=== PATIENT | male | born 1970 | race Caucasian/White ===

== ENCOUNTER 2023-12-27 09:17 | Inpatient (IN) | payer OTHER, SELFPAY ==
[2023-12-27] VITALS (9 sets, daily range): BP systolic 119–168; BP diastolic 85–99; PULSE 88–120; RESP 18–20; TEMP 36.4–37.2; O2SAT 91–100; BMI 27.9; BMI 26.0
--- NOTE | 2023-12-27 09:40 | ED_ITS ---
HPI - General Adult General Chief complaint: Unspecified Complaint, Adult Stated complaint: Infection in chin/lower lip Time Seen by Provider: 12/27/23 09:31 History of Present Illness HPI narrative: Patient is a 53-year-old gentleman who over the last several days has noted progressive swelling and induration of his chin. Today is the area of swelling started involve the lower lip and there is an open approximately 2 cm pustule on the right side of his chin draining exudate of fluid. Patient has Crohn's disease and receives regular infusions but is not certain what the infusions are. His last infusion was approximately 2 weeks ago. Patient has had no fevers no chills no night sweats he has been eating and drinking normally but overall does not feel well. Upon arrival I do note that his pulse is 116 but he is afebrile. Patient states that he was hospitalized a [place] [id number] hospital in the past for a similar infection on the right cheek. Related Data Home Medications Medication Instructions Recorded Confirmed acetaminophen 500 mg tablet mg PO 12/27/23 aspirin 81 mg capsule 81 mg PO DAILY 12/27/23 12/27/23 atorvastatin 40 mg tablet 40 mg PO DAILY 12/27/23 12/27/23 diphenhydramine HCl 25 mg tablet 25 mg PO QPM 12/27/23 12/27/23 infliximab-dyyb IV 12/27/23 insulin aspart U-100 .ROUTE 12/27/23 insulin detemir U-100 subcut 12/27/23 lisinopril 2.5 mg tablet 2.5 mg PO DAILY 12/27/23 12/27/23 metoprolol tartrate 25 mg tablet 25 mg PO DAILY 12/27/23 12/27/23 pantoprazole 40 mg granules 40 mg PO DAILY 12/27/23 12/27/23 delayed-release for susp in packet Allergies Allergy/AdvReac Type Severity Reaction Status Date / Time oxycodone [From OxyContin] Allergy Intermediate Verified 12/27/23 12:37 Review of Systems Status of ROS: Reports: 10 or more systems reviewed and unremarkable except as noted in History and below [facility] Medical History Crohn's disease ?K50.90 - Crohn's disease, unspecified, without complications (ICD-10) Exam Narrative: Exam Narrative: EXAM GENERAL: Patient appears comfortable EYES: No scleral icterus. Face: Massive swelling of the mandible inferiorly into the right with large pustule draining the white discharge. There is significant swelling of the lower lip but no intraoral abnormalities. LYMPH: No supraclavicular or cervical lymphadenopathy. SKIN: Visible skin seen during exam normal or with benign process only. EXT: No dependent lower extremity pedal edema. HEART: Regular rate and rhythm with no murmurs, rubs, or gallops. LUNGS: Clear to auscultation bilaterally with no crackles or wheezes. ABD: Soft, non tender, non distended. PSYCH: Good eye contact, speech is not pressured. Const: Vital Signs, click to edit/add: Vital Signs - 24 hr 12/27/23 09:22 12/27/23 12:36 Temperature 97.6 F Pulse Rate [Pulse Oximeter] 116 H 118 H Respiratory Rate 18 18 Blood Pressure [[facility] Upper Arm] 141/95 H 168/88 H Pulse Oximetry 100 97 Oxygen Delivery Me thod Room Air Room Air Course Course ED Course: Patient seen examined procalcitonin lactate CBC comprehensive metabolic panel blood cultures x2 ordered surgery consult requested immediately. Vital Signs Vital signs: Initial Vital Signs Temperature 97.6 F 12/27/23 09:22 Temperature Source Temporal Artery Scan 12/27/23 09:22 Pulse Rate 116 H 12/27/23 09:22 Respiratory Rate 18 12/27/23 09:22 Blood Pressure 141/95 H 12/27/23 09:22 Blood Pressure Mean 110 H 12/27/23 09:22 Blood Pressure Position Sitting 12/27/23 09:22 Pulse Oximetry 100 12/27/23 09:22 Oxygen Delivery Method Room Air 12/27/23 09:22 Vital Signs Temperature 97.6 F 12/27/23 09:22 Pulse Rate 116 H 12/27/23 09:22 Respiratory Rate 18 12/27/23 09:22 Blood Pressure 141/95 H 12/27/23 09:22 Pulse Oximetry 100 12/27/23 09:22 Oxygen Delivery Method Room Air 12/27/23 09:22 Temperature 97.6 F 12/27/23 09:22 Pulse Rate 118 H 12/27/23 12:36 Respiratory Rate 18 12/27/23 12:36 Blood Pressure 168/88 H 12/27/23 12:36 Pulse Oximetry 97 12/27/23 12:36 Oxygen Delivery Method Room Air 12/27/23 12:36 Medications Administered Medications: Generic Name Dose Route Start Last Admin Trade Name Caitlyn PRN Reason Stop Dose Admin Vancomycin HCl 1,750 mg/ 517.5 mls @ 258.75 mls/hr 12/27/23 11:00 12/27/23 11:40 Sodium Chloride IVPB 12/27/23 12:59 258.75 mls/hr ONCE ONE Administration Protocol Discontinued Medications Generic Name Dose Route Start Last Admin Trade Name Caitlyn PRN Reason Stop Dose Admin Hydromorphone HCl 0.5 mg 12/27/23 10:25 12/27/23 10:52 Hydromorphone 0.5 Mg/0.5 Ml Inj IVP 12/27/23 10:26 0.5 mg ONCE ONE Administration Sodium Chloride 1,000 mls @ 1,000 mls/hr 12/27/23 10:10 12/27/23 10:52 0.9 % Sodium Chloride 1000 Ml IV 12/27/23 11:09 1,000 mls/hr .Q1H TRAVIS Administration Piperacillin Sod/Tazobactam 100 mls @ 200 mls/hr 12/27/23 10:31 12/27/23 10:53 Sod 3.375 gm/ Sodium Chloride IVPB 12/27/23 10:32 200 mls/hr ONCE ONE Administration Insulin Human Regular 10 unit 12/27/23 11:35 12/27/23 11:40 Insulin Regular 100 Unit/Ml Inj SUBCUT 12/27/23 11:36 10 unit ONCE ONE Administration Medical Decision Making [facility] Narrative Medical decision making narrative: The patient is a 53-year-old immunosuppressed gentleman who comes in today with a draining swelling on the mandible. This is fairly centered but there are openings on the right-hand side consistent with draining pus. Patient has leukocytosis and hyper glycemia. I did give him 10 units of regular insulin subcutaneously and culture his blood and drainage. I discussed case with General surgery and with Ear Nose and Throat. I a did start him on IV vancomycin and Zosyn. I reviewed the CT scan with the radiologist who does not see any significant drainable abscess. This time patient will be admitted to the hospital for a facial cellulitis to continue IV antibiotics and repeat assessment. Differential diagnosis includes but not limited to abscess versus cellulitis verses osteomyelitis. Lab Data Labs: Lab Results 12/27/23 Range/Units 09:56 WBC 19.93 H (4.50-11.00) K/uL RBC 4.83 (4.30-5.90) m/uL Hgb 13.4 L (13.5-17.5) gm/dL Hct 39.8 (37.0-53.0) % MCV 82 (80-100) fL MCH 28 (26-34) pg MCHC 34 (32-36) gm/dL RDW Coeff of [place] 13.1 (11.5-15.5) % Plt Count 473 H (140-440) K/uL Neut % (Auto) 84.9 H (42.0-72.0) % Lymph % (Auto) 7.4 L (20-44) % [place] % (Auto) 5.7 (0.0-11.0) % Eos % (Auto) 1.4 (0.0-7.0) % Baso % (Auto) 0.3 (0.0-3.0) % Neut # (Auto) 16.90 H (1.7-7.0) K/uL Lymph # (Auto) 1.50 (0.90-2.90) K/uL [place] # (Auto) 1.10 H (0.00-0.90) K/UL Eos # (Auto) 0.30 (0.00-0.50) K/uL Baso # (Auto) 0.10 (0.00-0.30) K/uL Abs Immat Gran (auto) 0.10 (0.00-0.30) K/uL Imm/Tot Granulo (auto) 0.3 % Sodium 128 L (135-149) mmol/L Potassium 4.0 (3.6-5.1) mmol/L Chloride 90 L (96-114) mmol/L Carbon Dioxide 30 (20-32) mmol/L Anion Gap 8 (7-15) mEq/L BUN 16 (7-30) mg/dL Creatinine 1.0 (0.5-1.5) mg/dL Estimated Creat Clear 90.99 Estimated GFR 90 ml/min Glucose 504 H* (60-115) mg/dL Lactate 1.5 (0.5-1.9) mmol/L Calcium 10.2 (8.4-10.6) mg/dL Total Bilirubin 0.6 (0.1-1.5) mg/dL AST 22 (12-35) U/L ALT 31 (4-50) U/L Alkaline Phosphatase 248 H (40-150) U/L Total Protein 10.2 H (6.0-8.3) g/dL Albumin 4.2 (3.3-5.0) g/dL Procalcitonin 0.51 H (<0.50) ng/mL Discharge Plan Discharge Clinical Impression: Cellulitis of face Patient Disposition: Admitted As Observation Condition: Stable Activity Level: Other Discharge Diet: Other Prescriptions: No Action acetaminophen 500 mg tablet PO aspirin 81 mg capsule 81 mg PO DAILY atorvastatin 40 mg tablet 40 mg PO DAILY diphenhydramine HCl 25 mg tablet 25 mg PO QPM infliximab-dyyb [Inflectra] IV insulin aspart U-100 [Novolog FlexPen U-100 Insulin] .ROUTE insulin detemir U-100 [Levemir FlexTouch U100 Insulin] subcut lisinopril 2.5 mg tablet 2.5 mg PO DAILY metoprolol tartrate 25 mg tablet 25 mg PO DAILY pantoprazole [address] for susp in packet 40 mg PO DAILY Follow Up/Referrals: Provider,Not a Local [Primary Care Provider] -
--- NOTE | 2023-12-27 09:56 | CT_ITS ---
Patient: ARLETTE ANDINO Facility:?[facility] R[facility] Patient ID:?[id number] Site Patient ID:?[id number]. Site :?[id number] Study:?CT-ST Neck 98CC ISOVUE 370-12/27/2023 12:30:51 PM Ordering Physician:?DR. OROZCO Final Report: INDICATION: Abscess and facial swelling COMPARISON: None TECHNIQUE: CT of the neck with IV contrast. Multiplanar reformats are included. Contrast: 98 mL Isovue 370 FINDINGS: Severe subcutaneous edema and soft tissue swelling in the chin, submandibular soft tissues, and right inferior cheek. There areas of diminished enhancement with an overlying skin wound in the right anterior chin. No well-defined or drainable abscess. The adjacent mandible has only 1 left-sided tooth. No periapical abscess or brii bony destruction. No extension of the inflammatory process into the floor of the mouth or the deep parapharyngeal spaces. Reactive appearing cervical adenopathy. The included intracranial contents are normal. Orbits and globes are normal. Mastoids and middle ears are clear. Paranasal sinuses are well aerated with a small amount of mucosal thickening in the maxillary sinus on the right. The parotid glands are normal. The submandibular glands are normal. The thyroid gland is normal. No airway deviation or compression. Normal tonsils. Normal epiglottis. Normal upper trachea. The included lung apices are clear. Atherosclerotic calcifications of the carotid bulbs without significant stenosis. No venous thrombosis or thrombophlebitis. Degenerative change in the spine. Temporomandibular joints are normally aligned. IMPRESSION: Severe chin, submandibular, and right cheek cellulitis. No drainable abscess. No extension to involve the floor of the mouth or the deep parapharyngeal spaces. Please note that all CT scans at this facility use dose modulation, iterative reconstruction, and/or weight-based dosing when appropriate to reduce radiation dose to as low as reasonably achievable. Dictated by Morenita Sanchez MD @ 12/27/2023 12:46:34 PM Signed by:?Morenita Sanchez MD @12/27/2023 12:46:34 PM (Electronic Signature)
[2023-12-27 10:13] LABS: Lactate* 1.5 mmol/L (0.5-1.9)
[2023-12-27 10:17] LABS: Basophils Percent Auto 0.3 % (0.0-3.0); Eosinophils Percent Auto 1.4 % (0.0-7.0); Hematocrit 39.8 % (37.0-53.0); Hemoglobin* 13.4 gm/dL (13.5-17.5); Immature Granulocytes Pct Auto 0.3 %; Lymphocytes Percent Auto 7.4 % (20-44); Mean Corpuscular HGB Conc 34 gm/dL (32-36); Mean Corpuscular Hemoglobin 28 pg (26-34); Mean Corpuscular Volume 82 fL (80-100); Monocytes Percent Auto 5.7 % (0.0-11.0); Neutrophils Percent Auto 84.9 % (42.0-72.0); Platelet Count* 473 K/uL (140-440); RDW Coefficient of Variation % 13.1 % (11.5-15.5); Red Blood Count 4.83 m/uL (4.30-5.90); White Blood Count* 19.93 K/uL (4.50-11.00)
[2023-12-27 10:19] LABS: Slide Review Reflex No
[2023-12-27 10:29] LABS: Albumin* 4.2 g/dL (3.3-5.0)
[2023-12-27 10:30] LABS: Chloride* 90 mmol/L (96-114); Sodium* 128 mmol/L (135-149)
[2023-12-27 10:32] LABS: Alkaline Phosphatase* 248 U/L (40-150); Anion Gap 8 mEq/L (7-15); Aspartate Amino Transferase* 22 U/L (12-35); Bilirubin Total* 0.6 mg/dL (0.1-1.5); Blood Urea Nitrogen* 16 mg/dL (7-30); Carbon Dioxide* 30 mmol/L (20-32); Est. Creatinine Clearance* 90.99; Estimated Glomerular Filt Rate 90 ml/min; Total Protein* 10.2 g/dL (6.0-8.3)
[2023-12-27 10:33] LABS: Alanine Aminotransferase* 31 U/L (4-50); Calcium* 10.2 mg/dL (8.4-10.6)
[2023-12-27 10:50] LABS: Procalcitonin* 0.51 ng/mL (<0.50)
[2023-12-27 10:51] LABS: Glucose* 504 mg/dL (60-115)
[2023-12-27] MEDS: HYDROmorphone 0.5 mg/0.5 ml inj IVP ×3 (10:52→17:17)
[2023-12-27] MEDS: 0.9 % SODIUM CHLORIDE 1000 ml 1,000 ML IV (10:52)
[2023-12-27] MEDS: PIPERACILLIN/TAZOBACTAM 3.375 GM in 0.9 % SODIUM CHLORIDE Mini-bag 100 ML IVPB ×3 (10:53→23:35)
[2023-12-27] MEDS: LACTATED RINGERS 1000 ML 1,000 ML 125 ML IV (14:21)
[2023-12-27 14:28] LABS: Hemoglobin A1C* 10.4 % (0-5.6)
[2023-12-27 14:30] LABS: C Reactive Protein* 7.8 mg/dL (0.5-1.0)
[2023-12-27] MEDS: METHYLPREDNISOLONE SOD SUCC 40 MG/ML IVP (14:34)
[2023-12-27] MEDS: KETOROLAC 30 MG/ML inj IVP (14:34)
--- NOTE | 2023-12-27 14:34 | PM.IMHP1 ---
Hospitalist- H&P: HPI History of Present Illness Date Seen: 12/27/23 Chief complaint: Facial cellulitis Narrative: Akira Merchant is a 53 year old male past medical history significant for diabetes mellitus type 2 sets, insulin dependent, hypertension, hyperlipidemia, CAD, ischemic cardiomyopathy Crohn's disease, GERD, tobacco dependence is admitted to the medical floor from the ED for further management facial cellulitis. Patient reports onset of facial swelling and pain of the chin approximately 1 week ago, slowly worsening. Overnight, lower lip significantly swelled without airway compromise. No difficulty swallowing. Has had bloody, purulent drainage from an open wound on the chin. Mild, intermittent headaches. Denies dizziness. Mild malaise, subjective fevers. Denies abdominal pain. Has had intermittent nausea without vomiting or diarrhea. No UTI symptoms. Patient had a similar episode in 2021 for which he was hospitalized for a few days. Has recurrent mild episodes of swelling which he manages with warm compresses. Patient is currently living with a friend. Recently released from a 90 day assisted stay. Has not been compliant with his medications, having run out and not gotten refills. Has not used his long-acting insulin in several months. He tells me his glucose checks while in assisted were in the 100s, using only insulin sliding scale once daily. Current smoker, <1 PPD. Denies alcohol use. History of meth use, last maybe 6 months ago. PCP is [facility]. Review of Systems Narrative: REVIEW OF SYSTEMS: Complete review of systems performed and negative unless otherwise stated in HPI or below. [facility] Medical History (Updated 12/27/23 @ 15:47 by Jordyn Bonner PA-C) Methamphetamine abuse ?F15.10 - Other stimulant abuse, uncomplicated (ICD-10) Tobacco dependence ?F17.200 - Nicotine dependence, unspecified, uncomplicated (ICD-10) Renal insufficiency ?N28.9 - Disorder of kidney and ureter, unspecified (ICD-10) Crohn's colitis ?K50.10 - Crohn's disease of large intestine without complications (ICD-10) Diabetes mellitus type 2, insulin dependent ?E11.9 - Type 2 diabetes mellitus without complications (ICD-10) ?Z79.4 - terminal operations manager (current) use of insulin (ICD-10) Hyperlipidemia ?E78.5 - Hyperlipidemia, unspecified (ICD-10) Ischemic cardiomyopathy ?I25.5 - Ischemic cardiomyopathy (ICD-10) CAD (coronary artery disease) ?I25.10 - Atherosclerotic heart disease of [place] coronary artery without angina pectoris (ICD-10) Hypertension ?I10 - Essential (primary) hypertension (ICD-10) Crohn's disease ?K50.90 - Crohn's disease, unspecified, without complications (ICD-10) Surgical History Presence of coronary angioplasty implant and graft ?Z95.5 - Presence of coronary angioplasty implant and graft (ICD-10) Social History What is your current living situation?: I presently have a place to live Problems where you live: no known problems Problems where you live details: pt lives in [facility] In the past 12 months, utilities in danger of being shut off: no In past 12 months, lack of transportation kept you from medical appts, meetings, work, or getting things needed for daily living: no In the past 12 mos, have been you worried that your food would run out before you had money to buy more?: never true In the past 12 mos, the food you bought just didn't last and you didn't have money to buy more?: never true Highest level of school completed/degree received: 11th grade Smoking Status: Current every day smoker What tobacco products do you use: cigarettes Years smoked: 15 Do you use any of these nicotine containing products: None Second hand tobacco smoke exposure: Yes How often do you have a drink containing alcohol: never How often do you have six or more drinks on one occasion: Never AUDIT-C Alcohol total score: 0 Non-prescribed substance use: denies use Caffeine: Yes How often does anyone, including family, friends and others, physically hurt you: never How often does anyone, including family, friends and others, insult or talk down to you: never How often does anyone, including family, friends and others, threaten you with harm: never How often does anyone, including family, friends and others, scream or curse at you: never service: No Meds Home Medications and Allergies Home Medications Medication Instructions Recorded Confirmed Type acetaminophen 500 mg tablet mg PO 12/27/23 History aspirin 81 mg capsule 81 mg PO DAILY 12/27/23 12/27/23 History atorvastatin 40 mg tablet 40 mg PO DAILY 12/27/23 12/27/23 History diphenhydramine HCl 25 mg tablet 25 mg PO QPM 12/27/23 12/27/23 History insulin aspart U-100 1 - 12 unit subcut TIDWMEAL 12/27/23 12/27/23 History insulin detemir U-100 40 unit subcut HS 12/27/23 12/27/23 History lisinopril 2.5 mg tablet 2.5 mg PO DAILY 12/27/23 12/27/23 History metoprolol tartrate 25 mg tablet 12.5 mg PO BID 12/27/23 12/27/23 History pantoprazole 40 mg granules 40 mg PO DAILY 12/27/23 12/27/23 History delayed-release for susp in packet Allergies Allergy/AdvReac Type Severity Reaction Status Date / Time oxycodone [From OxyContin] Allergy Intermediate Verified 12/27/23 12:37 Exam Narrative: Exam Narrative: PHYSICAL EXAM General: Pleasant, conversant, NAD HEENT: Large, swollen, firm mass from chin extending slightly distally, nontender currently, draining sanguinous, purulent fluid. Lower lip edematous without swelling of tongue or palate. Able to open mouth 3 finger breadths. No drainage noted intraorally Cardiovascular: RRR, S1S2. No pitting edema Pulmonary: CTA bilaterally without rhonchi, rales, expiratory wheezes. No dyspnea on room air Abdominal: Soft, nondistended, NTTP Neurological: Alert, answering questions appropriately, cranial nerves intact, no focal findings Extremities: No gross joint deformity or swelling. AROMI. Neurovascularly intact Skin: Warm, dry. Const: Vital Signs, click to edit/add: Vital Signs - 24 hr 12/27/23 09:22 12/27/23 12:36 12/27/23 13:34 Temperature 97.6 F Pulse Rate [Left B rachial] Pulse Rate [Pulse Oximeter] 116 H 118 H Respiratory Rate 18 18 Blood Pressure [Le ft Arm] Blood Pressure [Ri ght Upper Arm] 141/95 H 168/88 H Pulse Oximetry 100 97 92 Oxygen Delivery Me thod Room Air Room Air 12/27/23 13:54 Temperature 99 F Pulse Rate [Left B rachial] 118 H Pulse Rate [Pulse Oximeter] Respiratory Rate 18 Blood Pressure [Le ft Arm] 161/99 H Blood Pressure [Ri ght Upper Arm] Pulse Oximetry 94 Oxygen Delivery Me thod Room Air Hospitalist - H&P: Result Labs Labs: Short CBC 12/27/23 Range/Units 09:56 WBC 19.93 H (4.50-11.00) K/uL Hgb 13.4 L (13.5-17.5) gm/dL Hct 39.8 (37.0-53.0) % Plt Count 473 H (140-440) K/uL BMP 12/27/23 09:56 Sodium 128 L Potassium 4.0 Chloride 90 L Carbon Dioxide 30 BUN 16 Creatinine 1.0 Glucose 504 H* Calcium 10.2 Liver Function 12/27/23 Range/Units 09:56 Total Bilirubin 0.6 (0.1-1.5) mg/dL AST 22 (12-35) U/L ALT 31 (4-50) U/L Alkaline Phosphatase 248 H (40-150) U/L Albumin 4.2 (3.3-5.0) g/dL Imaging CT soft tissue neck: Attestation: I have reviewed the pertinent imaging results. Radiologist's impression: CT of the neck with IV contrast. Multiplanar reformats are included. Contrast: 98 mL Isovue 370 FINDINGS: Severe subcutaneous edema and soft tissue swelling in the chin, submandibular soft tissues, and right inferior cheek. There areas of diminished enhancement with an overlying skin wound in the right anterior chin. No well-defined or drainable abscess. The adjacent mandible has only 1 left-sided tooth. No periapical abscess or brii bony destruction. No extension of the inflammatory process into the floor of the mouth or the deep parapharyngeal spaces. Reactive appearing cervical adenopathy. The included intracranial contents are normal. Orbits and globes are normal. Mastoids and middle ears are clear. Paranasal sinuses are well aerated with a small amount of mucosal thickening in the maxillary sinus on the right. The parotid glands are normal. The submandibular glands are normal. The thyroid gland is normal. No airway deviation or compression. Normal tonsils. Normal epiglottis. Normal upper trachea. The included lung apices are clear. Atherosclerotic calcifications of the carotid bulbs without significant stenosis. No venous thrombosis or thrombophlebitis. Degenerative change in the spine. Temporomandibular joints are normally aligned. IMPRESSION: Severe chin, submandibular, and right cheek cellulitis. No drainable abscess. No extension to involve the floor of the mouth or the deep parapharyngeal spaces. Assessment and Plan Assessment and plan (1) Sepsis: Problem comment: Facial cellulitis Leukocytosis > 19, tachycardia, lactate 1.5, CRP 7.8, procalcitonin 0.51, currently afebrile and otherwise vitally stable Continue vancomycin and Zosyn as initiated in ED, pharmacy to dose, monitor creatinine Continue IVF Telemetry Trend labs, BCx2 pending, wound culture pending Status: Acute (2) Cellulitis of face: Problem comment: With history of same 05/2022 (MSSA at the time), admitted to [facility] Open, draining wound (which he picks at). Culture collected, pending. MRSA pending Continue vancomycin and Zosyn as initiated in ED, pharmacy to dose, monitor creatinine Methylprednisolone 40 mg IV x5 doses Pain management as needed Status: Acute (3) Crohn's colitis: Problem comment: Immunosuppressed Stable, managed with Inflectra infusions, last infusion 12/14/[address] Garcia Status: Chronic (4) Diabetes mellitus type 2, insulin dependent: Problem comment: A1c 10.4. (Reports glucose checks typically around 150) Usual home dose Levemir previously 40 units but has not been using for months, instead using only tid sliding scale. Will start back at 10 units and adjust as necessary Diabetic diet, glucose checks ACHS, insulin sliding scale Status: Chronic (5) Hypertension: Problem comment: Restart lisinopril and metoprolol. Ran out and never refilled Status: Chronic (6) Hyperlipidemia: Problem comment: Restart statin. Ran out and never refilled Status: Chronic (7) Renal insufficiency: Problem comment: Creatinine 1.0, baseline 1.0-1.5 Avoid nephrotoxic medications, continue to monitor Status: Chronic Total Time Spent Total Time Spent: Total time spent caring for the patient today was 60 minutes. This includes time spent for the visit reviewing the chart, time spent during the visit, time spent after the visit and documentation and planning in coordination of care.
[2023-12-27] MEDS: INSULIN ASPART 100 UNIT/ML SUBCUT (16:52)
--- NOTE | 2023-12-27 17:40 | PC.NURSE ---
shift note: admit to rm @ 1335 via WC. pt a&ox3. pt medicated for cheek & chin pain 8-06/26 x2 with relief. chin with bloody discharge. lips very edematous. pt denies sob or difficulty swallowing. Ls clr. IV patent. Hr levated 118-120/min with elevated BP.
[2023-12-27] MEDS: LACTATED RINGERS 1000 ML 1,000 ML IV (18:03)
[2023-12-27] MEDS: INSULIN ASPART 100 UNIT/ML 12 UNIT SUBCUT (21:41)
[2023-12-27] MEDS: ENOXAPARIN 30 MG/0.3ML INJ SUBCUT (21:43)
[2023-12-27] MEDS: METOPROLOL TARTRATE 25 MG TABLET 12.5 MG PO (21:43)
[2023-12-27] MEDS: diphenhydrAMINE 25 MG CAPSULE PO (21:43)
[2023-12-27] MEDS: INSULIN ASPART 100 UNIT/ML 8 UNIT SUBCUT (23:49)
[2023-12-28] VITALS (7 sets, daily range): BP systolic 108–141; BP diastolic 69–92; PULSE 80–93; RESP 18; TEMP 36.7–37.2; O2SAT 93–99
[2023-12-28] MEDS: LACTATED RINGERS 1000 ML 1,000 ML 125 ML IV ×3 (00:37→22:33)
[2023-12-28] MEDS: PIPERACILLIN/TAZOBACTAM 3.375 GM in 0.9 % SODIUM CHLORIDE Mini-bag 100 ML IVPB ×4 (05:47→22:33)
--- NOTE | 2023-12-28 06:54 | PC.NURSE ---
SHIFT NOTE : Pt fatigued overnight, denied pain. Denies SOB, CP, and N/V. Up SBA, tolerating well. Blood sugar at HS was 597, MD updated and insulin given as ordered. Recheck at 2300 was 451, MD updated and insulin given as ordered. Rechecked blood sugar again at 0200 and it was 329. Afebrile, oxygen saturations mid to high 90's on RA.
[2023-12-28] MEDS: OMEPRAZOLE 20 MG CAPSULE DR PO (08:34)
[2023-12-28] MEDS: lisinopriL 5 MG TABLET 2.5 MG PO (08:34)
[2023-12-28] MEDS: METOPROLOL TARTRATE 25 MG TABLET 12.5 MG PO ×2 (08:34→20:50)
[2023-12-28] MEDS: ASPIRIN 81 MG TABLET EC PO (08:34)
[2023-12-28] MEDS: METHYLPREDNISOLONE SOD SUCC 40 MG/ML IVP (08:34)
[2023-12-28] MEDS: ATORVASTATIN CALCIUM 40 MG TABLET PO (08:34)
[2023-12-28] MEDS: INSULIN ASPART 100 UNIT/ML SUBCUT ×4 (08:35→20:50)
[2023-12-28] MEDS: HYDROmorphone 0.5 mg/0.5 ml inj IVP ×3 (08:35→17:59)
[2023-12-28] MEDS: SODIUM CHLORIDE 0.9 % (FLUSH) 10 ML SYRINGE 5 ML IVF (08:36)
[2023-12-28 08:48] LABS: HCO3 VBG 29 mmol/L (21-28); PCO2 VBG 43 mmHG (40-50); PO2 VBG 34.3 mmHG (25-47); pH VBG 7.439 (7.32-7.43)
[2023-12-28 08:53] LABS: Basophils Percent Auto 0.1 % (0.0-3.0); Hematocrit 33.9 % (37.0-53.0); Hemoglobin* 11.3 gm/dL (13.5-17.5); Immature Granulocytes Pct Auto 0.3 %; Lymphocytes Percent Auto 9.5 % (20-44); Mean Corpuscular HGB Conc 33 gm/dL (32-36); Mean Corpuscular Hemoglobin 28 pg (26-34); Mean Corpuscular Volume 84 fL (80-100); Monocytes Percent Auto 5.6 % (0.0-11.0); Neutrophils Percent Auto 84.5 % (42.0-72.0); Platelet Count* 379 K/uL (140-440); RDW Coefficient of Variation % 13.3 % (11.5-15.5); Red Blood Count 4.03 m/uL (4.30-5.90); White Blood Count* 17.92 K/uL (4.50-11.00)
[2023-12-28 08:54] LABS: Slide Review Reflex No
[2023-12-28 09:04] LABS: Albumin* 3.4 g/dL (3.3-5.0); Chloride* 104 mmol/L (96-114); Sodium* 135 mmol/L (135-149)
[2023-12-28 09:05] LABS: Potassium* 4.3 mmol/L (3.6-5.1)
[2023-12-28 09:06] LABS: Creatinine* 0.9 mg/dL (0.5-1.5); Estimated Glomerular Filt Rate 102 ml/min
[2023-12-28 09:07] LABS: Alanine Aminotransferase* 26 U/L (4-50); Alkaline Phosphatase* 173 U/L (40-150); Anion Gap 4 mEq/L (7-15); Aspartate Amino Transferase* 19 U/L (12-35); Bilirubin Direct* 0.1 mg/dL (0.0-0.5); Bilirubin Total* 0.3 mg/dL (0.1-1.5); Blood Urea Nitrogen* 22 mg/dL (7-30); Carbon Dioxide* 27 mmol/L (20-32); Gamma Glutamyl Transpeptidase* 177 U/L (8-55); Glucose* 287 mg/dL (60-115); Phosphorus* 3.7 mg/dL (2.5-4.5); Prothrombin Time 14.9 Seconds; Total Protein* 8.1 g/dL (6.0-8.3)
[2023-12-28 09:08] LABS: Calcium* 9.2 mg/dL (8.4-10.6)
[2023-12-28 09:24] LABS: Procalcitonin* 0.39 ng/mL (<0.50)
[2023-12-28 09:31] LABS: Troponin I* < 0.01 ng/mL (0.01-0.04)
[2023-12-28 09:32] LABS: C Reactive Protein* 22.9 mg/dL (0.5-1.0)
--- NOTE | 2023-12-28 10:10 | P.IMCN_ITS ---
Date of Consult Patient: [facility] Patient Consult date: 12/28/23 Requesting Physician: Hospitalist Primary Care Provider: Not a Local Provider Consult Narrative Reason for consult: Wound COLLAR [employer]NER consulted for assistance with management of Facial cellulitis. Narrative: Akira Merchant is a 53 year old male past medical history significant for diabetes mellitus type 2 sets, insulin dependent, hypertension, hyperlipidemia, CAD, ischemic cardiomyopathy Crohn's disease, GERD, tobacco dependence is admitted to the medical floor from the ED for further management facial celluli tis. Facial cellulitis extending from lips, lower facial area, cervical region. Lower lip continues to present with extensive swelling. Noticable decrease with antibiotics and steroids from yesterday. Actual open wound present for approximately 1-2 weeks, gradually getting worse. Has had this happen in the past. Possibly last time from spider bite. Unclear cause at this point. Appreciate care of Hospitalist team for IV antibiotics and steroids. Diabetes not in good control. Checks daily, results ranging from 100-300s. Working toward lower blood glucose levels. Has not been taking medications as prescribed. Review of Systems Status of ROS: Reports: 6 or more systems reviewed and unremarkable except as noted in History and below Integ/Breast: Reports: redness and new lesion Allergy/Immuno: Reports: facial swelling PFSH [facility] Medical History Methamphetamine abuse ?F15.10 - Other stimulant abuse, uncomplicated (ICD-10) Tobacco dependence ?F17.200 - Nicotine dependence, unspecified, uncomplicated (ICD-10) Renal insufficiency ?N28.9 - Disorder of kidney and ureter, unspecified (ICD-10) Crohn's colitis ?K50.10 - Crohn's disease of large intestine without complications (ICD-10) Diabetes mellitus type 2, insulin dependent ?E11.9 - Type 2 diabetes mellitus without complications (ICD-10) ?Z79.4 - jail (current) use of insulin (ICD-10) Hyperlipidemia ?E78.5 - Hyperlipidemia, unspecified (ICD-10) Ischemic cardiomyopathy ?I25.5 - Ischemic cardiomyopathy (ICD-10) CAD (coronary artery disease) ?I25.10 - Atherosclerotic heart disease of [place] coronary artery without angina pectoris (ICD-10) Hypertension ?I10 - Essential (primary) hypertension (ICD-10) Crohn's disease ?K50.90 - Crohn's disease, unspecified, without complications (ICD-10) Surgical History Presence of coronary angioplasty implant and graft ?Z95.5 - Presence of coronary angioplasty implant and graft (ICD-10) Social History What is your current living situation?: I presently have a place to live Problems where you live: no known problems Problems where you live details: pt lives in [facility] In the past 12 months, utilities in danger of being shut off: no In past 12 months, lack of transportation kept you from medical appts, meetings, work, or getting things needed for daily living: no In the past 12 mos, have been you worried that your food would run out before you had money to buy more?: never true In the past 12 mos, the food you bought just didn't last and you didn't have money to buy more?: never true Highest level of school completed/degree received: 11th grade Smoking Status: Current every day smoker What tobacco products do you use: cigarettes Years smoked: 15 Do you use any of these nicotine containing products: None Second hand tobacco smoke exposure: Yes How often do you have a drink containing alcohol: never How often do you have six or more drinks on one occasion: Never AUDIT-C Alcohol total score: 0 Non-prescribed substance use: denies use Caffeine: Yes How often does anyone, including family, friends and others, physically hurt you : never How often does anyone, including family, friends and others, insult or talk down to you: never How often does anyone, including family, friends and others, threaten you with harm: never How often does anyone, including family, friends and others, scream or curse at you: never service: No Meds Home Medications and Allergies Home Medications Medication Instructions Recorded Confirmed Type acetaminophen 500 mg tablet mg PO 12/27/23 History aspirin 81 mg capsule 81 mg PO DAILY 12/27/23 12/27/23 History atorvastatin 40 mg tablet 40 mg PO DAILY 12/27/23 12/27/23 History diphenhydramine HCl 25 mg tablet 25 mg PO QPM 12/27/23 12/27/23 History insulin aspart U-100 1 - 12 unit subcut TIDWMEAL 12/27/23 12/27/23 History insulin detemir U-100 40 unit subcut HS 12/27/23 12/27/23 History lisinopril 2.5 mg tablet 2.5 mg PO DAILY 12/27/23 12/27/23 History metoprolol tartrate 25 mg tablet 12.5 mg PO BID 12/27/23 12/27/23 History pantoprazole 40 mg granules 40 mg PO DAILY 12/27/23 12/27/23 History delayed-release for susp in packet Allergies Allergy/AdvReac Type Severity Reaction Status Date / Time oxycodone [From OxyContin] Allergy Intermediate Verified 12/27/23 12:37 Exam Const: Vital Signs, click to edit/add: Vital Signs - 24 hr 12/27/23 12:36 12/27/23 13:31 12/27/23 13:33 Temperature Pulse Rate [Left B rachial] Pulse Rate [Pulse Oximeter] 118 H Respiratory Rate 18 18 Blood Pressure [Le ft Arm] Blood Pressure [Ri ght Upper Arm] 168/88 H Pulse Oximetry 97 92 91 Oxygen Delivery [facility] Room Air Room Air Room Air 12/27/23 13:33 12/27/23 13:34 12/27/23 13:54 Temperature 99 F 99 F Pulse Rate [Left B rachial] 120 H 118 H Pulse Rate [Pulse Oximeter] Respiratory Rate 18 18 Blood Pressure [Le ft Arm] 161/99 H 161/99 H Blood Pressure [Ri ght Upper Arm] Pulse Oximetry 94 92 94 Oxygen Delivery [facility] Room Air Room Air 12/27/23 15:00 12/27/23 19:00 12/27/23 23:00 Temperature 98 F Pulse Rate [Left B rachial] 120 H 92 Pulse Rate [Pulse Oximeter] Respiratory Rate 18 18 18 Blood Pressure [Le ft Arm] 119/85 Blood Pressure [Ri ght Upper Arm] Pulse Oximetry 96 Oxygen Delivery Mt [facility]od Room Air 12/27/23 23:00 12/28/23 03:00 12/28/23 07:00 Temperature 98.2 F 99 F Pulse Rate [Left B rachial] 88 80 85 Pulse Rate [Pulse Oximeter] Respiratory Rate 20 18 18 Blood Pressure [Le ft Arm] 149/99 H 108/74 Blood Pressure [Ri ght Upper Arm] Pulse Oximetry 96 96 Oxygen Delivery Me thod Room Air Room Air 12/28/23 07:00 Temperature 98.3 F Pulse Rate [Left B rachial] 80 Pulse Rate [Pulse Oximeter] Respiratory Rate 18 Blood Pressure [Le ft Arm] 134/92 H Blood Pressure [Ri ght Upper Arm] Pulse Oximetry 99 Oxygen Delivery Me thod Room Air Documenting provider has reviewed patient's vital signs: yes Common normals: no apparent distress General appearance: cooperative Orientation/consciousness: Yes awake, Yes oriented to person, Yes oriented to place and Yes oriented to time HENMT: Face and sinus: facial erythema, facial edema and facial tenderness Resp: Common normals: normal respiratory effort Neuro: Sensorium/orientation: awake, oriented to person, oriented to place and oriented to time Speech: speech normal Skin: Wounds: wounds noted size (Inferior chin depth = 1.2cm. Wound wraps from right superior to left inferior chin.), bed (Inferior opening probes to bone, firm today. Unable to visualize full wound bed. [place] 12-11 o'clock. ) pale, with slough, edematous, crusted and with undermining, drainage serosanguineous and purulent, margins macerated, without odor, open and with surrounding erythema Labs Labs: Short CBC 12/27/23 12/28/23 Range/Units 09:56 08:43 WBC 19.93 H 17.92 H (4.50-11.00) K/uL Hgb 13.4 L 11.3 L (13.5-17.5) gm/dL Hct 39.8 33.9 L (37.0-53.0) % Plt Count 473 H 379 (140-440) K/uL BMP 12/27/23 12/28/23 09:56 08:43 Sodium 128 L 135 Potassium 4.0 4.3 Chloride 90 L 104 Carbon Dioxide 30 27 BUN 16 22 Creatinine 1.0 0.9 Glucose 504 H* 287 H Calcium 10.2 9.2 Cardiac Enzymes 12/28/23 Range/Units 08:43 Troponin I < 0.01 L (0.01-0.04) ng/mL Liver Function 12/27/23 12/28/23 Range/Units 09:56 08:43 Total Bilirubin 0.6 0.3 (0.1-1.5) mg/dL Direct Bilirubin 0.1 (0.0-0.5) mg/dL GGT 177 H (8-55) U/L AST 22 19 (12-35) U/L ALT 31 26 (4-50) U/L Alkaline Phosphatase 248 H 173 H (40-150) U/L Albumin 4.2 3.4 (3.3-5.0) g/dL Assessment and Plan Assessment and plan (1) Sepsis: Problem comment: Facial cellulitis Leukocytosis > 19, tachycardia, lactate 1.5, CRP 7.8, procalcitonin 0.51, currently afebrile and otherwise vitally stable Continue vancomycin and Zosyn as initiated in ED, pharmacy to dose, monitor creatinine Continue IVF Telemetry Trend labs, BCx2 pending, wound culture pending Status: Acute Assessment and Plan: Hospital team to continue to manage big picture medical care. WBC count decreased today with current treatment. Appreciate the ability to coordinate care today with Dr. Calix for plan on Wound Care. (2) Diabetes mellitus type 2, insulin dependent: Problem comment: A1c 10.4. (Reports glucose checks typically around 150) Usual home dose Levemir previously 40 units but has not been using for months, instead using only tid sliding scale. Will start back at 10 units and adjust as necessary Diabetic diet, glucose checks ACHS, insulin sliding scale Status: Chronic (3) Cellulitis of face: Problem comment: With history of same 05/2022 (MSSA at the time), admitted to [facility] Open, draining wound (which he picks at). Culture collected, pending. MRSA pending Continue vancomycin and Zosyn as initiated in ED, pharmacy to dose, monitor creatinine Methylprednisolone 40 mg IV x5 doses Pain management as needed Status: Acute Assessment and Plan: See above exam. Inferior aspect of Wound does probe deeply. 1.2cm. Cleansed with saline to loosen surrounding debris and drainage. Review of CT completed yesterday finds no fluid filled abscess or extending infection into bone. ENT has been consulted by Hospital team, review of imaging to ensure extent of cellulitis. Likely not much tissue before bone exposure. Will need continued wound care likely after hospital course. No debridement today. Will allow for IV antibiotics and steroids to continue to assist with extensive infection. Met with Dr. Calix to coordinate care and dressing changes. Wound Care Treatment plan: -Cleanse with saline or Vashe if able to obtain. -Allow Vashe moistened gauze to remain in depth of wound bed approximately 3-5 minutes to help with bacterial burden. -Utilize one solid strip of aquacel ag. Lay over wound bed, packing inferior end into depth. -Cover with ABD pad/tape -Change dressing every other day.
[2023-12-28 11:34] LABS: Thyroid Stimulating Hormone* 0.135 uIU/mL (0.270-4.20)
--- NOTE | 2023-12-28 14:49 | P.IMPN_ITS ---
Progress Note: A&P Assessment and plan (1) Cellulitis of face: Problem details: see picture from 12/27 as separate chart note appreciate consult with wound clinic. they recommended: Wound Care Treatment plan: -Cleanse with saline or Vashe if able to obtain. -Allow Vashe moistened gauze to remain in depth of wound bed approximately 3-5 minutes to help with bacterial burden. -Utilize one solid strip of aquacel ag. Lay over wound bed, packing inferior end into depth. -Cover with ABD pad/tape -Change dressing every other day. With history of same 05/2022 (MSSA at the time), admitted to [facility] Culture collected, pending. MRSA neg Continue vancomycin and Zosyn as initiated in ED, pharmacy to dose, monitor creatinine Methylprednisolone x 2 doses, PO prednisone for 3 daily doses (lip swelling) + benadryl Pain management as needed Status: Acute (2) Sepsis: Problem details: resolved; blood culture NGTD - vitals stable. Facial cellulitis Status: Acute (3) Diabetes mellitus type 2, insulin dependent: Problem details: A1c 10.4. (Reports glucose checks typically around 150) Usual home dose Levemir previously 40 units but has not been using for months - starting back at 15 units on 12/27 with SSI support Diabetic diet, glucose checks ACHS, insulin sliding scale Status: Chronic (4) Crohn's colitis: Problem details: Immunosuppressed Stable, managed with Inflectra infusions, last infusion 12/14/[address] Garcia Status: Chronic (5) Ischemic cardiomyopathy: Status: Acute (6) Hypertension: Problem details: Restart lisinopril (increased to 5mg from 2.5mg on 12/27) and metoprolol. Ran out and never refilled Status: Chronic Subjective Date Seen: 12/28/23 Interval history: Daily Progress Note - Hospital Medicine Day #:2 CC: facial cellulitis OVERNIGHT UPDATES FROM STAFF & MED, LAB, IMAGING UPDATES afebrile. vitally stable. WBC count 19.9 --> 17.9 hgb 13.4 -->11.3 chemistries reviewed. stable/improved. CRP uptrending 7.8 --> 22.9 A1C 10.4 - BLOOD SUGARS 500-248 NO MRSA wound culture pending BC NGTD Objective: disshelved; poor hygiene and self care evident Vitals: see above Lungs: Clear. Cardiac: S1S2. ENT: large swollen lower lip - similar to yesterday abscess/cellulitic region of chin, submental space down by 50%, still draining mild lymphadenopathy palpable can open mouth widely, no airway impact evident Disposition/Potential discharge - Likely to return to previous living situation. Exam Const: Vital Signs, click to edit/add: Vital Signs - 24 hr 12/27/23 15:00 12/27/23 19:00 12/27/23 23:00 Temperature 98 F Pulse Rate [Left B rachial] 120 H 92 Respiratory Rate 18 18 18 Blood Pressure [Le ft Arm] 119/85 Pulse Oximetry 96 Oxygen Delivery Me thod Room Air 12/27/23 23:00 12/28/23 03:00 12/28/23 07:00 Temperature 98.2 F 99 F Pulse Rate [Left B rachial] 88 80 85 Respiratory Rate 20 18 18 Blood Pressure [Le ft Arm] 149/99 H 108/74 Pulse Oximetry 96 96 Oxygen Delivery Me thod Room Air Room Air 12/28/23 07:00 12/28/23 11:00 12/28/23 12:15 Temperature 98.3 F 98.0 F Pulse Rate [Left B rachial] 80 82 Respiratory Rate 18 18 Blood Pressure [Le ft Arm] 134/92 H 141/88 H Pulse Oximetry 99 97 97 Oxygen Delivery Me thod Room Air Room Air Labs Labs: Laboratory Results - last 24 hr 12/28/23 08:43 WBC 17.92 H RBC 4.03 L Hgb 11.3 L Hct 33.9 L MCV 84 MCH 28 MCHC 33 RDW Coeff of Irma 13.3 Plt Count 379 Neut % (Auto) 84.5 H Lymph % (Auto) 9.5 L Anson % (Auto) 5.6 Eos % (Auto) 0.0 Baso % (Auto) 0.1 Neut # (Auto) 15.10 H Lymph # (Auto) 1.70 Anson # (Auto) 1.00 H Eos # (Auto) 0.00 Baso # (Auto) 0.00 Abs Immat Gran (auto) 0.10 Imm/Tot Granulo (auto) 0.3 INR 1.10 VBG pH 7.439 H VBG pCO2 43 VBG pO2 34.3 VBG HCO3 29 H Sodium 135 Potassium 4.3 Chloride 104 Carbon Dioxide 27 Anion Gap 4 L BUN 22 Creatinine 0.9 Estimated Creat Clear 101.10 Estimated GFR 102 Glucose 287 H Lactate 1.0 Calcium 9.2 Phosphorus 3.7 Total Bilirubin 0.3 Direct Bilirubin 0.1 GGT 177 H AST 19 ALT 26 Alkaline Phosphatase 173 H Troponin I < 0.01 L C-Reactive Protein 22.9 H Total Protein 8.1 Albumin 3.4 Procalcitonin 0.39 TSH 0.135 L
--- NOTE | 2023-12-28 15:10 | P.CCN_ITS ---
Objective Objective Data Details:
--- NOTE | 2023-12-28 15:10 | W.PM.CROSSCO ---
Objective Objective Data Details:
[2023-12-28] MEDS: predniSONE 20 MG TABLET 40 MG PO (15:46)
[2023-12-28] MEDS: diphenhydrAMINE 25 MG CAPSULE PO ×2 (15:47→20:50)
[2023-12-28 15:56] LABS: Free T4 Free Thyroxine* 2.47 ng/dL (0.70-1.85)
--- NOTE | 2023-12-28 18:44 | PC.NURSE ---
End of Shift: Patient alert and oriented x4. Indep. in Rm, on RA, ambulates to BR. Patient's IV in right AC patent. Patient tolerating a reg. diet. rates pain 6-7/10 PRN Dilaudid administered w/relief, VSS, Denies N/V/SOB. Patient's open area on chin will be cleaned with Vashe, packed with Aquacel and covered with non-adhesive dressing (use face mask to keep in place instead of tape per MD Calix) every other day. BG 248/313/367 Novolog sliding scale used. see eMAR.
[2023-12-28] MEDS: ENOXAPARIN 30 MG/0.3ML INJ SUBCUT (20:50)
[2023-12-29] MEDS: HYDROmorphone 0.5 mg/0.5 ml inj IVP ×5 (01:19→22:53)
[2023-12-29 03:05] VITALS: PULSE 75; RESP 16; O2SAT 96
[2023-12-29] MEDS: PIPERACILLIN/TAZOBACTAM 3.375 GM in 0.9 % SODIUM CHLORIDE Mini-bag 100 ML IVPB ×4 (04:55→22:54)
--- NOTE | 2023-12-29 06:12 | PC.NURSE ---
End of shift [id number]: A&O. VSS w/ sats >90% on RA. Pt sleepy throughout shift. Rating pain in chin /10. See eMAR for intervention. Up at alonzo in room. Dressing to chin dry and intact.??
[2023-12-29 06:41] LABS: Basophils Percent Auto 0.1 % (0.0-3.0); Hematocrit 30.1 % (37.0-53.0); Hemoglobin* 9.9 gm/dL (13.5-17.5); Immature Granulocytes Pct Auto 0.4 %; Mean Corpuscular HGB Conc 33 gm/dL (32-36); Mean Corpuscular Hemoglobin 28 pg (26-34); Mean Corpuscular Volume 86 fL (80-100); Monocytes Percent Auto 5.4 % (0.0-11.0); Neutrophils Percent Auto 83.1 % (42.0-72.0); Platelet Count* 340 K/uL (140-440); RDW Coefficient of Variation % 13.6 % (11.5-15.5); Red Blood Count 3.51 m/uL (4.30-5.90)
[2023-12-29 06:44] LABS: Slide Review Reflex No
[2023-12-29 06:57] LABS: Albumin* 2.9 g/dL (3.3-5.0); Chloride* 111 mmol/L (96-114)
[2023-12-29 06:58] LABS: Sodium* 138 mmol/L (135-149)
[2023-12-29 07:00] VITALS: BP 151/89; PULSE 92; RESP 16; TEMP 36.7; O2SAT 97
[2023-12-29 07:00] LABS: Bilirubin Total* 0.2 mg/dL (0.1-1.5); Creatinine* 0.9 mg/dL (0.5-1.5); Estimated Glomerular Filt Rate 102 ml/min
[2023-12-29 07:01] LABS: Alanine Aminotransferase* 18 U/L (4-50); Alkaline Phosphatase* 143 U/L (40-150); Anion Gap 0 mEq/L (7-15); Aspartate Amino Transferase* 14 U/L (12-35); Blood Urea Nitrogen* 26 mg/dL (7-30); Calcium* 8.7 mg/dL (8.4-10.6); Carbon Dioxide* 27 mmol/L (20-32); Glucose* 251 mg/dL (60-115)
[2023-12-29 07:04] LABS: C Reactive Protein* 7.9 mg/dL (0.5-1.0)
[2023-12-29] MEDS: INSULIN ASPART 100 UNIT/ML SUBCUT ×4 (08:11→20:47)
[2023-12-29] MEDS: predniSONE 20 MG TABLET 40 MG PO (08:17)
[2023-12-29] MEDS: lisinopriL 5 MG TABLET PO (08:20)
[2023-12-29] MEDS: METOPROLOL TARTRATE 25 MG TABLET 12.5 MG PO ×2 (08:20→20:47)
[2023-12-29] MEDS: OMEPRAZOLE 20 MG CAPSULE DR PO (08:20)
[2023-12-29] MEDS: ASPIRIN 81 MG TABLET EC PO (08:20)
[2023-12-29] MEDS: SODIUM CHLORIDE 0.9 % (FLUSH) 10 ML SYRINGE 5 ML IVF ×2 (08:21→20:48)
[2023-12-29] MEDS: diphenhydrAMINE 25 MG CAPSULE PO ×3 (08:21→20:47)
[2023-12-29] MEDS: ATORVASTATIN CALCIUM 40 MG TABLET PO (08:21)
[2023-12-29 11:00] VITALS: BP 138/87; PULSE 80; RESP 16; TEMP 36.7; O2SAT 96
[2023-12-29 13:00] VITALS: O2SAT 96
[2023-12-29 15:00] VITALS: BP 146/89; PULSE 84; RESP 16; TEMP 36.5; O2SAT 94
--- NOTE | 2023-12-29 17:48 | P.IMPN_ITS ---
Progress Note: A&P Assessment and plan (1) Cellulitis of face: Problem details: see picture from 12/27 as separate chart note appreciate consult with wound clinic. they recommended: Wound Care Treatment plan: -Cleanse with saline or Vashe if able to obtain. -Allow Vashe moistened gauze to remain in depth of wound bed approximately 3-5 minutes to help with bacterial burden. -Utilize one solid strip of aquacel ag. Lay over wound bed, packing inferior end into depth. -Cover with ABD pad/tape -Change dressing every other day. With history of same 05/2022 (MSSA at the time), admitted to [facility] Culture collected, pending. MRSA neg Continue vancomycin and Zosyn as initiated in ED, pharmacy to dose, monitor creatinine Methylprednisolone x 2 doses, PO prednisone for 3 daily doses (lip swelling) + benadryl Pain management as needed - 12/29/23 Unchanged, culture is pending. Gram-positive cocci in Gram-positive cocci 2 seen on preliminary wound culture. MRSA screen is negative, but patient is high risk for MRSA with h/o nursing home time and meth use. Continue zosyn and vanco, await final cultures. Status: Acute (2) Diabetes mellitus type 2, insulin dependent: Problem details: A1c 10.4. (Reports glucose checks typically around 150) Usual home dose Levemir previously 40 units but has not been using for months - starting back at 15 units on 12/27 with SSI support Diabetic diet, glucose checks ACHS, insulin sliding scale - 12/28 glucoses are markedly elevated, 300s to 400s. Increase long-acting insulin. Status: Chronic (3) Crohn's colitis: Problem details: Immunosuppressed Stable, managed with Inflectra infusions, last infusion 12/14/[address] Garcia Status: Chronic (4) Ischemic cardiomyopathy: Status: Chronic (5) Hypertension: Problem details: Restart lisinopril (increased to 5mg from 2.5mg on 12/27) and metoprolol. Ran out and never refilled - 12/28 BP fair control today, creatinine stable Status: Chronic Plan VTE prophylaxis: Low-dose nightly enoxaparin and SCDs. Subjective Date Seen: 12/29/23 Interval history: Binh has no complaints. He thinks the lip swelling is a bit better than yesterday. Pain feels better as well. Exam Narrative: Exam Narrative: General: No acute distress. Awake, alert, oriented. No pallor. No jaundice. Oropharynx: Enlarged lower lip, similar to the picture from yesterday posted by Dr. Calix. Cellulitic region and draining abscess on [place] appears similar to the picture taken by Dr. Chen yesterday. No trismus, able to open mouth wide peer Cardiovascular: Regular rate and rhythm. No murmurs, gallops, or rubs. Respiratory: Clear to auscultation bilaterally. No wheezes or crackles. Abdomen: Bowel sounds present. Soft, nondistended, nontender. Const: Vital Signs, click to edit/add: Vital Signs - 24 hr 12/28/23 19:30 12/28/23 22:37 12/29/23 03:05 Temperature 98.1 F Pulse Rate [Left B rachial] 93 Pulse Rate [Pulse Oximeter] 84 75 Respiratory Rate 18 18 16 Blood Pressure [Le ft Arm] 115/69 116/69 Pulse Oximetry 94 95 96 Oxygen Delivery Me thod Room Air Room Air 12/29/23 07:00 12/29/23 07:00 Temperature 98.1 F Pulse Rate [Left B rachial] Pulse Rate [Pulse Oximeter] 92 92 Respiratory Rate 16 16 Blood Pressure [Le ft Arm] 151/89 H Pulse Oximetry 97 Oxygen Delivery Me thod Room Air Labs Labs: Laboratory Results - last 24 hr 12/29/23 06:02 WBC 13.60 H RBC 3.51 L Hgb 9.9 L Hct 30.1 L MCV 86 MCH 28 MCHC 33 RDW Coeff of Irma 13.6 Plt Count 340 Neut % (Auto) 83.1 H Lymph % (Auto) 11.0 L Stanley % (Auto) 5.4 Eos % (Auto) 0.0 Baso % (Auto) 0.1 Neut # (Auto) 11.30 H Lymph # (Auto) 1.50 Stanley # (Auto) 0.70 Eos # (Auto) 0.00 Baso # (Auto) 0.00 Abs Immat Gran (auto) 0.10 Imm/Tot Granulo (auto) 0.4 Sodium 138 Potassium 4.0 Chloride 111 Carbon Dioxide 27 Anion Gap 0 L BUN 26 Creatinine 0.9 Estimated Creat Clear 101.10 Estimated GFR 102 Glucose 251 H Calcium 8.7 Total Bilirubin 0.2 AST 14 ALT 18 Alkaline Phosphatase 143 C-Reactive Protein 7.9 H Total Protein 7.0 Albumin 2.9 L
--- NOTE | 2023-12-29 18:51 | PC.NURSE ---
End of shift: patient is pleasant and cooperative. patient alert and oriented. Dressing cleaned w/vashe and ABD changed. Aquacell to be changed 12/30/23. Patient's IV removed from right AC and replaced. New IV placed in left FA. Patient tolerating a reg. diet. Sliding scale given for elevated BG. MD aware. Patient on prednisone. Patient on RA, ambulating indep. to BR. encouraged to walk hallways but naps more than one hour.
[2023-12-29 19:30] VITALS: BP 143/87; PULSE 82; RESP 18; TEMP 36.9; O2SAT 95
[2023-12-29] MEDS: ENOXAPARIN 30 MG/0.3ML INJ 40 MG SUBCUT (20:51)
[2023-12-30] VITALS (7 sets, daily range): BP systolic 130–149; BP diastolic 74–97; PULSE 65–77; RESP 18; TEMP 36.4–36.8; O2SAT 94–98
[2023-12-30] MEDS: HYDROmorphone 0.5 mg/0.5 ml inj IVP ×2 (03:30→05:41)
[2023-12-30] MEDS: diphenhydrAMINE 25 MG CAPSULE PO ×4 (03:30→20:52)
[2023-12-30] MEDS: PIPERACILLIN/TAZOBACTAM 3.375 GM in 0.9 % SODIUM CHLORIDE Mini-bag 100 ML IVPB (04:48)
--- NOTE | 2023-12-30 06:48 | PC.NURSE ---
End of shift [id number]: A&O. VSS w/ sats >90% on RA. Afebrile. Rating pain in chin 6-03/26. See eMAR for interventions. ABD on chin changed x1 due to drainage.?Dressing to chin now dry and intact.?Up at alonzo in room. ? ?
[2023-12-30] MEDS: lisinopriL 5 MG TABLET PO (09:32)
[2023-12-30] MEDS: OMEPRAZOLE 20 MG CAPSULE DR PO (09:35)
[2023-12-30] MEDS: ASPIRIN 81 MG TABLET EC PO (09:35)
[2023-12-30] MEDS: ATORVASTATIN CALCIUM 40 MG TABLET PO (09:35)
[2023-12-30] MEDS: METOPROLOL TARTRATE 25 MG TABLET 12.5 MG PO ×2 (09:35→20:52)
[2023-12-30] MEDS: SODIUM CHLORIDE 0.9 % (FLUSH) 10 ML SYRINGE 5 ML IVF ×2 (09:36→20:52)
[2023-12-30] MEDS: ACETAMINOPHEN 325 MG TABLET PO ×2 (09:40→21:02)
[2023-12-30] MEDS: predniSONE 20 MG TABLET 40 MG PO (09:47)
[2023-12-30] MEDS: CEFAZOLIN 1 GM in 0.9 % SODIUM CHLORIDE Mini-bag 100 ML IVPB ×2 (09:47→17:50)
[2023-12-30] MEDS: INSULIN ASPART 100 UNIT/ML SUBCUT ×3 (12:25→20:53)
--- NOTE | 2023-12-30 12:49 | P.IMPN_ITS ---
Progress Note: A&P Assessment and plan (1) Cellulitis of face: Problem details: see picture from 12/27 as separate chart note appreciate consult with wound clinic. they recommended: Wound Care Treatment plan: -Cleanse with saline or Vashe if able to obtain. -Allow Vashe moistened gauze to remain in depth of wound bed approximately 3-5 minutes to help with bacterial burden. -Utilize one solid strip of aquacel ag. Lay over wound bed, packing inferior end into depth. -Cover with ABD pad/tape -Change dressing every other day. With history of same 05/2022 (MSSA at the time), admitted to [facility] Culture collected, pending. MRSA neg Continue vancomycin and Zosyn as initiated in ED, pharmacy to dose, monitor creatinine Methylprednisolone x 2 doses, PO prednisone for 3 daily doses (lip swelling) + benadryl Pain management as needed - 12/29/23 Unchanged, culture is pending. Gram-positive cocci in Gram-positive cocci 2 seen on preliminary wound culture. MRSA screen is negative, but patient is high risk for MRSA with h/o [facility] time and meth use. Continue zosyn and vanco, await final cultures. - 12/29 some areas of improvement, but I am concerned about lip drainage. Cx grew out 2 different MSSAs. Transition to [facility], recheck labs in the morning. Ask wound care to see. May need ENT to drain lip/debride. Status: Acute (2) Diabetes mellitus type 2, insulin dependent: Problem details: A1c 10.4. (Reports glucose checks typically around 150) Usual home dose Levemir previously 40 units but has not been using for months - starting back at 15 units on 12/27 with SSI support Diabetic diet, glucose checks ACHS, insulin sliding scale - 12/28 glucoses are markedly elevated, 300s to 400s. Increase long-acting insulin. - 12/29 improved glucose. Continue higher LA insulin plus ISS. Status: Chronic (3) Crohn's colitis: Problem details: Immunosuppressed Stable, managed with Inflectra infusions, last infusion 12/14/[address] Garcia Status: Chronic (4) Ischemic cardiomyopathy: Status: Chronic (5) Hypertension: Problem details: Restart lisinopril (increased to 5mg from 2.5mg on 12/27) and metoprolol. Ran out and never refilled - 12/28 BP fair control today, creatinine stable Status: Chronic Plan VTE prophylaxis: Low-dose nightly enoxaparin and SCDs. Subjective Time Seen by Provider: 09:06 Date Seen: 12/30/23 Interval history: Akira feels a bit better today, notices the lip swelling has gone down a bit, but also notes it is now draining from the inside of hip lip. Exam Narrative: Exam Narrative: General: No acute distress. Awake, alert, oriented. No pallor. No jaundice. Oropharynx: Enlarged lower lip, slightly improved from yesterday, less red, but tight with some drainage from a small ulcer inside the lip. Cellulitic region and draining abscess on chin appear similar, less red, some granulation tissue now present. No trismus, able to open mouth wide. Cardiovascular: Regular rate and rhythm. No murmurs, gallops, or rubs. Respiratory: Clear to auscultation bilaterally. No wheezes or crackles. Abdomen: Bowel sounds present. Soft, nondistended, nontender. Const: Vital Signs, click to edit/add: Vital Signs - 24 hr 12/29/23 13:00 12/29/23 15:00 12/29/23 15:00 Temperature 97.7 F Pulse Rate [Left B rachial] Pulse Rate [Pulse Oximeter] 84 84 Respiratory Rate 16 16 Blood Pressure [Le ft Arm] 146/89 H Pulse Oximetry 96 94 Oxygen Delivery Me thod Room Air 12/29/23 19:30 12/30/23 00:24 12/30/23 04:37 Temperature 98.4 F 98.2 F Pulse Rate [Left B rachial] Pulse Rate [Pulse Oximeter] 82 70 65 Respiratory Rate 18 18 18 Blood Pressure [Le ft Arm] 143/87 H 130/74 146/97 H Pulse Oximetry 95 94 97 Oxygen Delivery Ma thod Room Air Room Air Room Air 12/30/23 07:00 12/30/23 07:00 12/30/23 11:00 Temperature 98.1 F 98.1 F Pulse Rate [Left B rachial] 74 Pulse Rate [Pulse Oximeter] 77 77 74 Respiratory Rate 18 18 18 Blood Pressure [Le ft Arm] 146/91 H 144/82 H Pulse Oximetry 97 94 Oxygen Delivery Ma thod Room Air Room Air
--- NOTE | 2023-12-30 19:28 | PC.NURSE ---
End of shift: patient is pleasant and cooperative. patient alert and oriented. Dressing changed, Aquacel and new ABD applied, wound cleaned with Vashe. Patient's IV SL in left FA. Patient tolerating a reg. diet. Sliding scale given for elevated BG. MD aware. Patient on prednisone. Patient on RA, ambulating indep. to BR. Patient showered, clothes changed and room cleaned with bleach wipes. patient up to chair for meals today.
[2023-12-30] MEDS: ENOXAPARIN 30 MG/0.3ML INJ 40 MG SUBCUT (20:53)
[2023-12-31] VITALS (8 sets, daily range): BP systolic 125–160; BP diastolic 83–105; PULSE 66–85; RESP 16–20; TEMP 36.1–36.6; O2SAT 95–98; BMI 25.4
[2023-12-31] MEDS: CEFAZOLIN 1 GM in 0.9 % SODIUM CHLORIDE Mini-bag 100 ML IVPB ×3 (01:15→17:55)
--- NOTE | 2023-12-31 06:13 | PC.NURSE ---
End of shift [id number]: A&O. VSS w/ sats >90% on RA. Afebrile. Rating pain in chin 5-6/10. PRN Tylenol given with stated relief. Dressing on chin c/d/i. Up at [place] in room.?
[2023-12-31] MEDS: HYDROmorphone 0.5 mg/0.5 ml inj IVP ×3 (09:16→21:15)
[2023-12-31] MEDS: SODIUM CHLORIDE 0.9 % (FLUSH) 10 ML SYRINGE 5 ML IVF ×2 (09:16→21:17)
[2023-12-31] MEDS: INSULIN ASPART 100 UNIT/ML SUBCUT ×4 (09:21→21:17)
[2023-12-31] MEDS: ATORVASTATIN CALCIUM 40 MG TABLET PO (09:22)
[2023-12-31] MEDS: OMEPRAZOLE 20 MG CAPSULE DR PO (09:22)
[2023-12-31] MEDS: METOPROLOL TARTRATE 25 MG TABLET 12.5 MG PO ×2 (09:22→21:15)
[2023-12-31] MEDS: diphenhydrAMINE 25 MG CAPSULE PO ×3 (09:23→21:15)
[2023-12-31] MEDS: ASPIRIN 81 MG TABLET EC PO (09:23)
[2023-12-31] MEDS: lisinopriL 5 MG TABLET PO (09:23)
--- NOTE | 2023-12-31 10:40 | PM.IMPN1 ---
Progress Note: A&P Assessment and plan (1) Cellulitis of face: Problem details: see picture from 12/27 as separate chart note -MSSA growing. MRSA neg -vancomycin and Zosyn changed to Ancef -12/30 wound care consulted in f/u; opened tunnels and debrided. packed with VASHE and recommended peridex. Status: Acute (2) Diabetes mellitus type 2, insulin dependent: Problem details: A1c 10.4. (Reports glucose checks typically around 150) Usual home dose Levemir previously 40 units but has not been using for months - starting back at 15 units on 12/27 with SSI support Diabetic diet, glucose checks ACHS, insulin sliding scale - 12/28 glucoses are markedly elevated, 300s to 400s. Increase long-acting insulin. - 12/29 improved glucose. Continue higher LA insulin plus ISS. Status: Chronic (3) Crohn's colitis: Problem details: Immunosuppressed Stable, managed with Inflectra infusions, last infusion 12/14/[address] Garcia Status: Chronic (4) Ischemic cardiomyopathy: Status: Chronic (5) Hypertension: Problem details: Restart lisinopril (increased to 5mg from 2.5mg on 12/27) and metoprolol. Ran out and never refilled - 12/28 BP fair control today, creatinine stable Status: Chronic Subjective Date Seen: 12/31/23 Interval history: Daily Progress Note - Hospital Medicine Day #5 CC: facial cellulitis with tunnel/abscess. MSSA. ANCEF OVERNIGHT UPDATES FROM STAFF & MED, LAB, IMAGING UPDATES afebrile. vitally stable. WBC count 19.9 --> 17.9 -->13.6 hgb 13.4 -->11.3 -->9.9 chemistries reviewed. stable/improved. CRP uptrending 7.8 --> 22.9 --> 7.9 A1C 10.4 - BLOOD SUGARS 500-248 NO MRSA MSSA - two species growing - ABX narrowed to ANCEF BC NGTD Objective: disshelved; poor hygiene and self care evident Vitals: see above Lungs: Clear. Cardiac: S1S2. ENT: large swollen lower lip - no significant change from admission but now with white pustules identified inside lip. chin: continued drainage and fluctuant tissue. mild lymphadenopathy palpable can open mouth widely, no airway impact evident Disposition/Potential discharge - Likely to return to previous living situation. Exam Const: Vital Signs, click to edit/add: Vital Signs - 24 hr 12/30/23 11:00 12/30/23 13:00 12/30/23 15:00 Temperature 98.1 F Pulse Rate [Left B rachial] 74 Pulse Rate [Pulse Oximeter] 74 73 Respiratory Rate 18 18 Blood Pressure [Le ft Arm] 144/82 H Pulse Oximetry 94 98 Oxygen Delivery Me thod Room Air 12/30/23 15:00 12/30/23 20:50 12/31/23 01:17 Temperature 97.7 F 97.5 F L 97.1 F L Pulse Rate [Left B rachial] Pulse Rate [Pulse Oximeter] 73 68 82 Respiratory Rate 18 18 16 Blood Pressure [Le ft Arm] 149/97 H 145/94 H 135/91 H Pulse Oximetry 98 94 97 Oxygen Delivery Me thod Room Air Room Air Room Air 12/31/23 03:21 Temperature Pulse Rate [Left B rachial] Pulse Rate [Pulse Oximeter] Respiratory Rate 18 Blood Pressure [Le ft Arm] Pulse Oximetry Oxygen Delivery Me thod
--- NOTE | 2023-12-31 10:56 | P.IMCN_ITS ---
Date of Consult Consult date: 12/31/23 Requesting Physician: Hospitalist Primary Care Provider: Not a Local Provider Consult Narrative Reason for consult: wound- increased drainage and visiable pustules. Narrative: Akira Merchant is a 53 year old male past medical history significant for poorly controlled diabetes mellitus type 2- insulin dependent, hypertension, hyperlipidemia, CAD, ischemic cardiomyopathy, Crohn's [id number]-[id number] infusion 12/11/23, GERD, tobacco dependence. Recently released from 90-day detention sentence. Patient reports onset of facial swelling and pain of the chin approximately 1.5 week ago, he was admitted via ED after patient presented 5 days ago with leukocytosis and facial cellulitis. Patient denies difficulty swallowing. ED CT Impression: Severe chin, submandibular, and right cheek cellulitis. No drainable abscess. No extension to involve the floor of the mouth or the deep parapharyngeal spaces.? Day #5 CC: facial cellulitis with tunnel/abscess. MSSA. ANCEF OVERNIGHT UPDATES FROM STAFF & MED, LAB, IMAGING UPDATES afebrile. vitally stable. WBC count 19.9 --> 17.9 -->13.6 hgb 13.4 -->11.3 -->9.9 chemistries. stable/improved. CRP uptrending 7.8 --> 22.9 --> 7.9 A1C 10.4 - BLOOD SUGARS 500-248 NO MRSA MSSA - two species growing - ABX narrowed to ANCEF BC NGTD Review of Systems Status of ROS: Reports: 6 or more systems reviewed and unremarkable except as noted in History and below [facility] Medical History (Updated 01/03/24 @ 10:42 by Mckenna Denton COOK RO[employer] SUPERVISOR) Facial abscess ?L02.01 - Cutaneous abscess of face (ICD-10) Methamphetamine abuse ?F15.10 - Other stimulant abuse, uncomplicated (ICD-10) Tobacco dependence ?F17.200 - Nicotine dependence, unspecified, uncomplicated (ICD-10) Renal insufficiency ?N28.9 - Disorder of kidney and ureter, unspecified (ICD-10) Crohn's colitis ?K50.10 - Crohn's disease of large intestine without complications (ICD-10) Diabetes mellitus type 2, insulin dependent ?E11.9 - Type 2 diabetes mellitus without complications (ICD-10) ?Z79.4 - intermediate manager (current) use of insulin (ICD-10) Hyperlipidemia ?E78.5 - Hyperlipidemia, unspecified (ICD-10) Ischemic cardiomyopathy ?I25.5 - Ischemic cardiomyopathy (ICD-10) CAD (coronary artery disease) ?I25.10 - Atherosclerotic heart disease of [place] coronary artery without angina pectoris (ICD-10) Hypertension ?I10 - Essential (primary) hypertension (ICD-10) Crohn's disease ?K50.90 - Crohn's disease, unspecified, without complications (ICD-10) Surgical History Presence of coronary angioplasty implant and graft ?Z95.5 - Presence of coronary angioplasty implant and graft (ICD-10) Social History What is your current living situation?: I presently have a place to live Problems where you live: no known problems Problems where you live details: pt [facility] in [facility] In the past 12 months, utilities in danger of being shut off: no In past 12 months, lack of transportation kept you from medical appts, meetings, work, or getting things needed for daily living: no In the past 12 mos, have been you worried that your food would run out before you had money to buy more?: never true In the past 12 mos, the food you bought just didn't last and you didn't have money to buy more?: never true Highest level of school completed/degree received: 11th grade Smoking Status: Current every day smoker What tobacco products do you use: cigarettes Years smoked: 15 Do you use any of these nicotine containing products: None Second hand tobacco smoke exposure: Yes How often do you have a drink containing alcohol: never How often do you have six or more drinks on one occasion: Never AUDIT-C Alcohol total score: 0 Non-prescribed substance use: denies use Caffeine: Yes How often does anyone, including family, friends and others, physically hurt you : never How often does anyone, including family, friends and others, insult or talk down to you: never How often does anyone, including family, friends and others, threaten you with harm: never How often does anyone, including family, friends and others, scream or curse at you: never service: No Meds Home Medications and Allergies Home Medications Medication Instructions Recorded Confirmed Type acetaminophen 500 mg tablet mg PO 12/27/23 History aspirin 81 mg capsule 81 mg PO DAILY 12/27/23 12/27/23 History atorvastatin 40 mg tablet 40 mg PO DAILY 12/27/23 12/27/23 History diphenhydramine HCl 25 mg tablet 25 mg PO QPM 12/27/23 12/27/23 History insulin aspart U-100 1 - 12 unit subcut TIDWMEAL 12/27/23 12/27/23 History insulin detemir U-100 40 unit subcut HS 12/27/23 12/27/23 History lisinopril 2.5 mg tablet 2.5 mg PO DAILY 12/27/23 12/27/23 History metoprolol tartrate 25 mg tablet 12.5 mg PO BID 12/27/23 12/27/23 History pantoprazole 40 mg granules 40 mg PO DAILY 12/27/23 12/27/23 History delayed-release for susp in packet Allergies Allergy/AdvReac Type Severity Reaction Status Date / Time oxycodone [From OxyContin] Allergy Intermediate Verified 12/27/23 12:37 Exam Narrative: Exam Narrative: General: NAD, alert. Pulmonary: Symmetrical rise, unlabored breathing. Airway patent. Mouth: oral mucosa of lower lip with multiple pustules that were lanced and irrigated. Wounds: mentalis wound measuring [id number] with 11-7 o'clock undermining, measuring 3cm. wound assessment-moderate purulent exudate, Adherent slough, fibrin, necrotic tissue. Sub mandibular wound-moderate purulent exudate, Adherent slough, fibrin, necrotic tissue, measuring [id number] with tunneling of 1.5cm at 2 o'clock. Neuro: patient able to elevate, darlyn, and assist with protruding lower lip symmetrically and independently. Const: Vital Signs, click to edit/add: Vital Signs - 24 hr 12/30/23 11:00 12/30/23 13:00 12/30/23 15:00 Temperature 98.1 F Pulse Rate [Left B rachial] 74 Pulse Rate [Pulse Oximeter] 74 73 Respiratory Rate 18 18 Blood Pressure [Le ft Arm] 144/82 H Pulse Oximetry 94 98 Oxygen Delivery Me thod Room Air 12/30/23 15:00 12/30/23 20:50 12/31/23 01:17 Temperature 97.7 F 97.5 F L 97.1 F L Pulse Rate [Left B rachial] Pulse Rate [Pulse Oximeter] 73 68 82 Respiratory Rate 18 18 16 Blood Pressure [Le ft Arm] 149/97 H 145/94 H 135/91 H Pulse Oximetry 98 94 97 Oxygen Delivery Me thod Room Air Room Air Room Air 12/31/23 03:21 Temperature Pulse Rate [Left B rachial] Pulse Rate [Pulse Oximeter] Respiratory Rate 18 Blood Pressure [Le ft Arm] Pulse Oximetry Oxygen Delivery Me thod Documenting provider has reviewed patient's vital signs: yes Assessment and Plan Assessment and plan (1) Facial abscess: Status: Acute (2) Lip abscess: Status: Acute (3) Cellulitis of face: Problem comment: -MSSA -MRSA neg -vancomycin and Zosyn changed to Ancef changed to Unasyn -12/30 wound care consulted in f/u; opened tunnels and debrided. packed with VASHE and recommended peridex. -12/31 appreciate wound care consult - ENT to take to surgery afternoon of 12/31 -01/01 ID consult completed. Recommended: Unasyn until discharge, 14 days of BID Augmentin from date of surgery. Peridex swapped for warm salt water swish/spit Status: Acute (4) Diabetes mellitus type 2, insulin dependent: Problem comment: A1c 10.4. (Reports glucose checks typically around 150) Usual home dose Levemir previously 40 units but has not been using for months - starting back at 15 units on 12/27 with SSI support Diabetic diet, glucose checks ACHS, insulin sliding scale - 12/28 glucoses are markedly elevated, 300s to 400s. Increase long-acting insulin. - 12/29 improved glucose. Continue higher LA insulin plus ISS. - 01/02 splitting levemir to 15units BID Status: Chronic Plan patient consent obtained. I&D down to healthy bleeding tissue performed at bedside of oral mucosa pustules/ abscess -d/t size of area segmented I&D performed. additional procedures: debridement of chin wounds. Chin wounds probe deep, to musculature, bone not visualized. wound irrigated with normal saline. Chin wounds packed with vashe soaked quarter-inch packing gauze, secured with mepitel/abd/and chin mask. IV antibiotics will continued to be managed by hospitalist team. updated wound culture collected. Wound services will see patient again morning of 01/01/24. Wound Care Dressing Orders: * pack anterior mentalis and right submandibular wounds with vashe soaked packing gauze BID for 12/31/23 & 01/01/24. If improved will plan to transition to [facility] thereafter. Cover with abd and mask to secure to chin. * inferior labial oral mucosa lesions lanced to allow for drainage: 7 days of Chlorhexidine gluconate oral rinse solution, 2-3x daily swish for 30 seconds and spit out. If wounds not improved over next 24hr patient may benefit from OR surgical debridement. Discussed with patient importance of tight blood sugar control to assist in wound healing. Total Time Spent Total Time Spent: 60 Procedures I/D Type: complex wound Site: lip (inferior- labial oral mucosa) Sedation/analgesia: other Technique: incised with #11 blade Irrigation: Yes Packing used?: none Additional Procedures Additional Procedure Details: consent obtained. Patient given IV Dilaudid for pain management. Patient tolerated procedures. debridement of anterior chin wound with #4 curette: down to muscle, healthy bleeding muscle exposed. debridement of right sub mandibular wound with #4 curette: down to healthy subcutaneous
--- NOTE | 2023-12-31 14:21 | PC.NURSE ---
End of Shift Note: Patient had a busy morning. Tyrel SNYDER from the wound center was here and debrided his wounds more and irrigated at bedside. Have applied a warm pack to see if that would give him some pain relief and to hopefully help his wounds drain more. this afternoon his lip maybe slightly less swollen than it was this am. the mouthwash has been ordered by pharmacy and should arrive tomorrow. Have had him trying to swish with warm salt water also to see if this will help drain wounds. He is currently trying to take a nap. Will continue to monitor
[2023-12-31] MEDS: ACETAMINOPHEN 325 MG TABLET PO (16:23)
[2024-01-01] VITALS (14 sets, daily range): BP systolic 111–153; BP diastolic 80–103; PULSE 75–96; RESP 12–20; TEMP 36.2–36.9; O2SAT 93–99
[2024-01-01] MEDS: CEFAZOLIN 1 GM in 0.9 % SODIUM CHLORIDE Mini-bag 100 ML IVPB ×2 (01:07→08:48)
[2024-01-01] MEDS: diphenhydrAMINE 25 MG CAPSULE PO ×3 (03:20→21:42)
--- NOTE | 2024-01-01 06:06 | PC.NURSE ---
End of shift : Pt is A&O x4, afebrile and VSS. He ambulates independently in his room. Pt had a BM evening of 12/30. PIV in left FA was reddened & painful so new PIV placed in left AC & has been asymptomatic. Dressing change to pt?s face done at & premedicated with PRN Dilaudid @ 2114. Pt tolerated dressing change well. Dressing consists of: Vashe soaked Iodoform packing strips > ABD pad > Kerlix gauze wrap. Lower lip and right cheek continues to be swollen r/t cellulitis. Pt denies having pain outside of dressing changes, nausea or SOB. Blood sugar @ was 342; pt received 16u SS Novolog and scheduled 20u Levemir per NOV.?
[2024-01-01] MEDS: HYDROmorphone 0.5 mg/0.5 ml inj IVP (08:14)
[2024-01-01] MEDS: SODIUM CHLORIDE 0.9 % (FLUSH) 10 ML SYRINGE 5 ML IVF ×2 (08:15→21:44)
[2024-01-01] MEDS: ATORVASTATIN CALCIUM 40 MG TABLET PO (08:47)
[2024-01-01] MEDS: ASPIRIN 81 MG TABLET EC PO (08:47)
[2024-01-01] MEDS: OMEPRAZOLE 20 MG CAPSULE DR PO (08:48)
[2024-01-01] MEDS: METOPROLOL TARTRATE 25 MG TABLET 12.5 MG PO ×2 (08:48→21:42)
[2024-01-01] MEDS: lisinopriL 5 MG TABLET PO (08:48)
[2024-01-01] MEDS: CHLORHEXIDINE GLUCONATE 473 ML MOUTHWASH 15 ML SWISH/SPIT ×2 (09:12→21:39)
--- NOTE | 2024-01-01 09:42 | PM.WSPN ---
Progress Note: A&P Assessment and plan (1) Facial abscess: Status: Acute (2) Lip abscess: Status: Acute (3) Cellulitis of face: Problem details: -MSSA -MRSA neg -vancomycin and Zosyn changed to Ancef changed to Unasyn -12/30 wound care consulted in f/u; opened tunnels and debrided. packed with VASHE and recommended peridex. -12/31 appreciate wound care consult - ENT to take to surgery afternoon of 12/31 -01/01 ID consult completed. Recommended: Unasyn until discharge, 14 days of BID Augmentin from date of surgery. Peridex swapped for warm salt water swish/spit Status: Acute Plan wounds cleansed and repacked. Due to complexity of wound and minimal improvement from yesterday. agree with ENT taking patient to OR for wound exploration and debridement. Appreciate hospitalist in their coordination efforts with multiple services. Wound Services will sign off on patient at this time, deferring to ENT management of patients wounds. Time Spent With Patient Total time spent: 45 Subjective Time Seen by Provider: 08:10 Date Seen: 01/01/24 Interval history: Patient and bedside nursing report wounds improved-edema slightly improved, patient reports pain and pressure improved. Waiting for chlorhexidine mouth wash to arrive, patient has been completing salt water rinses since yesterday. Draining slight decreased. Patient remains afebrile. Exam Narrative: Exam Narrative: General: NAD, ALert Wounds: Lip edema persist, slightly improved from yesterday. Pustules reformed to inner lip-irrigated at bedside. Chin wounds continue to track deep. Pulmonary:unlabored breathing. speaking in full sentences. Const: Vital Signs, click to edit/add: Vital Signs - 24 hr 12/31/23 11:00 12/31/23 12:02 12/31/23 15:00 Temperature 97.0 F L Pulse Rate [Left B rachial] 74 Pulse Rate [Pulse Oximeter] 66 66 Respiratory Rate 20 20 Blood Pressure [Le ft Arm] 147/102 H Blood Pressure [Ri ght Arm] Pulse Oximetry 98 98 Oxygen Delivery Me thod Room Air 12/31/23 15:00 12/31/23 19:00 12/31/23 23:00 Temperature 97.3 F L 97.6 F Pulse Rate [Left B rachial] Pulse Rate [Pulse Oximeter] 81 77 68 Respiratory Rate 20 16 18 Blood Pressure [Le ft Arm] 127/94 H Blood Pressure [Ri ght Arm] 136/89 Pulse Oximetry 98 95 Oxygen Delivery Me thod Room Air Room Air 12/31/23 23:00 01/01/24 03:00 01/01/24 07:00 Temperature 97.8 F 97.7 F 97.5 F L Pulse Rate [Left B rachial] Pulse Rate [Pulse Oximeter] 68 79 91 Respiratory Rate 18 16 20 Blood Pressure [Le ft Arm] Blood Pressure [Ri ght Arm] 125/83 126/97 H 138/90 H Pulse Oximetry 96 95 99 Oxygen Delivery Me thod Room Air Room Air Room Air 01/01/24 07:00 Temperature Pulse Rate [Left B rachial] Pulse Rate [Pulse Oximeter] 91 Respiratory Rate 20 Blood Pressure [Le ft Arm] Blood Pressure [Ri ght Arm] Pulse Oximetry Oxygen Delivery Me thod Documenting provider has reviewed patient's vital signs: yes
--- NOTE | 2024-01-01 10:13 | PM.IMPN1 ---
Progress Note: A&P Assessment and plan (1) Cellulitis of face: Problem details: see picture from 12/27 as separate chart note -MSSA growing. MRSA neg -vancomycin and Zosyn changed to Ancef -12/30 wound care consulted in f/u; opened tunnels and debrided. packed with VASHE and recommended peridex. -12/31 appreciate wound care consult - ENT to take to surgery afternoon of 12/31 Status: Acute (2) Diabetes mellitus type 2, insulin dependent: Problem details: A1c 10.4. (Reports glucose checks typically around 150) Usual home dose Levemir previously 40 units but has not been using for months - starting back at 15 units on 12/27 with SSI support Diabetic diet, glucose checks ACHS, insulin sliding scale - 12/28 glucoses are markedly elevated, 300s to 400s. Increase long-acting insulin. - 12/29 improved glucose. Continue higher LA insulin plus ISS. - 12/30 splitting levemir to 15units BID Status: Chronic (3) Crohn's colitis: Problem details: Immunosuppressed Stable, managed with Inflectra infusions, last infusion 12/14/[address] Garcia Status: Chronic (4) Hyperthyroidism: Problem details: 12/27: TSH suppressed to 0.135, free T4 2.47 -outpatient thyroid u/s and referral necessary; repeat after acute illness Status: Acute (5) Hypertension: Problem details: Restart lisinopril (increased to 5mg from 2.5mg on 12/27) and metoprolol - 12/28 BP fair control today, creatinine stable Status: Chronic (6) Ischemic cardiomyopathy: Status: Chronic Subjective Date Seen: 01/01/24 Interval history: Daily Progress Note - Hospital Medicine Day #6 CC: facial cellulitis with tunnel/abscess. MSSA. ANCEF OVERNIGHT UPDATES FROM STAFF & MED, LAB, IMAGING UPDATES afebrile. vitally stable. WBC count 19.9 --> 17.9 -->13.6 hgb 13.4 -->11.3 -->9.9 chemistries reviewed. stable/improved. CRP uptrending 7.8 --> 22.9 --> 7.9 A1C 10.4 - BLOOD SUGARS 125, 342, 330, 254. NO MRSA MSSA - two species growing - ABX narrowed to ANCEF BC NGTD Objective: disshelved; poor hygiene and self care evident Vitals: see above Lungs: Clear. Cardiac: S1S2. ENT: large swollen lower lip - no significant change from admission but now with white pustules identified inside lip. chin: continued drainage and fluctuant tissue. mild lymphadenopathy palpable can open mouth widely, no airway impact evident Disposition/Potential discharge - Likely to return to previous living situation. Exam Const: Vital Signs, click to edit/add: Vital Signs - 24 hr 12/31/23 11:00 12/31/23 12:02 12/31/23 15:00 Temperature 97.0 F L Pulse Rate [Left B rachial] 74 Pulse Rate [Pulse Oximeter] 66 66 Respiratory Rate 20 20 Blood Pressure [Le ft Arm] 147/102 H Blood Pressure [Ri ght Arm] Pulse Oximetry 98 98 Oxygen Delivery Me thod Room Air 12/31/23 15:00 12/31/23 19:00 12/31/23 23:00 Temperature 97.3 F L 97.6 F Pulse Rate [Left B rachial] Pulse Rate [Pulse Oximeter] 81 77 68 Respiratory Rate 20 16 18 Blood Pressure [Le ft Arm] 127/94 H Blood Pressure [Ri ght Arm] 136/89 Pulse Oximetry 98 95 Oxygen Delivery Me thod Room Air Room Air 12/31/23 23:00 01/01/24 03:00 01/01/24 07:00 Temperature 97.8 F 97.7 F 97.5 F L Pulse Rate [Left B rachial] Pulse Rate [Pulse Oximeter] 68 79 91 Respiratory Rate 18 16 20 Blood Pressure [Le ft Arm] Blood Pressure [Ri ght Arm] 125/83 126/97 H 138/90 H Pulse Oximetry 96 95 99 Oxygen Delivery Me thod Room Air Room Air Room Air 01/01/24 07:00 Temperature Pulse Rate [Left B rachial] Pulse Rate [Pulse Oximeter] 91 Respiratory Rate 20 Blood Pressure [Le ft Arm] Blood Pressure [Ri ght Arm] Pulse Oximetry Oxygen Delivery Me thod
--- NOTE | 2024-01-01 14:41 | PC.NURSE ---
End of Shift Note: Patient has been alert and orientated. He was seen by Mckenna SNYDER in the wound center today. She changed his dressing today. He was able to tolerate this ok did receive a dose of dilaudid to help with pain from this procedure. He was seen by Dr. Calix today and he is going to be going into the OR to hopefully debride his wound more. He is currently npo and awaiting until 1600 to go in for surgery.
--- NOTE | 2024-01-01 15:15 | PC.SOCIAL ---
Discharge planning: [employer] met with pt today to discuss resources and returning home after his hospital stay. Pt stated that he lives with a friend and he feels good about going home after discharge. Social work to follow-up as needed.
--- NOTE | 2024-01-01 15:37 | P.ENTCN_ITS ---
HPI- ENT Consult Date of Consult Date Seen: 01/01/24 Consult date: 01/01/24 Requesting Physician: Other Primary Care Provider: Not a Local Provider Consult Narrative Reason for consult: Lip and submental abscess Narrative: Akira Merchant is a 53 year old male who several days ago developed right chin swelling extended into the submental area and then lip edema as well. Had some sort of drainage procedure from the inferior neck with packing in place. However unfortunately his lip swelling has progressed. See culture results in chart. I was asked to see to consider drainage of lip and submental region PFSH [facility] Medical History Methamphetamine abuse ?F15.10 - Other stimulant abuse, uncomplicated (ICD-10) Tobacco dependence ?F17.200 - Nicotine dependence, unspecified, uncomplicated (ICD-10) Renal insufficiency ?N28.9 - Disorder of kidney and ureter, unspecified (ICD-10) Crohn's colitis ?K50.10 - Crohn's disease of large intestine without complications (ICD-10) Diabetes mellitus type 2, insulin dependent ?E11.9 - Type 2 diabetes mellitus without complications (ICD-10) ?Z79.4 - [facility] (current) use of insulin (ICD-10) Hyperlipidemia ?E78.5 - Hyperlipidemia, unspecified (ICD-10) Ischemic cardiomyopathy ?I25.5 - Ischemic cardiomyopathy (ICD-10) CAD (coronary artery disease) ?I25.10 - Atherosclerotic heart disease of [place] coronary artery without ang nitin pectoris (ICD-10) Hypertension ?I10 - Essential (primary) hypertension (ICD-10) Crohn's disease ?K50.90 - Crohn's disease, unspecified, without complications (ICD-10) Surgical History Presence of coronary angioplasty implant and graft ?Z95.5 - Presence of coronary angioplasty implant and graft (ICD-10) Social History What is your current living situation?: I presently have a place to live Problems where you live: no known problems Problems where you live details: pt lives in [facility] In the past 12 months, utilities in danger of being shut off: no In past 12 months, lack of transportation kept you from medical appts, meetings, work, or getting things needed for daily living: no In the past 12 mos, have been you worried that your food would run out before you had money to buy more?: never true In the past 12 mos, the food you bought just didn't last and you didn't have money to buy more?: never true Highest level of school completed/degree received: 11th grade Smoking Status: Current every day smoker What tobacco products do you use: cigarettes Years smoked: 15 Do you use any of these nicotine containing products: None Second hand tobacco smoke exposure: Yes How often do you have a drink containing alcohol: never How often do you have six or more drinks on one occasion: Never AUDIT-C Alcohol total score: 0 Non-prescribed substance use: denies use Caffeine: Yes How often does anyone, including family, friends and others, physically hurt you : never How often does anyone, including family, friends and others, insult or talk down to you: never How often does anyone, including family, friends and others, threaten you with harm: never How often does anyone, including family, friends and others, scream or curse at you: never service: No Meds Home Medications and Allergies Home Medications Medication Instructions Recorded Confirmed Type acetaminophen 500 mg tablet mg PO 12/27/23 History aspirin 81 mg capsule 81 mg PO DAILY 12/27/23 12/27/23 History atorvastatin 40 mg tablet 40 mg PO DAILY 12/27/23 12/27/23 History diphenhydramine HCl 25 mg tablet 25 mg PO QPM 12/27/23 12/27/23 History insulin aspart U-100 1 - 12 unit subcut TIDWMEAL 12/27/23 12/27/23 History insulin detemir U-100 40 unit subcut HS 12/27/23 12/27/23 History lisinopril 2.5 mg tablet 2.5 mg PO DAILY 12/27/23 12/27/23 History metoprolol tartrate 25 mg tablet 12.5 mg PO BID 12/27/23 12/27/23 History pantoprazole 40 mg granules 40 mg PO DAILY 12/27/23 12/27/23 History delayed-release for susp in packet Allergies Allergy/AdvReac Type Severity Reaction Status Date / Time oxycodone [From OxyContin] Allergy Intermediate Verified 12/27/23 12:37 Exam Narrative: Exam Narrative: General skin neuro respiratory gait peripheral vascular vocal quality skin of head neck are all negative except poor dentition significant swelling lower lip with tight edema and 2 areas of either abrasion or drainage on the inner surface lower lip on either side. He has packing in the submental region small incision was made there and some chin and submental edema mild. No floor mouth edema. Does not appear to extend to mandible. Const: Vital Signs, click to edit/add: Vital Signs - 24 hr 12/31/23 19:00 12/31/23 23:00 12/31/23 23:00 Temperature 97.6 F 97.8 F Pulse Rate [Left B rachial] Pulse Rate [Pulse Oximeter] 77 68 68 Respiratory Rate 16 18 18 Blood Pressure [Ri ght Arm] 136/89 125/83 Pulse Oximetry 95 96 Oxygen Delivery Me thod Room Air Room Air 01/01/24 03:00 01/01/24 07:00 01/01/24 07:00 Temperature 97.7 F 97.5 F L Pulse Rate [Left B rachial] Pulse Rate [Pulse Oximeter] 79 91 91 Respiratory Rate 16 20 20 Blood Pressure [Ri ght Arm] 126/97 H 138/90 H Pulse Oximetry 95 99 Oxygen Delivery Ak thod Room Air Room Air 01/01/24 11:00 01/01/24 13:00 Temperature 97.8 F Pulse Rate [Left B rachial] 80 Pulse Rate [Pulse Oximeter] Respiratory Rate 20 Blood Pressure [Ri ght Arm] 125/81 Pulse Oximetry 96 96 Oxygen Delivery Ak thod Room Air Assessment and Plan Assessment and plan (1) Lip abscess: Status: Acute Plan Lip abscess and submental abscess with incomplete drainage. Reviewed findings with him. I would favor going the operating room to drain the lip and also explore the submental region for for further infection and be sure the packing is adequately placed. He understands there are risks including injury to adjacent structures bleeding recurrence persistence of infection etc..
--- NOTE | 2024-01-01 16:26 | W.PM.ENTPROC ---
Procedure Note Date of procedure: 01/01/24 Procedure: Preoperative diagnosis lower lip abscess, submental space abscess Postoperative diagnosis same Procedure incision drainage of lip abscess with irrigation, incision drainage submental abscess with irrigation and iodoform gauze packing Under general trach anesthesia patient was prepped and draped in usual fashion. The submental and mental iodoform packing was removed. The area of the submental incision was explored with a mosquito forceps connecting several small pockets of abscess and a moderate amount of purulent material was removed. This was then connected to the mental drainage incision. The entire area was copiously irrigated the mental incision was explored as well and then iodoform gauze placed connected through to the mental and submental space. The lip was incised inferiorly in the midline in a lag in a horizontal aspect of the incision. This was then explored with mosquito forceps finding several small pus pockets. This was irrigated I did not place at a form gauze here. The patient procedure well was taken recovery in satisfactory condition blood loss during procedure less than 20 mL. I did not obtain cultures as they have already been obtained and patient is on antibiotics. Surgeon: Suad Calix MD
--- NOTE | 2024-01-01 16:34 | W.ANESCHARGE ---
Anesthesia Charges Start Date/Time Anesthesia Start Date: 01/01/24 Anesthesia Start Time: 16:00 Stop Date/Time Anesthesia Stop Date: 01/01/24 Anesthesia Stop Time: 16:39
[2024-01-01] MEDS: fentaNYL 100 MCG/2 ML inj 50 MCG IVP ×2 (16:35→16:42)
--- NOTE | 2024-01-01 16:42 | PM.EN ---
Chart Event Note Date Seen: 01/01/24 Chart Event Note: I spoke with Dr. Guillermo Hernandez, ENT, who performed an I&D today for this patient's lip and submental abscesses. I will stop cefazolin and initiate ampicillin/sulbactam 3 g IV q 6 hours to extent the spectrum of coverage to include oral arnav, given that seemingly the cefazolin alone was not adequate to mitigate the infectious process.
--- NOTE | 2024-01-01 16:47 | W.ANESCHARGE ---
Anesthesia Charges Start Date/Time Anesthesia Start Date: 01/01/24 Anesthesia Start Time: 16:00 Stop Date/Time Anesthesia Stop Date: 01/01/24 Anesthesia Stop Time: 16:39
[2024-01-01] MEDS: LACTATED RINGERS 1000 ML 1,000 ML 100 ML IV (16:56)
[2024-01-01] MEDS: AMPICILLIN/SULBACTAM 3 GM in 0.9 % SODIUM CHLORIDE Mini-bag 100 ML IVPB ×2 (17:34→23:00)
[2024-01-01] MEDS: HYDROmorphone 2 MG TABLET PO (19:43)
[2024-01-01] MEDS: INSULIN ASPART 100 UNIT/ML SUBCUT (21:39)
[2024-01-01] MEDS: ENOXAPARIN 40 MG/0.4 ML INJ SUBCUT (21:39)
[2024-01-01] MEDS: IBUPROFEN 600 MG TABLET PO (21:56)
--- NOTE | 2024-01-01 22:44 | PC.NURSE ---
End of Shift: Pt pleasant and cooperative throughout shift. Remained AO and continent of bowels. No BM, one void. Pt went to OR for abscess drain, tolerated well. Pain remains at a 6 after one dose of dilauded and one dose of ibuprofen. Ice pack to op site. Pt independent in room. Diet advanced to regular, tolerating well. Blood sugar 381 at 2039, insulin administered.
[2024-01-02] VITALS (7 sets, daily range): BP systolic 97–125; BP diastolic 61–76; PULSE 69–95; RESP 14–18; TEMP 36.4–36.7; O2SAT 93–98
[2024-01-02] MEDS: HYDROmorphone 2 MG TABLET PO ×4 (02:28→23:42)
[2024-01-02] MEDS: diphenhydrAMINE 25 MG CAPSULE PO ×4 (02:30→20:45)
[2024-01-02] MEDS: AMPICILLIN/SULBACTAM 3 GM in 0.9 % SODIUM CHLORIDE Mini-bag 100 ML IVPB ×4 (05:25→23:03)
[2024-01-02] MEDS: SODIUM CHLORIDE 0.9 % (FLUSH) 10 ML SYRINGE 5 ML IVF ×3 (05:25→20:46)
[2024-01-02 06:29] LABS: Hematocrit 36.4 % (37.0-53.0); Mean Corpuscular HGB Conc 33 gm/dL (32-36); Mean Corpuscular Hemoglobin 28 pg (26-34); Mean Corpuscular Volume 85 fL (80-100); Platelet Count* 446 K/uL (140-440); Red Blood Count 4.27 m/uL (4.30-5.90); White Blood Count* 15.58 K/uL (4.50-11.00)
[2024-01-02 06:31] LABS: Slide Review Reflex No
[2024-01-02] MEDS: IBUPROFEN 600 MG TABLET PO (06:34)
[2024-01-02 06:40] LABS: Chloride* 108 mmol/L (96-114); Potassium* 4.1 mmol/L (3.6-5.1); Sodium* 137 mmol/L (135-149)
[2024-01-02 06:43] LABS: Creatinine* 0.8 mg/dL (0.5-1.5); Est. Creatinine Clearance* 113.73; Estimated Glomerular Filt Rate 106 ml/min
[2024-01-02 06:44] LABS: Anion Gap 4 mEq/L (7-15); Blood Urea Nitrogen* 29 mg/dL (7-30); Calcium* 8.6 mg/dL (8.4-10.6); Carbon Dioxide* 25 mmol/L (20-32); Glucose* 190 mg/dL (60-115)
[2024-01-02 06:47] LABS: C Reactive Protein* 1.7 mg/dL (0.5-1.0)
--- NOTE | 2024-01-02 06:48 | PC.NURSE ---
Pt alert and oriented x3. Afebrile. Pt reports 6/10 pain in face/lip?managed with ice pack to site, and PRN and scheduled medications. Pt?s lip and neck dressings are CDI.?Pt denies SOB, chest pain, and N/V. Pt is up ind. Pt slept throughout most of night. Night uneventful.???
[2024-01-02] MEDS: METOPROLOL TARTRATE 25 MG TABLET 12.5 MG PO ×2 (08:35→20:45)
[2024-01-02] MEDS: lisinopriL 5 MG TABLET PO (08:35)
[2024-01-02] MEDS: OMEPRAZOLE 20 MG CAPSULE DR PO (08:35)
[2024-01-02] MEDS: ASPIRIN 81 MG TABLET EC PO (08:35)
[2024-01-02] MEDS: ATORVASTATIN CALCIUM 40 MG TABLET PO (08:36)
[2024-01-02] MEDS: INSULIN ASPART 100 UNIT/ML SUBCUT ×4 (08:37→20:46)
--- NOTE | 2024-01-02 08:55 | W.PM.ENTPN ---
ENT-PN: Subj Subjective Date Seen: 01/02/24 Interval history: Daily Progress Note - Hospital Medicine Day #6 CC: facial cellulitis with tunnel/abscess. MSSA. ANCEF OVERNIGHT UPDATES FROM STAFF & MED, LAB, IMAGING UPDATES afebrile. vitally stable. WBC count 19.9 --> 17.9 -->13.6 hgb 13.4 -->11.3 -->9.9 chemistries reviewed. stable/improved. CRP uptrending 7.8 --> 22.9 --> 7.9 A1C 10.4 - BLOOD SUGARS 125, 342, 330, 254. NO MRSA MSSA - two species growing - ABX narrowed to ANCEF BC NGTD Objective: disshelved; poor hygiene and self care evident Vitals: see above Lungs: Clear. Cardiac: S1S2. ENT: large swollen lower lip - no significant change from admission but now with white pustules identified inside lip. chin: continued drainage and fluctuant tissue. mild lymphadenopathy palpable can open mouth widely, no airway impact evident Disposition/Potential discharge - Likely to return to previous living situation. Progress Note: A&P Assessment and plan (1) Facial abscess: Status: Acute Plan Facial and lower lip abscess status post incision and drainage improved Exam Narrative: Exam Narrative: General, much less swelling of lower lip. Induration of chin is also decreased. He overall feels about 50% better. Const: Vital Signs, click to edit/add: Vital Signs - 24 hr 01/01/24 11:00 01/01/24 13:00 01/01/24 13:59 Temperature 97.8 F 98.4 F Pulse Rate 87 Pulse Rate [Left B rachial] 80 Pulse Rate [Pulse Oximeter] Respiratory Rate 20 16 Blood Pressure 129/93 H Blood Pressure [Le ft Arm] Blood Pressure [Ri ght Arm] 125/81 Pulse Oximetry 96 96 93 Oxygen Delivery Me thod Room Air Room Air Oxygen Flow Rate 01/01/24 15:00 01/01/24 15:00 01/01/24 16:34 Temperature 98.2 F 97.4 F L Pulse Rate 96 Pulse Rate [Left B rachial] Pulse Rate [Pulse Oximeter] 85 85 Respiratory Rate 16 18 16 Blood Pressure 150/103 H Blood Pressure [Le ft Arm] Blood Pressure [Ri ght Arm] 111/80 Pulse Oximetry 97 96 Oxygen Delivery Me thod Room Air OxyMask Oxygen Flow Rate 10 01/01/24 16:40 01/01/24 16:45 01/01/24 16:50 Temperature 97.2 F L Pulse Rate 79 78 82 Pulse Rate [Left B rachial] Pulse Rate [Pulse Oximeter] Respiratory Rate 14 16 14 Blood Pressure 144/93 H 153/95 H 149/98 H Blood Pressure [Le ft Arm] Blood Pressure [Ri ght Arm] Pulse Oximetry 99 98 97 Oxygen Delivery Me thod OxyMask OxyMask Blow By Oxygen Flow Rate 10 10 10 01/01/24 16:55 01/01/24 17:00 01/01/24 17:05 Temperature 97.3 F L Pulse Rate 89 75 86 Pulse Rate [Left B rachial] Pulse Rate [Pulse Oximeter] Respiratory Rate 12 14 12 Blood Pressure 151/97 H 149/90 H 135/96 H Blood Pressure [Le ft Arm] Blood Pressure [Ri ght Arm] Pulse Oximetry 94 95 93 Oxygen Delivery Me thod Room Air Room Air Room Air Oxygen Flow Rate 01/01/24 19:00 01/02/24 00:52 01/02/24 00:52 Temperature 98.4 F 97.8 F Pulse Rate Pulse Rate [Left B rachial] Pulse Rate [Pulse Oximeter] 93 95 95 Respiratory Rate 14 16 Blood Pressure Blood Pressure [Le ft Arm] 129/93 H Blood Pressure [Ri ght Arm] 107/76 Pulse Oximetry 93 97 Oxygen Delivery Me thod Room Air Room Air Oxygen Flow Rate 01/02/24 02:30 Temperature 97.9 F Pulse Rate Pulse Rate [Left B rachial] Pulse Rate [Pulse Oximeter] 77 Respiratory Rate 14 Blood Pressure Blood Pressure [Le ft Arm] Blood Pressure [Ri ght Arm] 107/73 Pulse Oximetry 95 Oxygen Delivery Me thod Room Air Oxygen Flow Rate 10 ENT-PN: Obj Labs Labs: Laboratory Results - last 24 hr 01/02/24 06:04 WBC 15.58 H RBC 4.27 L Hgb 12.0 L Hct 36.4 L MCV 85 MCH 28 MCHC 33 Plt Count 446 H Sodium 137 Potassium 4.1 Chloride 108 Carbon Dioxide 25 Anion Gap 4 L BUN 29 Creatinine 0.8 Estimated Creat Clear 113.73 Estimated GFR 106 Glucose 190 H Calcium 8.6 C-Reactive Protein 1.7 H
--- NOTE | 2024-01-02 10:09 | W.PM.INFDCN ---
Consultation Information Consultation Information Consultation Statement: This patient recommendation is based on a telemedicine consult request which was completed asynchronously through chart review and information provided by the primary physician. The patient was not seen or examined today. The evaluation is consultative in nature and all patient care and treatment decisions can either be accepted or rejected by the patient's primary hospital-based treating physician using their own independent medical judgment for their patient. Realtime Reporter contact information: Please call ID Connect [facility] [phone] HPI - Infectious Disease History of Present Illness History of Present Illness: Akira Merchant is a 53 year old male past medical history significant for Crohn's disease for which he gets regular infusions/ [facility] infusions, last infusion 12/14/23 , insulin dependent diabetes type 2 mellitus, hypertension, hyperlipidemia, CAD, ischemic cardiomyopathy, GERD, tobacco dependence who presented to [place] ED on 12/27/23 and was admitted to the medical floor for further management facial cellulitis. Apparently, the patient was recently released from a 90 day [facility] stay, has run out of his meds, has not gotten refills and has not been compliant with his meds. He reported onset of facial swelling and pain of the chin approximately 1 week prior to ED arrival, with slow worsening, then the night prior to this admission, his lower lip edema got worse with reportedly bloody and purulent drainage from an open wound on the chin. The patient endorsed mild intermittent headaches, nausea w/o vomiting, denied, no UTI symptoms. Patient had a similar episode in 2021 for which he was hospitalized for a few days. Upon admission, pt with tachycardia, leukocytosis WBC>19K, lactic acid 1.5, CRP 7.8, Cr 1.0, procalcitonin 0.51, Hg A1C 10.4. Blood Cx were sent, pt received IV vancomycin and Zosyn initiated in the ED. Soft tissue neck CT scan c/w Severe chin, submandibular, and right cheek cellulitis. No drainable abscess. No extension to involve the floor of the mouth or the deep parapharyngeal spaces. S/p I&D in ED, 12/26 wound Cx + MSSA, so antibiotic were switched from Vanc and zosyn to IV cefazolin. 12/30 wound care consulted in f/u; opened tunnels and debrided. packed with VASHE and recommended peridex. Repeat wound Cx sent by wound care on 12/30 also positive for MSSA. ENT has been consulted, s/p OR I&D by ENT performed yesterday 12/31 per operative note: The area of the submental incision was explored with a mosquito forceps connecting several small pockets of abscess and a moderate amount of purulent material was removed. This was then connected to the mental drainage incision. The entire area was copiously irrigated the mental incision was explored as well and then iodoform gauze placed connected through to the mental and submental space. The lip was incised inferiorly in the midline in a lag in a horizontal aspect of the incision. This was then explored with mosquito forceps finding several small pus pockets. This was irrigated I did not place at a form gauze here. The patient was switched from IV cefazolin to IV Unasyn. Tele ID consult on 01/01 for recommendations Re antibiotic management and treatment course at discharge. Pt remains afebrile, per primary team some improvement noted today after surgical I&D performed by ENT. Labs reviewed leukocytosis trending down WBC 15.58K<19.9K, Hg 12, plat count 446K, Cr stable at 0.8, LA 1<1.5, CRP trending down to 1.7<7.8. Procal 0.39<0.51, admission blood cx 12/26 NGTD. Wound cx 12/26 and 12/30 + MSSA. [facility] Medical History (Updated 01/02/24 @ 08:57 by Guillermo Hernandez MD) Facial abscess ?L02.01 - Cutaneous abscess of face (ICD-10) Methamphetamine abuse ?F15.10 - Other stimulant abuse, uncomplicated (ICD-10) Tobacco dependence ?F17.200 - Nicotine dependence, unspecified, uncomplicated (ICD-10) Renal insufficiency ?N28.9 - Disorder of kidney and ureter, unspecified (ICD-10) Crohn's colitis ?K50.10 - Crohn's disease of large intestine without complications (ICD-10) Diabetes mellitus type 2, insulin dependent ?E11.9 - Type 2 diabetes mellitus without complications (ICD-10) ?Z79.4 - salvage determiner (current) use of insulin (ICD-10) Hyperlipidemia ?E78.5 - Hyperlipidemia, unspecified (ICD-10) Ischemic cardiomyopathy ?I25.5 - Ischemic cardiomyopathy (ICD-10) CAD (coronary artery disease) ?I25.10 - Atherosclerotic heart disease of [place] coronary artery without angina pectoris (ICD-10) Hypertension ?I10 - Essential (primary) hypertension (ICD-10) Crohn's disease ?K50.90 - Crohn's disease, unspecified, without complications (ICD-10) Surgical History Presence of coronary angioplasty implant and graft ?Z95.5 - Presence of coronary angioplasty implant and graft (ICD-10) Social History What is your current living situation?: I presently have a place to live Problems where you live: no known problems Problems where you live details: pt lives in [facility] In the past 12 months, utilities in danger of being shut off: no In past 12 months, lack of transportation kept you from medical appts, meetings, work, or getting things needed for daily living: no In the past 12 mos, have been you worried that your food would run out before you had money to buy more?: never true In the past 12 mos, the food you bought just didn't last and you didn't have money to buy more?: never true Highest level of school completed/degree received: 11th grade Smoking Status: Current every day smoker What tobacco products do you use: cigarettes Years smoked: 15 Do you use any of these nicotine containing products: None Second hand tobacco smoke exposure: Yes How often do you have a drink containing alcohol: never How often do you have six or more drinks on one occasion: Never AUDIT-C Alcohol total score: 0 Non-prescribed substance use: denies use Caffeine: Yes How often does anyone, including family, friends and others, physically hurt you: never How often does anyone, including family, friends and others, insult or talk down to you: never How often does anyone, including family, friends and others, threaten you with harm: never How often does anyone, including family, friends and others, scream or curse at you: never service: No Home Medications and Allergies Home Medications and Allergies Inpatient Medications: Active Medications Generic Name Dose Route Start Last Admin Trade Name Freq PRN Reason Stop Dose Admin Acetaminophen 650 - 975 mg 12/27/23 13:33 12/31/23 16:23 Acetaminophen 325 Mg Tablet PO 975 mg Q6H PRN Administration Aspirin 81 mg 12/28/23 09:00 01/02/24 08:35 Aspirin 81 Mg Tablet Ec PO 81 mg DAILY [facility] Administration Atorvastatin Calcium 40 mg 12/28/23 09:00 01/02/24 08:36 Atorvastatin Calcium 40 Mg Tablet PO 40 mg DAILY [facility] Administration Bisacodyl 10 mg 12/27/23 13:33 Bisacodyl 10 Mg Supp.Rect UT DAILY PRN Chlorhexidine Gluconate 15 ml 01/01/24 09:00 01/01/24 21:39 Chlorhexidine Gluconate 473 Ml Mouthwash SWISH/SPIT 15 ml QID [facility] Administration Diphenhydramine HCl 25 mg 12/28/23 15:01 01/02/24 08:35 Diphenhydramine 25 Mg Capsule PO 25 mg Q6H [facility] Administration Enoxaparin Sodium 40 mg 01/01/24 21:00 01/01/24 21:39 Enoxaparin 40 Mg/0.4 Ml Inj SUBCUT 40 mg HS [facility] Administration Hydromorphone HCl 2 mg 01/01/24 09:37 01/02/24 08:36 Hydromorphone 2 Mg Tablet PO 2 mg Q6H PRN Administration Hydromorphone HCl 0.2 - 0.5 mg 01/01/24 09:39 Hydromorphone 0.5 Mg/0.5 Ml Inj IVP DAILY PRN Pain Ampicillin Sodium/Sulbactam 100 mls @ 200 mls/hr 01/01/24 17:00 01/02/24 06:00 Sodium 3 gm/ Sodium Chloride IVPB Infused Q6H [facility] Infusion IV Miscellaneous Supplies 1 each 01/02/24 09:00 [facility] Discharge Med Review DAILY [facility] Ibuprofen 600 mg 12/30/23 08:44 01/02/24 06:34 Ibuprofen 600 Mg Tablet PO 600 mg Q6H PRN Administration Insulin Aspart 0 unit 12/28/23 17:30 01/02/24 08:37 Insulin Aspart 100 Unit/Ml SUBCUT 4 unit ACHS [facility] Administration Protocol Insulin Detemir 15 unit 01/01/24 09:45 01/01/24 21:41 Insulin Detemir (Levemir) 100 Unit/Ml SUBCUT 15 unit HS [facility] Administration Lisinopril 5 mg 12/29/23 09:00 01/02/24 08:35 Lisinopril 5 Mg Tablet PO 5 mg DAILY [facility] Administration Melatonin 3 - 6 mg 12/27/23 13:33 Melatonin 3 Mg Tablet PO HS PRN Metoprolol Tartrate 12.5 mg 12/27/23 21:00 01/02/24 08:35 Metoprolol Tartrate 25 Mg Tablet PO 12.5 mg BID [facility] Administration Omeprazole 20 mg 12/28/23 09:00 01/02/24 08:35 Omeprazole [address] PO 20 mg DAILY [facility] Administration Ondansetron HCl 4 mg 12/27/23 13:33 Ondansetron 2 Mg/Ml Inj IVP Q4H PRN Nausea Ondansetron HCl 4 mg 12/27/23 13:33 Ondansetron Odt 4 Mg Tab PO Q6H PRN Polyethylene Glycol 17 gm 12/27/23 13:33 Polyethylene Glycol 3350 17 Gm Pack PO DAILY PRN Senna/Docusate Sodium 1 tab 12/27/23 13:33 Sennosides/Docusate Tablet PO DAILY PRN Sodium Chloride 5 ml 12/27/23 13:33 01/02/24 05:25 Sodium Chloride 0.9 % (Flush) 10 Ml Syringe IVF 5 ml .FLUSH PRN Administration Sodium Chloride 5 ml 12/27/23 21:00 01/01/24 21:44 Sodium Chloride 0.9 % (Flush) 10 Ml Syringe IVF 5 ml BID [facility] Administration Tramadol HCl 100 mg 01/01/24 09:37 Tramadol Hcl 50 Mg Tablet PO Q6H PRN Discontinued Medications Generic Name Dose Route Start Last Admin Trade Name Freq PRN Reason Stop Dose Admin Cephalexin HCl 500 mg 12/30/23 09:00 12/31/23 06:54 Cephalexin 500 Mg Capsule PO Not Given TID [facility] Chlorhexidine Gluconate 15 ml 12/31/23 13:00 Chlorhexidine Gluconate 473 Ml Mouthwash SWISH/SPIT QID [facility] Dexamethasone Confirm 01/01/24 16:16 Dexamethasone 4 Mg/Ml Vial Administered 01/01/24 16:17 Dose 4 mg .ROUTE .STK-MED ONE Diphenhydramine HCl 25 mg 12/27/23 21:00 12/27/23 21:43 Diphenhydramine 25 Mg Capsule PO 25 mg HS [facility] Administration Enoxaparin Sodium 30 mg 12/27/23 21:00 12/28/23 20:50 Enoxaparin 30 Mg/0.3ml Inj SUBCUT 30 mg Q24H [facility] Administration Enoxaparin Sodium 40 mg 12/29/23 21:00 12/31/23 21:22 Enoxaparin 30 Mg/0.3ml Inj SUBCUT Not Given HS [facility] Ephedrine Sulfate 5 - 10 mg 01/01/24 12:55 Ephedrine Sulfate 5 Mg/Ml Inj IVP Q5M PRN Ethyl Chloride 1 applic 01/01/24 12:56 Ethyl Chloride 1 Application TOPICAL ONCE PRN Fentanyl 50 mcg 01/01/24 12:55 01/01/24 16:42 Fentanyl 100 Mcg/2 Ml Inj IVP 50 mcg Q5M PRN Administration Pain Fentanyl Confirm 01/01/24 15:15 Fentanyl 100 Mcg/2 Ml Inj Administered 01/01/24 15:16 Dose 100 mcg .ROUTE .STK-MED ONE Fentanyl Confirm 01/01/24 16:36 Fentanyl 100 Mcg/2 Ml Inj Administered 01/01/24 16:37 Dose 100 mcg .ROUTE .STK-MED ONE Hydralazine HCl 10 mg 01/01/24 12:55 Hydralazine Hcl 20 Mg/Ml Inj IVP ONCE PRN Hypertension Hydromorphone HCl 0.5 mg 12/27/23 10:25 12/27/23 10:52 Hydromorphone 0.5 Mg/0.5 Ml Inj IVP 12/27/23 10:26 0.5 mg ONCE ONE Administration Hydromorphone HCl 0.2 - 0.5 mg 12/27/23 13:33 12/30/23 05:41 Hydromorphone 0.5 Mg/0.5 Ml Inj IVP 0.5 mg Q2H PRN Administration Pain Hydromorphone HCl 0.2 - 0.5 mg 12/31/23 09:02 01/01/24 08:14 Hydromorphone 0.5 Mg/0.5 Ml Inj IVP 0.5 mg Q2H PRN Administration Pain Hydromorphone HCl 0.5 mg 12/31/23 09:47 12/31/23 09:52 Hydromorphone 0.5 Mg/0.5 Ml Inj IVP 12/31/23 09:48 0.5 mg ONCE ONE Administration Hydromorphone HCl 0.5 mg 01/01/24 12:55 Hydromorphone 0.5 Mg/0.5 Ml Inj IVP Q10M PRN Pain Hydromorphone HCl Confirm 01/01/24 16:18 Hydromorphone 0.5 Mg/0.5 Ml Inj Administered 01/01/24 16:19 Dose 0.5 mg .ROUTE .STK-MED ONE Hydroxyzine Pamoate 25 mg 01/01/24 12:55 01/02/24 00:06 Hydroxyzine Pamoate 25 Mg Capsule PO 01/01/24 12:56 Not Given ONCE ONE Sodium Chloride 1,000 mls @ 1,000 mls/hr 12/27/23 10:10 12/31/23 07:28 0.9 % Sodium Chloride 1000 Ml IV 12/27/23 11:09 Infused .Q1H [facility] Infusion Piperacillin Sod/Tazobactam 100 mls @ 200 mls/hr 12/27/23 10:31 12/31/23 07:30 Sod 3.375 gm/ Sodium Chloride IVPB 12/27/23 10:32 Infused ONCE ONE Infusion Vancomycin HCl 1,750 mg/ 517.5 mls @ 258.75 mls/hr 12/27/23 11:00 12/31/23 06:55 Sodium Chloride IVPB 12/27/23 12:59 Infused ONCE ONE Infusion Protocol Lactated Ringer's 1,000 mls @ 125 mls/hr 12/27/23 13:35 12/31/23 22:09 Lactated Ringers 1000 Ml IV Infused .Q8H [facility] Infusion Vancomycin HCl 1,750 mg/ 517.5 mls @ 256.25 mls/hr 12/28/23 12:00 12/28/23 14:00 Sodium Chloride IVPB Infused Q24H [facility] Infusion Protocol Piperacillin Sod/Tazobactam 100 mls @ 200 mls/hr 12/27/23 17:00 12/31/23 07:30 Sod 3.375 gm/ Sodium Chloride IVPB Infused Q6H [facility] Infusion Lactated Ringer's 1,000 mls @ 1,000 mls/hr 12/27/23 16:43 12/31/23 07:29 Lactated Ringers 1000 Ml IV 12/27/23 17:42 Infused .Q1H ONE Infusion Vancomycin HCl 1,250 mg/ 262.5 mls @ 175 mls/hr 12/29/23 00:00 12/30/23 02:00 Sodium Chloride IVPB Infused Q12H [facility] Infusion Protocol Cefazolin Sodium 1 gm/ Sodium 100 mls @ 200 mls/hr 12/30/23 09:30 01/01/24 12:39 Chloride IVPB Infused Q8H [facility] Infusion Lactated Ringer's 1,000 mls @ 100 mls/hr 01/01/24 13:00 01/02/24 00:06 Lactated Ringers 1000 Ml IV Infused .Q10H [facility] Infusion IV Miscellaneous Supplies 1 each 12/28/23 09:00 Pharmacist Consult DAILY [facility] Protocol Insulin Aspart 0 unit 12/27/23 17:30 12/31/23 10:54 Insulin Aspart 100 Unit/Ml SUBCUT Not Given [facility] Protocol Insulin Aspart 0 unit 12/27/23 21:01 12/28/23 11:57 Insulin Aspart 100 Unit/Ml SUBCUT 12 unit [facility] Administration Protocol Insulin Aspart 12 unit 12/27/23 21:01 12/27/23 21:41 Insulin Aspart 100 Unit/Ml SUBCUT 12/27/23 21:02 12 unit ONCE ONE Administration Insulin Aspart 8 unit 12/27/23 23:10 12/27/23 23:49 Insulin Aspart 100 Unit/Ml SUBCUT 12/27/23 23:11 8 unit ONCE ONE Administration Insulin Detemir 20 unit 12/27/23 21:00 Insulin Detemir (Levemir) 100 Unit/Ml SUBCUT [facility] Insulin Detemir 10 unit 12/27/23 21:00 12/27/23 21:42 Insulin Detemir (Levemir) 100 Unit/Ml SUBCUT 10 unit [facility] Administration Insulin Detemir 15 unit 12/28/23 15:00 12/29/23 16:17 Insulin Detemir (Levemir) 100 Unit/Ml SUBCUT 15 unit Q24H [facility] Administration Insulin Detemir 10 unit 12/29/23 19:30 12/29/23 19:21 Insulin Detemir (Levemir) 100 Unit/Ml SUBCUT 12/29/23 19:31 10 unit ONCE ONE Administration Insulin Detemir 20 unit 12/30/23 21:00 12/31/23 21:16 Insulin Detemir (Levemir) 100 Unit/Ml SUBCUT 20 unit HS [facility] Administration Insulin Human Regular 10 unit 12/27/23 11:35 12/27/23 11:40 Insulin Regular 100 Unit/Ml Inj SUBCUT 12/27/23 11:36 10 unit ONCE ONE Administration Insulin Human Regular Confirm 12/27/23 11:41 Insulin Regular 100 Unit/Ml Inj Administered 12/27/23 11:42 Dose 300 unit .ROUTE .STK-MED ONE Iopamidol 98 ml 12/27/23 11:30 Iopamidol IV 12/27/23 11:31 .STK-MED ONE Iopamidol 98 ml 12/27/23 11:40 Iopamidol IV 12/27/23 11:41 .STK-MED ONE Ketorolac Tromethamine 30 mg 12/27/23 13:33 12/27/23 14:34 Ketorolac 30 Mg/Ml Inj IVP 30 mg Q6H PRN Administration Labetalol HCl 5 - 10 mg 01/01/24 12:55 Labetalol Hcl 5 Mg/Ml Inj IVP ONCE PRN Hypertension Lisinopril 2.5 mg 12/28/23 09:00 12/28/23 08:34 Lisinopril 5 Mg Tablet PO 2.5 mg DAILY [facility] Administration Meperidine HCl 12.5 mg 01/01/24 12:55 Meperidine 25 Mg/Ml Inj IVP ONCE PRN [place] Methylprednisolone Sodium Succinate 40 mg 12/27/23 13:38 12/27/23 14:34 Methylprednisolone Sod Succ 40 Mg/Ml IVP 12/27/23 13:39 40 mg ONCE ONE Administration Methylprednisolone Sodium Succinate 40 mg 12/28/23 09:00 12/28/23 08:34 Methylprednisolone Sod Succ 40 Mg/Ml IVP 12/31/23 09:01 40 mg DAILY [facility] Administration Metoclopramide HCl 10 mg 01/01/24 12:55 Metoclopramide Hcl 5 Mg/Ml Inj IVP ONCE PRN Nausea Ondansetron HCl 4 mg 01/01/24 12:55 Ondansetron 2 Mg/Ml Inj IVP ONCE PRN Nausea Ondansetron HCl Confirm 01/01/24 16:16 Ondansetron 2 Mg/Ml Inj Administered 01/01/24 16:17 Dose 4 mg .ROUTE .STK-MED ONE Phenylephrine HCl 100 mcg 01/01/24 12:55 Phenylephrine 100 Mcg/Ml Syringe IVP Q5M PRN Prednisone 40 mg 12/28/23 14:50 12/30/23 09:45 Prednisone 20 Mg Tablet PO 12/30/23 08:01 Not Given DAILYWM [facility] Prednisone 40 mg 12/30/23 09:45 12/30/23 09:47 Prednisone 20 Mg Tablet PO 12/30/23 09:46 40 mg ONCE ONE Administration Propofol Confirm 01/01/24 16:15 Propofol 10 Mg/Ml Inj Administered 01/01/24 16:16 Dose 200 mg IVP .STK-MED ONE Sevoflurane Confirm 01/01/24 16:16 Sevoflurane Soln Administered 01/01/24 16:17 Dose 1 each IH .STK-MED ONE Sodium Chloride 5 ml 12/27/23 12:47 Sodium Chloride 0.9 % (Flush) 10 Ml Syringe IVF .FLUSH PRN Sodium Chloride 5 ml 12/27/23 21:00 12/28/23 08:36 Sodium Chloride 0.9 % (Flush) 10 Ml Syringe IVF 5 ml BID [facility] Administration Sodium Chloride 10 ml 01/01/24 12:56 Sodium Chloride 0.9 % (Flush) 10 Ml Syringe IVF .FLUSH PRN Succinylcholine Chloride Confirm 01/01/24 16:15 Succinylcholine 20 Mg/Ml Inj Administered 01/01/24 16:16 Dose 200 mg IVP .STK-MED ONE Allergies Allergy/AdvReac Type Severity Reaction Status Date / Time oxycodone [From OxyContin] Allergy Intermediate Verified 12/27/23 12:37 Objective - Infectious Disease Objective Vital Signs: Vital Signs - 24 hr 01/01/24 11:00 01/01/24 13:00 01/01/24 13:59 Temperature 97.8 F 98.4 F Pulse Rate 87 Pulse Rate [Left Brachial] 80 Pulse Rate [Pulse Oximeter] Respiratory Rate 20 16 Blood Pressure 129/93 H Blood Pressure [Left Arm] Blood Pressure [Right Arm] 125/81 Pulse Oximetry 96 96 93 Oxygen Delivery Method Room Air Room Air Oxygen Flow Rate 01/01/24 15:00 01/01/24 15:00 01/01/24 16:34 Temperature 98.2 F 97.4 F L Pulse Rate 96 Pulse Rate [Left Brachial] Pulse Rate [Pulse Oximeter] 85 85 Respiratory Rate 16 18 16 Blood Pressure 150/103 H Blood Pressure [Left Arm] Blood Pressure [Right Arm] 111/80 Pulse Oximetry 97 96 Oxygen Delivery Method Room Air OxyMask Oxygen Flow Rate 10 01/01/24 16:40 01/01/24 16:45 01/01/24 16:50 Temperature 97.2 F L Pulse Rate 79 78 82 Pulse Rate [Left Brachial] Pulse Rate [Pulse Oximeter] Respiratory Rate 14 16 14 Blood Pressure 144/93 H 153/95 H 149/98 H Blood Pressure [Left Arm] Blood Pressure [Right Arm] Pulse Oximetry 99 98 97 Oxygen Delivery Method OxyMask OxyMask Blow By Oxygen Flow Rate 10 10 10 01/01/24 16:55 01/01/24 17:00 01/01/24 17:05 Temperature 97.3 F L Pulse Rate 89 75 86 Pulse Rate [Left Brachial] Pulse Rate [Pulse Oximeter] Respiratory Rate 12 14 12 Blood Pressure 151/97 H 149/90 H 135/96 H Blood Pressure [Left Arm] Blood Pressure [Right Arm] Pulse Oximetry 94 95 93 Oxygen Delivery Method Room Air Room Air Room Air Oxygen Flow Rate 01/01/24 19:00 01/02/24 00:52 01/02/24 00:52 Temperature 98.4 F 97.8 F Pulse Rate Pulse Rate [Left Brachial] Pulse Rate [Pulse Oximeter] 93 95 95 Respiratory Rate 14 16 Blood Pressure Blood Pressure [Left Arm] 129/93 H Blood Pressure [Right Arm] 107/76 Pulse Oximetry 93 97 Oxygen Delivery Method Room Air Room Air Oxygen Flow Rate 01/02/24 02:30 Temperature 97.9 F Pulse Rate Pulse Rate [Left Brachial] Pulse Rate [Pulse Oximeter] 77 Respiratory Rate 14 Blood Pressure Blood Pressure [Left Arm] Blood Pressure [Right Arm] 107/73 Pulse Oximetry 95 Oxygen Delivery Method Room Air Oxygen Flow Rate 10 Narrative: Patient was not seen or examined. Results - Infectious Disease Results Labs: 12/31/23 10:34 Neck Wound Culture - Final Staphylococcus aureus 12/27/23 09:56 Blood Blood Culture - Final NO GROWTH AFTER 5 DAYS 12/27/23 09:56 Blood Blood Culture - Final NO GROWTH AFTER 5 DAYS 12/27/23 11:20 Face Wound Culture - Final Staphylococcus aureus#2 Staphylococcus aureus 12/27/23 15:43 Nasal - Nasal MRSA Screen - Final No MRSA (Methicillin resistant Staph aureus) isolated. Laboratory Tests 01/02/24 12/29/23 12/28/23 Range/Units 06:04 06:02 14:53 WBC 15.58 H 13.60 H (4.50-11.00) K/uL RBC 4.27 L 3.51 L (4.30-5.90) m/uL Hgb 12.0 L 9.9 L (13.5-17.5) gm/dL Hct 36.4 L 30.1 L (37.0-53.0) % MCV 85 86 (80-100) fL MCH 28 28 (26-34) pg MCHC 33 33 (32-36) gm/dL RDW Coeff of Irma 13.6 (11.5-15.5) % Plt Count 446 H 340 (140-440) K/uL Neut % (Auto) 83.1 H (42.0-72.0) % Lymph % (Auto) 11.0 L (20-44) % [place] % (Auto) 5.4 (0.0-11.0) % Eos % (Auto) 0.0 (0.0-7.0) % Baso % (Auto) 0.1 (0.0-3.0) % Neut # (Auto) 11.30 H (1.7-7.0) K/uL Lymph # (Auto) 1.50 (0.90-2.90) K/uL [place] # (Auto) 0.70 (0.00-0.90) K/UL Eos # (Auto) 0.00 (0.00-0.50) K/uL Baso # (Auto) 0.00 (0.00-0.30) K/uL Abs Immat Gran (auto) 0.10 (0.00-0.30) K/uL Imm/Tot Granulo (auto) 0.4 % INR (0.91-1.10) VBG pH (7.32-7.43) VBG pCO2 (40-50) mmHG VBG pO2 (25-47) mmHG VBG HCO3 (21-28) mmol/L Sodium 137 138 (135-149) mmol/L Potassium 4.1 4.0 (3.6-5.1) mmol/L Chloride 108 111 (96-114) mmol/L Carbon Dioxide 25 27 (20-32) mmol/L Anion Gap 4 L 0 L (7-15) mEq/L BUN 29 26 (7-30) mg/dL Creatinine 0.8 0.9 (0.5-1.5) mg/dL Estimated Creat Clear 113.73 101.10 Estimated GFR 106 102 ml/min Glucose 190 H 251 H (60-115) mg/dL Hemoglobin A1c (0-5.6) % Lactate (0.5-1.9) mmol/L Calcium 8.6 8.7 (8.4-10.6) mg/dL Phosphorus (2.5-4.5) mg/dL Total Bilirubin 0.2 (0.1-1.5) mg/dL Direct Bilirubin (0.0-0.5) mg/dL GGT (8-55) U/L AST 14 (12-35) U/L ALT 18 (4-50) U/L Alkaline Phosphatase 143 (40-150) U/L Troponin I (0.01-0.04) ng/mL C-Reactive Protein 1.7 H 7.9 H (0.5-1.0) mg/dL Total Protein 7.0 (6.0-8.3) g/dL Albumin 2.9 L (3.3-5.0) g/dL Procalcitonin (<0.50) ng/mL TSH (0.270-4.20) uIU/mL Free T4 (0.70-1.85) ng/dL Lab Acknowledgement Test Added 12/28/23 12/27/23 12/27/23 Range/Units 08:43 13:54 13:54 WBC 17.92 H (4.50-11.00) K/uL RBC 4.03 L (4.30-5.90) m/uL Hgb 11.3 L (13.5-17.5) gm/dL Hct 33.9 L (37.0-53.0) % MCV 84 (80-100) fL MCH 28 (26-34) pg MCHC 33 (32-36) gm/dL RDW Coeff of Irma 13.3 (11.5-15.5) % Plt Count 379 (140-440) K/uL Neut % (Auto) 84.5 H (42.0-72.0) % Lymph % (Auto) 9.5 L (20-44) % [place] % (Auto) 5.6 (0.0-11.0) % Eos % (Auto) 0.0 (0.0-7.0) % Baso % (Auto) 0.1 (0.0-3.0) % Neut # (Auto) 15.10 H (1.7-7.0) K/uL Lymph # (Auto) 1.70 (0.90-2.90) K/uL [place] # (Auto) 1.00 H (0.00-0.90) K/UL Eos # (Auto) 0.00 (0.00-0.50) K/uL Baso # (Auto) 0.00 (0.00-0.30) K/uL Abs Immat Gran (auto) 0.10 (0.00-0.30) K/uL Imm/Tot Granulo (auto) 0.3 % INR 1.10 (0.91-1.10) VBG pH 7.439 H (7.32-7.43) VBG pCO2 43 (40-50) mmHG VBG pO2 34.3 (25-47) mmHG VBG HCO3 29 H (21-28) mmol/L Sodium 135 (135-149) mmol/L Potassium 4.3 (3.6-5.1) mmol/L Chloride 104 (96-114) mmol/L Carbon Dioxide 27 (20-32) mmol/L Anion Gap 4 L (7-15) mEq/L BUN 22 (7-30) mg/dL Creatinine 0.9 (0.5-1.5) mg/dL Estimated Creat Clear 101.10 Estimated GFR 102 ml/min Glucose 287 H (60-115) mg/dL Hemoglobin A1c (0-5.6) % Lactate 1.0 (0.5-1.9) mmol/L Calcium 9.2 (8.4-10.6) mg/dL Phosphorus 3.7 (2.5-4.5) mg/dL Total Bilirubin 0.3 (0.1-1.5) mg/dL Direct Bilirubin 0.1 (0.0-0.5) mg/dL GGT 177 H (8-55) U/L AST 19 (12-35) U/L ALT 26 (4-50) U/L Alkaline Phosphatase 173 H (40-150) U/L Troponin I < 0.01 L (0.01-0.04) ng/mL C-Reactive Protein 22.9 H (0.5-1.0) mg/dL Total Protein 8.1 (6.0-8.3) g/dL Albumin 3.4 (3.3-5.0) g/dL Procalcitonin 0.39 (<0.50) ng/mL TSH 0.135 L (0.270-4.20) uIU/mL Free T4 2.47 H (0.70-1.85) ng/dL Lab Acknowledgement Test Added Test Added 12/27/23 Range/Units 09:56 WBC 19.93 H (4.50-11.00) K/uL RBC 4.83 (4.30-5.90) m/uL Hgb 13.4 L (13.5-17.5) gm/dL Hct 39.8 (37.0-53.0) % MCV 82 (80-100) fL MCH 28 (26-34) pg MCHC 34 (32-36) gm/dL RDW Coeff of Irma 13.1 (11.5-15.5) % Plt Count 473 H (140-440) K/uL Neut % (Auto) 84.9 H (42.0-72.0) % Lymph % (Auto) 7.4 L (20-44) % [place] % (Auto) 5.7 (0.0-11.0) % Eos % (Auto) 1.4 (0.0-7.0) % Baso % (Auto) 0.3 (0.0-3.0) % Neut # (Auto) 16.90 H (1.7-7.0) K/uL Lymph # (Auto) 1.50 (0.90-2.90) K/uL [place] # (Auto) 1.10 H (0.00-0.90) K/UL Eos # (Auto) 0.30 (0.00-0.50) K/uL Baso # (Auto) 0.10 (0.00-0.30) K/uL Abs Immat Gran (auto) 0.10 (0.00-0.30) K/uL Imm/Tot Granulo (auto) 0.3 % INR (0.91-1.10) VBG pH (7.32-7.43) VBG pCO2 (40-50) mmHG VBG pO2 (25-47) mmHG VBG HCO3 (21-28) mmol/L Sodium 128 L (135-149) mmol/L Potassium 4.0 (3.6-5.1) mmol/L Chloride 90 L (96-114) mmol/L Carbon Dioxide 30 (20-32) mmol/L Anion Gap 8 (7-15) mEq/L BUN 16 (7-30) mg/dL Creatinine 1.0 (0.5-1.5) mg/dL Estimated Creat Clear 90.99 Estimated GFR 90 ml/min Glucose 504 H* (60-115) mg/dL Hemoglobin A1c 10.4 H (0-5.6) % Lactate 1.5 (0.5-1.9) mmol/L Calcium 10.2 (8.4-10.6) mg/dL Phosphorus (2.5-4.5) mg/dL Total Bilirubin 0.6 (0.1-1.5) mg/dL Direct Bilirubin (0.0-0.5) mg/dL GGT (8-55) U/L AST 22 (12-35) U/L ALT 31 (4-50) U/L Alkaline Phosphatase 248 H (40-150) U/L Troponin I (0.01-0.04) ng/mL C-Reactive Protein 7.8 H (0.5-1.0) mg/dL Total Protein 10.2 H (6.0-8.3) g/dL Albumin 4.2 (3.3-5.0) g/dL Procalcitonin 0.51 H (<0.50) ng/mL TSH (0.270-4.20) uIU/mL Free T4 (0.70-1.85) ng/dL Lab Acknowledgement Impression & Recommendations Recommendations Impression & Recommendations: Akira Merchant is a 53 year old male past medical history significant for Crohn's disease for which he gets regular infusions/ Inflectra infusions, last infusion 12/14/23 , insulin dependent diabetes type 2 mellitus, hypertension, hyperlipidemia, CAD, ischemic cardiomyopathy, GERD, tobacco dependence who presented to [place] ED on 12/27/23 and was admitted to the medical floor for further management facial cellulitis. Apparently, the patient was recently released from a 90 day [facility] stay, has run out of his meds, has not gotten refills and has not been compliant with his meds. He reported onset of facial swelling and pain of the chin approximately 1 week prior to ED arrival, with slow worsening, then the night prior to this admission, his lower lip edema got worse with reportedly bloody and purulent drainage from an open wound on the chin. The patient endorsed mild intermittent headaches, nausea w/o vomiting, denied, no UTI symptoms. Patient had a similar episode in 2021 for which he was hospitalized for a few days. Upon admission, pt with tachycardia, leukocytosis WBC>19K, lactic acid 1.5, CRP 7.8, Cr 1.0, procalcitonin 0.51, Hg A1C 10.4. Blood Cx were sent, pt received IV vancomycin and Zosyn initiated in the ED. Soft tissue neck CT scan c/w Severe chin, submandibular, and right cheek cellulitis. No drainable abscess. No extension to involve the floor of the mouth or the deep parapharyngeal spaces. S/p I&D in ED, 12/26 wound Cx + MSSA, so antibiotic were switched from Vanc and zosyn to IV cefazolin. 12/30 wound care consulted in f/u; opened tunnels and debrided. packed with VASHE and recommended peridex. Repeat wound Cx sent by wound care on 12/30 also positive for MSSA. ENT has been consulted, s/p OR I&D by ENT performed yesterday 12/31 per operative note: The area of the submental incision was explored with a mosquito forceps connecting several small pockets of abscess and a moderate amount of purulent material was removed. This was then connected to the mental drainage incision. The entire area was copiously irrigated the mental incision was explored as well and then iodoform gauze placed connected through to the mental and submental space. The lip was incised inferiorly in the midline in a lag in a horizontal aspect of the incision. This was then explored with mosquito forceps finding several small pus pockets. This was irrigated I did not place at a form gauze here. The patient was switched from IV cefazolin to IV Unasyn. Tele ID consult on 01/01 for recommendations Re antibiotic management and treatment course at discharge. Pt remains afebrile, per primary team some improvement noted today after surgical I&D performed by ENT. Labs reviewed leukocytosis trending down WBC 15.58K<19.9K, Hg 12, plat count 446K, Cr stable at 0.8, LA 1<1.5, CRP trending down to 1.7<7.8. Procal 0.39<0.51, admission blood cx 12/26 NGTD. Wound cx 12/26 and 12/30 + MSSA. Impression/recs Pt with uncontrolled DM, Crohn's colitis managed with Inflectra infusions, last infusion 12/14/23 admitted with lip and chin MSSA skin and soft tissue infection with abscess formation, s/p surgical OR I&D performed by ENT yesterday 12/31, no OR cx sent but prior wound cx with growth of MSSA, he seems to be slowly improving and per primary team more noted improvement this am post surgical debridement, his labs seems to be trending down (WBC, CRP and procal as well as LA all trended down). Cefazolin switched to Unasyn for better anaerobic coverage per ENT request which is reasonable although MSSA might be the culprit her, however a polymicrobial process with MSSA being the dominant pathogen is possible. I recommend continuing IV Unasyn until substantial clinical improvement (by physician exam) and if the pt remains afebrile with continued clinical improvement with no further surgical I&D planned by ENT, he can be transitioned to Augmentin aim 2-3 weeks from the date of surgery. Recommendation -Follow up final wound Cx result (the one sent on 12/30) -Check HIV status if not checked recently (pt will need to provide verbal consent) -Continue to monitor clinical status, fever curve and labs with CBC/diff, CMP while pt on systemic IV Abx. -When substantial clinical status noted with continued trend down of leukocytosis and if no further plan for repeat I&D by ENT, to transition to Augmentin 875/125 mg PO BID for 2-3 weeks from the date of surgery performed on 01/01/24 with PCP and ENT follow up post discharge. -Tight glycemic control -Local wound care. -Above plan d/w Hospitalist -Thanks for the consult, tele ID will sign off, you can call with questions. Genoveva Higgins MD Anesthesia Attending [facility]
--- NOTE | 2024-01-02 10:34 | PM.IMPN1 ---
Progress Note: A&P Assessment and plan (1) Cellulitis of face: Problem details: see picture from 12/27 as separate chart note -MSSA -MRSA neg -vancomycin and Zosyn changed to Ancef changed to Unasyn -12/30 wound care consulted in f/u; opened tunnels and debrided. packed with VASHE and recommended peridex. -12/31 appreciate wound care consult - ENT to take to surgery afternoon of 12/31 -12/31 ID consult completed. Recommended: Unasyn until discharge, 14 days of BID Augmentin from date of surgery. Peridex swapped for warm salt water swish/spit Status: Acute (2) Facial abscess: Problem details: Post OP Day #1 (ENT/Dr. Hernandez) Status: Acute (3) Lip abscess: Problem details: Post OP Day #1 (ENT/Dr. Hernandez) Status: Acute (4) Hyperthyroidism: Problem details: 12/27: TSH suppressed to 0.135, free T4 2.47 -outpatient thyroid u/s and referral necessary; repeat after acute illness Status: Acute (5) Crohn's colitis: Problem details: Immunosuppressed Stable, managed with Inflectra infusions, last infusion 12/14/[address] Garcia Status: Chronic (6) Diabetes mellitus type 2, insulin dependent: Problem details: A1c 10.4. (Reports glucose checks typically around 150) Usual home dose Levemir previously 40 units but has not been using for months - starting back at 15 units on 12/27 with SSI support Diabetic diet, glucose checks ACHS, insulin sliding scale - 12/28 glucoses are markedly elevated, 300s to 400s. Increase long-acting insulin. - 12/29 improved glucose. Continue higher LA insulin plus ISS. - 12/30 splitting levemir to 15units BID Status: Chronic Subjective Date Seen: 01/02/24 Interval history: Daily Progress Note - Hospital Medicine Day #7 POST-OP DAY: #1 I/D with ENT CC: facial cellulitis with tunnel/abscess. MSSA. Ancef --> Unasyn. OVERNIGHT UPDATES FROM STAFF & MED, LAB, IMAGING UPDATES patient feels much improved after surgical drainage. afebrile. vitally stable. WBC count 19.9 --> 17.9 -->13.6 --> 15.58 hgb 13.4 -->11.3 -->9.9 --> 12 chemistries reviewed. stable/improved. CRP 7.8 --> 22.9 --> 7.9 --> 1.7 A1C 10.4 - BLOOD SUGARS 125, 342, 330, 254. NO MRSA MSSA - two separate cultures (both bedside) --> MSSA BC NGTD spoke with ID am of 01/01: continue Unasyn and then discharge on oral augmentin for 14 days from surgery. Objective: disshelved; poor hygiene and self care evident Vitals: see above Lungs: Clear. Cardiac: S1S2. ENT: bottom lip looks improved after surgical debridement last night. swelling down in the chin/submental area. Disposition/Potential discharge - Likely to return to previous living situation. Exam Const: Vital Signs, click to edit/add: Vital Signs - 24 hr 01/01/24 11:00 01/01/24 13:00 01/01/24 13:59 Temperature 97.8 F 98.4 F Pulse Rate 87 Pulse Rate [Left B rachial] 80 Pulse Rate [Pulse Oximeter] Respiratory Rate 20 16 Blood Pressure 129/93 H Blood Pressure [Le ft Arm] Blood Pressure [Ri ght Arm] 125/81 Pulse Oximetry 96 96 93 Oxygen Delivery Me thod Room Air Room Air Oxygen Flow Rate 01/01/24 15:00 01/01/24 15:00 01/01/24 16:34 Temperature 98.2 F 97.4 F L Pulse Rate 96 Pulse Rate [Left B rachial] Pulse Rate [Pulse Oximeter] 85 85 Respiratory Rate 16 18 16 Blood Pressure 150/103 H Blood Pressure [Le ft Arm] Blood Pressure [Ri ght Arm] 111/80 Pulse Oximetry 97 96 Oxygen Delivery Me thod Room Air OxyMask Oxygen Flow Rate 10 01/01/24 16:40 01/01/24 16:45 01/01/24 16:50 Temperature 97.2 F L Pulse Rate 79 78 82 Pulse Rate [Left B rachial] Pulse Rate [Pulse Oximeter] Respiratory Rate 14 16 14 Blood Pressure 144/93 H 153/95 H 149/98 H Blood Pressure [Le ft Arm] Blood Pressure [Ri ght Arm] Pulse Oximetry 99 98 97 Oxygen Delivery Me thod OxyMask OxyMask Blow By Oxygen Flow Rate 10 10 10 01/01/24 16:55 01/01/24 17:00 01/01/24 17:05 Temperature 97.3 F L Pulse Rate 89 75 86 Pulse Rate [Left B rachial] Pulse Rate [Pulse Oximeter] Respiratory Rate 12 14 12 Blood Pressure 151/97 H 149/90 H 135/96 H Blood Pressure [Le ft Arm] Blood Pressure [Ri ght Arm] Pulse Oximetry 94 95 93 Oxygen Delivery Me thod Room Air Room Air Room Air Oxygen Flow Rate 01/01/24 19:00 01/02/24 00:52 01/02/24 00:52 Temperature 98.4 F 97.8 F Pulse Rate Pulse Rate [Left B rachial] Pulse Rate [Pulse Oximeter] 93 95 95 Respiratory Rate 14 16 Blood Pressure Blood Pressure [Le ft Arm] 129/93 H Blood Pressure [Ri ght Arm] 107/76 Pulse Oximetry 93 97 Oxygen Delivery Me thod Room Air Room Air Oxygen Flow Rate 01/02/24 02:30 01/02/24 07:00 01/02/24 07:00 Temperature 97.9 F 97.7 F Pulse Rate Pulse Rate [Left B rachial] Pulse Rate [Pulse Oximeter] 77 72 72 Respiratory Rate 14 16 16 Blood Pressure Blood Pressure [Le ft Arm] Blood Pressure [Ri ght Arm] 107/73 125/73 Pulse Oximetry 95 93 Oxygen Delivery Me thod Room Air Room Air Oxygen Flow Rate 10 Labs Labs: Laboratory Results - last 24 hr 01/02/24 06:04 WBC 15.58 H RBC 4.27 L Hgb 12.0 L Hct 36.4 L MCV 85 MCH 28 MCHC 33 Plt Count 446 H Sodium 137 Potassium 4.1 Chloride 108 Carbon Dioxide 25 Anion Gap 4 L BUN 29 Creatinine 0.8 Estimated Creat Clear 113.73 Estimated GFR 106 Glucose 190 H Calcium 8.6 C-Reactive Protein 1.7 H
[2024-01-02] MEDS: TRAMADOL HCL 50 MG TABLET 100 MG PO ×2 (12:11→20:44)
--- NOTE | 2024-01-02 18:29 | PC.NURSE ---
End of shift note: Patient stable throughout shift and vitals WNL. Order for wound care changed by MD to just change outer dressing and MD to remove packing on Sunday. Area around incision cleansed with Vashe and ABD and gauze applied. Dressing clean, dry, and intact at this time. Patient to perform saltwater swish and spit 4x/day. Patient receiving PO Dilaudid and Tramadol for pain management. Pain worsens after eating/chewing. Patient reports improvement in pain post-medication. Patient also utilizing cold compresses. Patient receiving IV Unasyn. L) AC IV removed due to pain with flushing and new 20ga IV inserted in R) FA. R) FA IV patent. Will continue to implement ongoing plan of care.
[2024-01-02] MEDS: ENOXAPARIN 40 MG/0.4 ML INJ SUBCUT (20:46)
[2024-01-03] MEDS: IBUPROFEN 600 MG TABLET PO (01:32)
[2024-01-03 03:00] VITALS: BP 101/74; PULSE 72; RESP 18; TEMP 36.2; O2SAT 97
[2024-01-03] MEDS: diphenhydrAMINE 25 MG CAPSULE PO ×4 (03:11→19:58)
[2024-01-03] MEDS: TRAMADOL HCL 50 MG TABLET 100 MG PO (03:12)
[2024-01-03] MEDS: AMPICILLIN/SULBACTAM 3 GM in 0.9 % SODIUM CHLORIDE Mini-bag 100 ML IVPB ×4 (05:10→23:14)
[2024-01-03] MEDS: HYDROmorphone 2 MG TABLET PO ×3 (05:56→19:57)
--- NOTE | 2024-01-03 06:15 | PC.NURSE ---
End of shift report [id number]: Alert and oriented x 4. Pain to chin/jaw reported, PRN tramadol, dilaudid and ibuprofen utilized, as well as ice packs to jaw. Patient reports relief with use of diluadid, he has minimal relief with tramadol. Dressing to chin changed, small amount of bloody, purulent drainage on ABD pad. Ambulates independently in room.
[2024-01-03 06:41] LABS: Chloride* 110 mmol/L (96-114); Hematocrit 36.1 % (37.0-53.0); Hemoglobin* 11.7 gm/dL (13.5-17.5); Mean Corpuscular HGB Conc 32 gm/dL (32-36); Mean Corpuscular Hemoglobin 28 pg (26-34); Mean Corpuscular Volume 86 fL (80-100); Platelet Count* 412 K/uL (140-440); Potassium* 4.2 mmol/L (3.6-5.1); Red Blood Count 4.18 m/uL (4.30-5.90); Sodium* 139 mmol/L (135-149)
[2024-01-03 06:43] LABS: Est. Creatinine Clearance* 90.99; Estimated Glomerular Filt Rate 90 ml/min
[2024-01-03 06:44] LABS: Anion Gap 3 mEq/L (7-15); Blood Urea Nitrogen* 35 mg/dL (7-30); Calcium* 8.7 mg/dL (8.4-10.6); Carbon Dioxide* 26 mmol/L (20-32); Glucose* 142 mg/dL (60-115)
[2024-01-03 06:47] LABS: C Reactive Protein* 1.2 mg/dL (0.5-1.0)
[2024-01-03 07:05] LABS: Slide Review Reflex No
[2024-01-03 07:50] VITALS: BP 121/77; PULSE 71; RESP 16; TEMP 36.2; O2SAT 98
[2024-01-03] MEDS: ATORVASTATIN CALCIUM 40 MG TABLET PO (08:50)
[2024-01-03] MEDS: OMEPRAZOLE 20 MG CAPSULE DR PO (08:50)
[2024-01-03] MEDS: ASPIRIN 81 MG TABLET EC PO (08:50)
[2024-01-03] MEDS: lisinopriL 5 MG TABLET PO (08:50)
[2024-01-03] MEDS: SODIUM CHLORIDE 0.9 % (FLUSH) 10 ML SYRINGE 5 ML IVF ×2 (08:51→19:58)
[2024-01-03] MEDS: METOPROLOL TARTRATE 25 MG TABLET 12.5 MG PO ×2 (08:51→19:59)
--- NOTE | 2024-01-03 10:09 | PM.IMPN1 ---
Progress Note: A&P Assessment and plan (1) Cellulitis of face: Problem details: -MSSA -MRSA neg -vancomycin and Zosyn changed to Ancef changed to Unasyn -12/30 wound care consulted in f/u; opened tunnels and debrided. packed with VASHE and recommended peridex. -12/31 appreciate wound care consult - ENT to take to surgery afternoon of 12/31 -01/01 ID consult completed. Recommended: Unasyn until discharge, 14 days of BID Augmentin from date of surgery. Peridex swapped for warm salt water swish/spit Status: Acute (2) Facial abscess: Problem details: Post OP Day #2 (ENT/Dr. Hernandez) Status: Acute (3) Lip abscess: Problem details: Post OP Day #2 (ENT/Dr. Hernandez) Status: Acute (4) Hyperthyroidism: Problem details: 12/27: TSH suppressed to 0.135, free T4 2.47 -outpatient thyroid u/s and referral necessary; repeat after acute illness Status: Acute (5) Crohn's colitis: Problem details: Immunosuppressed Stable, managed with Inflectra infusions, last infusion 12/14/[address] Garcia Status: Chronic (6) Diabetes mellitus type 2, insulin dependent: Problem details: A1c 10.4. (Reports glucose checks typically around 150) Usual home dose Levemir previously 40 units but has not been using for months - starting back at 15 units on 12/27 with SSI support Diabetic diet, glucose checks ACHS, insulin sliding scale - 12/28 glucoses are markedly elevated, 300s to 400s. Increase long-acting insulin. - 12/29 improved glucose. Continue higher LA insulin plus ISS. - 01/02 splitting levemir to 15units BID Status: Chronic Subjective Date Seen: 01/03/24 Interval history: Daily Progress Note - Hospital Medicine Day #8 POST-OP DAY: #2 I/D with ENT CC: facial cellulitis with tunnel/abscess. MSSA. Vanc/Zosyn --> Ancef --> Unasyn. OVERNIGHT UPDATES FROM STAFF & MED, LAB, IMAGING UPDATES patient feels much improved after surgical drainage. lip is still mildy swollen. pain is improved. drainage from tape that is threaded thru tunnel is draining appropriately. afebrile. vitally stable. WBC count 19.9 --> 17.9 -->13.6 --> 15.58 --> 12.2 hgb 13.4 -->11.3 -->9.9 --> 12 --> 11.7 chemistries reviewed. stable/improved. CRP 7.8 --> 22.9 --> 7.9 --> 1.7 --> 1.2 A1C 10.4 - BLOOD SUGARS 123, 272, 219, 297 NO MRSA MSSA - two separate cultures (both bedside) --> MSSA BC NGTD spoke with ID am of 01/01: continue Unasyn and then discharge on oral augmentin for 14 days from surgery. Objective: disshelved; poor hygiene and self care evident Vitals: see above Lungs: Clear. Cardiac: S1S2. ENT: bottom lip looks improved after surgical debridement last night. swelling down in the chin/submental area. good drainage from tunneled region. Disposition/Potential discharge - Likely to return to previous living situation. Exam Const: Vital Signs, click to edit/add: Vital Signs - 24 hr 01/02/24 11:00 01/02/24 15:30 01/02/24 15:30 Temperature 98.1 F 97.5 F L Pulse Rate [Pulse Oximeter] 72 79 79 Respiratory Rate 16 16 16 Blood Pressure [Le ft Arm] Blood Pressure [Ri ght Arm] 109/71 109/65 Pulse Oximetry 96 96 Oxygen Delivery Me thod Room Air Room Air 01/02/24 19:00 01/02/24 23:00 01/02/24 23:00 Temperature 97.9 F 98.0 F Pulse Rate [Pulse Oximeter] 78 69 69 Respiratory Rate 18 16 16 Blood Pressure [Le ft Arm] 113/65 97/61 Blood Pressure [Ri ght Arm] Pulse Oximetry 98 96 Oxygen Delivery Me thod Room Air Room Air 01/03/24 03:00 01/03/24 07:50 01/03/24 07:50 Temperature 97.1 F L 97.2 F L Pulse Rate [Pulse Oximeter] 72 71 71 Respiratory Rate 18 16 16 Blood Pressure [Le ft Arm] 121/77 Blood Pressure [Ri ght Arm] 101/74 Pulse Oximetry 97 98 Oxygen Delivery Me thod Room Air Room Air Labs Labs: Laboratory Results - last 24 hr 01/03/24 06:18 WBC 12.20 H RBC 4.18 L Hgb 11.7 L Hct 36.1 L MCV 86 MCH 28 MCHC 32 Plt Count 412 Sodium 139 Potassium 4.2 Chloride 110 Carbon Dioxide 26 Anion Gap 3 L BUN 35 H Creatinine 1.0 Estimated Creat Clear 90.99 Estimated GFR 90 Glucose 142 H Calcium 8.7 C-Reactive Protein 1.2 H
[2024-01-03 11:00] VITALS: BP 116/82; PULSE 61; RESP 16; TEMP 36.3; O2SAT 97
[2024-01-03] MEDS: INSULIN ASPART 100 UNIT/ML SUBCUT ×2 (12:01→21:26)
[2024-01-03 14:52] VITALS: BP 116/61; PULSE 74; RESP 16; TEMP 36.2; O2SAT 96
[2024-01-03] MEDS: 0.9 % SODIUM CHLORIDE 250 ml IV (17:19)
--- NOTE | 2024-01-03 19:05 | PC.NURSE ---
End of shift note (): Pt stable throughout shift. Vitals WNL. Pt A&OX3. Pt continues to have flat affect and naps frequently. Wound care completed to face incision. Patient's pain is adequately managed with PRN PO Dilaudid, given once this shift. Patient ambulates and toilets himself independently. Pt receiving IV Unasyn; IV patent. Possible DC in the next 1-2 days. Will continue to implement ongoing plan of care.
[2024-01-03] MEDS: ENOXAPARIN 40 MG/0.4 ML INJ SUBCUT (19:58)
[2024-01-03 20:15] VITALS: BP 120/79; PULSE 89; RESP 18; TEMP 36.7; O2SAT 97
[2024-01-03 23:00] VITALS: BP 114/74; PULSE 75; RESP 18; TEMP 36.9; O2SAT 96
[2024-01-04 03:00] VITALS: BP 127/85; PULSE 75; RESP 18; TEMP 36.7; O2SAT 97
[2024-01-04] MEDS: HYDROmorphone 2 MG TABLET PO (03:12)
[2024-01-04] MEDS: diphenhydrAMINE 25 MG CAPSULE PO ×2 (03:13→08:40)
[2024-01-04] MEDS: AMPICILLIN/SULBACTAM 3 GM in 0.9 % SODIUM CHLORIDE Mini-bag 100 ML IVPB ×2 (05:25→09:56)
--- NOTE | 2024-01-04 06:21 | PC.NURSE ---
19-: pleasant and cooperative. Indep. Dressing to chin reinforced, intact. VSS.
[2024-01-04 07:25] VITALS: BP 123/90; PULSE 69; RESP 14; TEMP 36.8; O2SAT 96
[2024-01-04 08:07] VITALS: PULSE 69; RESP 14
[2024-01-04] MEDS: OMEPRAZOLE 20 MG CAPSULE DR PO (08:40)
[2024-01-04] MEDS: ASPIRIN 81 MG TABLET EC PO (08:40)
[2024-01-04] MEDS: ATORVASTATIN CALCIUM 40 MG TABLET PO (08:40)
[2024-01-04] MEDS: lisinopriL 5 MG TABLET PO (08:40)
[2024-01-04] MEDS: METOPROLOL TARTRATE 25 MG TABLET 12.5 MG PO (08:40)
[2024-01-04] MEDS: SODIUM CHLORIDE 0.9 % (FLUSH) 10 ML SYRINGE 5 ML IVF (08:41)
--- NOTE | 2024-01-04 10:22 | PM.DS1 ---
DS: Providers Provider Date Seen: 01/04/24 Date of admission: 12/27/23 13:33 Primary care physician: Not a Local Provider Admitting Clinician: Suad Calix MD Consults: 12/28/23 09:03 Consult to Wound Care [CONS] Routine Comment: Open wound on chin Consulting Provider: Lian Norman 01/02/24 08:52 Consult to Infectious Diseases [CONS] Routine Comment: Consulting Provider: [facility] Consult priority: Routine Has provider been notified: No Call back required?: Yes Attending Physician on discharge: Suad Calix MD Date of Discharge: 01/04/24 DS: Diagnosis Discharge Diagnosis (1) Cellulitis of face: Status: Acute Problem details: -MSSA -MRSA neg -vancomycin and Zosyn changed to Ancef changed to Unasyn -12/30 wound care consulted in f/u; opened tunnels and debrided. packed with VASHE and recommended peridex. -12/31 appreciate wound care consult - ENT to take to surgery afternoon of 12/31 -01/01 ID consult completed. Recommended: Unasyn until discharge, 14 days of BID Augmentin from date of surgery. Peridex swapped for warm salt water swish/spit At discharge, Oral Augmentin 875mg BID. Leave the packing in. ENT f/u arranged. (2) Facial abscess: Status: Acute (3) Lip abscess: Status: Acute (4) Hyperthyroidism: Status: Acute Problem details: 12/27: TSH suppressed to 0.135, free T4 2.47 -outpatient thyroid u/s and referral necessary; repeat after acute illness (5) Diabetes mellitus type 2, insulin dependent: Status: Chronic Problem details: A1c 10.4. (Reports glucose checks typically around 150) Usual home dose Levemir previously 40 units but has not been using for months - starting back at 15 units on 12/27 with SSI support Diabetic diet, glucose checks ACHS, insulin sliding scale - 12/28 glucoses are markedly elevated, 300s to 400s. Increase long-acting insulin. - 12/29 improved glucose. Continue higher LA insulin plus ISS. - 01/02 splitting levemir to 15units BID DS: Summary Hospital Course Hospital Course: FINAL DIAGNOSIS/FOLLOW UP ISSUES: 1. Cellulitis - Finish all the Augmentin. See ENT for f/u cares. Continue Swish and Spit. Leave tape in tunnel until seen. 2. Hyperthyroidism - we recommend your TSH be rechecked after this acute infection. Please f/u with your PCP. BRIEF HOSPITAL COURSE: Patient was admitted for 9 days. Synopsis of acute inpatient issues are outlined above. Chronic medical conditions with notable findings outlined above. Essentially the patient was admitted for 9 days secondary to the need for IV antibiotics. On day 6 he was taken to the OR for formal debridement with ENT. He is being discharged home with oral Augmentin his packing in place. This is still draining. We elected to leave his tape in place in his chin tunnel (surgically explored) and ask him not to pull this. ENT will see him next week. DISCHARGE MEDICATIONS: See Reconciled list - SIGNIFICANT CHANGES: Augmentin 875mg BID Specific instructions to the patient and follow-up are outlined below. REVIEW OF SYSTEMS No new chest pain or dyspnea Pain controlled No voiding difficulties Tolerating diet challenge PHYSICAL EXAM: CONSTITUTIONAL: alert, cooperative VITAL SIGNS: see record. HEENT: Normocephalic, atraumatic. PERRL, EOMI, conjunctivae pink, no scleral icterus. Ears and nose externally normal. Pharynx normal. NECK: No JVD. No carotid bruit, no thyromegaly, no adenopathy. CHEST: Clear to auscultation bilaterally. HEART: S1 and S2 normal. Edema ABDOMEN: Soft, nontender. Normal bowel sounds. MUSCULOSKELETAL: No gross joint deformity or swelling. NEURO: Cranial nerves intact. Grossly intact. No asymmetric findings. SKIN: Chin still has moderate edema, tunnel with packing strip from opening to opening. draining. inside lip has sealed over. swelling down from lower lip. PSYCHIATRIC: Mood euthymic. DISPOSITION: Time spent on discharge 37 minutes. Status at Discharge Functional status at discharge: independent ambulation Overall status at discharge: patient is progressing back to baseline Time Spent with Patient Time attestation: Total time spent providing and/or coordinating discharge services: Time spent: Greater than 30 minutes Exam Const: Vital Signs, click to edit/add: Vital Signs - 24 hr 01/03/24 11:00 01/03/24 14:52 01/03/24 14:52 Temperature 97.3 F L 97.2 F L Pulse Rate [Pulse Oximeter] 61 74 74 Respiratory Rate 16 16 16 Blood Pressure [Le ft Arm] 116/82 116/61 Blood Pressure [Ri ght Arm] Pulse Oximetry 97 96 Oxygen Delivery Me thod Room Air Room Air 01/03/24 20:15 01/03/24 23:00 01/03/24 23:00 Temperature 98.1 F 98.4 F Pulse Rate [Pulse Oximeter] 89 75 Respiratory Rate 18 18 18 Blood Pressure [Le ft Arm] Blood Pressure [Ri ght Arm] 120/79 114/74 Pulse Oximetry 97 96 Oxygen Delivery Me thod Room Air Room Air 01/04/24 03:00 01/04/24 07:25 01/04/24 08:07 Temperature 98.1 F 98.3 F Pulse Rate [Pulse Oximeter] 75 69 69 Respiratory Rate 18 14 14 Blood Pressure [Le ft Arm] Blood Pressure [Ri ght Arm] 127/85 123/90 H Pulse Oximetry 97 96 Oxygen Delivery Me thod Room Air Room Air Discharge Plan Discharge Disposition: Home, Self-Care Date of Admission: 12/27/23 13:33 Attending Provider on Discharge: Suad Calix Primary Care Provider: Provider,Not a Local Condition: Stable Anticipated Discharge Date/Time: 01/04/24 09:12 Discharge Medications: New amoxicillin-pot clavulanate 875-125 mg tablet 1 tab PO BID Qty: 28 0RF Continued acetaminophen 500 mg tablet PO aspirin 81 mg capsule 81 mg PO DAILY atorvastatin 40 mg tablet 40 mg PO DAILY diphenhydramine HCl 25 mg tablet 25 mg PO QPM insulin aspart U-100 [Novolog FlexPen U-100 Insulin] 1 - 12 unit subcut TIDWMEAL insulin detemir U-100 [Levemir FlexTouch U100 Insulin] 40 unit subcut HS lisinopril 2.5 mg tablet 2.5 mg PO DAILY metoprolol tartrate 25 mg tablet 12.5 mg PO BID pantoprazole [address] for susp in packet 40 mg PO DAILY Discharge Orders: Discharge Order (Routine); Ordered 01/04/24 Ordered By: Suad Calix Patient Education: Amoxicillin/Clavulanate Potassium (By mouth), Cellulitis (GEN) Additional Instructions: Leave the tape strip in your chin alone. Dr. Ayers will take this out next Sunday. Keep a Tefla pad (Nurse will give you a few) against the draining chin and then an pad with a mask to catch drainage. Take your antibiotic twice a day with food until gone or until Dr. Ayers says you can stop swish and spit warm salt water 4x a day, especially after food. Activity Level: Activity as Tolerated and Other Discharge Diet: Diabetic and Other Follow Up Appointments: Guillermo Hernandez MD [Staff Physician] - 01/09/24 9:00 am ([facility] for Post Hospital follow-up with Dr Hernandez. ) Forms: Server [employer] Info Instructions
--- NOTE | 2024-01-04 11:17 | PC.NURSE ---
Discharge: Patient pleasant and cooperative. Patient vitally stable, lungs clear, BS WNL, IV removed, catheter intact. Patient rates facial pain 4/10, no pain medications given. Patient independent in room. Outter dressing of chin wounds changed. Patient urinating and tolerating regular diet. Patient signed belongings sheet and discharge form. Patient had no further questions regarding discharge instructions. Extra wound materials were sent with patient. Patient left the floor by wheelchair at 1043.
--- NOTE | 2024-01-04 12:17 | PC.NURSE ---
Post Discharge-- Pt called back following discharge and stated that he doesn't have any insulin. Dr Calix was notified and sent script to pharmacy.
== END 2024-01-04 10:43 | disposition home or self-care (01) | DRG 364 ==
LOC: ED 12:46 → MEDSURG 13:19
PROVIDERS: Otolaryngology; Admitting Provider Family Medicine; Emergency Provider Internal Medicine; Visit Provider Family Medicine
PROC: 0HB1XZZ Excision of Face Skin, External Approach (ICD-10-PCS; principal; 2024-01-01 16:00)
DX: L03.211 Cellulitis of face (principal); K12.2 Cellulitis and abscess of mouth; K13.79 Other lesions of oral mucosa; L02.01 Cutaneous abscess of face; B95.61 Methicillin susceptible Staphylococcus aureus infection as the cause of diseases classified elsewhere; F17.210 Nicotine dependence, cigarettes, uncomplicated; F15.10 Other stimulant abuse, uncomplicated; E11.65 Type 2 diabetes mellitus with hyperglycemia; E11.22 Type 2 diabetes mellitus with diabetic chronic kidney disease; K50.90 Crohn's disease, unspecified, without complications; Z79.4 Long term (current) use of insulin; I25.5 Ischemic cardiomyopathy; N18.9 Chronic kidney disease, unspecified; I13.10 Hypertensive heart and chronic kidney disease without heart failure, with stage 1 through stage 4 chronic kidney disease, or unspecified chronic kidney disease; Z86.14 Personal history of Methicillin resistant Staphylococcus aureus infection; E05.90 Thyrotoxicosis, unspecified without thyrotoxic crisis or storm; I25.10 Atherosclerotic heart disease of native coronary artery without angina pectoris; E78.5 Hyperlipidemia, unspecified
CPT/HCPCS: 00300; 36415; 70491; 80048; 80053; 80069; 80076; 82803; 82962; 82977; 83036; 83605; 84145; 84439; 84443; 84484; 85025; 85027; 85610; 86140; 87040; 87070; 87081; 87186; 93005; 99283; 99284; 99285; A9270; J0295; J0330; J0690; J1100; J1170; J1650; J1885; J2405; J2543; J2704; J2919; J3010; J3370; J7030; J7050; J7120; J7512; Q9967

== ENCOUNTER 2024-02-01 21:12 | Inpatient (IN) | payer OTHER, SELFPAY ==
--- NOTE | 2024-02-01 21:55 | ED_ITS ---
HPI - General Adult General Time Seen by Provider: 21:55 Date Seen: 02/01/24 Chief complaint: Dental/Oral/Mouth Injury/Pain Stated complaint: tooth infection Time Seen by Provider: 02/01/24 21:55 Source: patient Mode of arrival: ambulatory Limitations: no limitations History of Present Illness HPI narrative: 53-year-old male who comes in with concern for a dental infection. Patient recently admitted with facial abscess and cellulitis, underwent incision and drainage of abscesses of the left and submental area, and was discharged. Finished antibiotics about a week ago and was doing well until 3 or 4 days ago. Denies difficulty swallowing or breathing, does state area is painful. Related Data Home Medications Medication Instructions Recorded Confirmed acetaminophen 500 mg tablet 1,000 mg PO Q6H PRN 12/27/23 02/01/24 aspirin 81 mg capsule 81 mg PO DAILY 12/27/23 02/01/24 atorvastatin 40 mg tablet 40 mg PO DAILY 12/27/23 02/01/24 diphenhydramine HCl 25 mg tablet 25 mg PO HS 12/27/23 02/02/24 lisinopril 2.5 mg tablet 2.5 mg PO DAILY 12/27/23 02/01/24 metoprolol tartrate 25 mg tablet 12.5 mg PO BID 12/27/23 02/01/24 pantoprazole 40 mg granules 40 mg PO DAILY 12/27/23 02/01/24 delayed-release for susp in packet insulin aspart U-100 100 unit/mL 5 unit subcut TIDWM 02/02/24 02/02/24 (3 mL) subcutaneous pen (Novolog FlexPen U-100 Insulin aspart) insulin glargine 100 unit/mL (3 15 unit subcut BID 02/02/24 02/02/24 mL) subcutaneous pen (Lantus Solostar U-100 Insulin) Allergies Allergy/AdvReac Type Severity Reaction Status Date / Time oxycodone [From OxyContin] Allergy Intermediate Verified 01/09/24 09:32 [facility] Medical History (Updated 02/02/24 @ 12:43 by Jordyn Bonner PA-C) Smoking ?F17.200 - Nicotine dependence, unspecified, uncomplicated (ICD-10) Dental decay ?K02.9 - Dental caries, unspecified (ICD-10) Facial abscess ?L02.01 - Cutaneous abscess of face (ICD-10) Methamphetamine abuse ?F15.10 - Other stimulant abuse, uncomplicated (ICD-10) Tobacco dependence ?F17.200 - Nicotine dependence, unspecified, uncomplicated (ICD-10) Renal insufficiency ?N28.9 - Disorder of kidney and ureter, unspecified (ICD-10) Crohn's colitis ?K50.10 - Crohn's disease of large intestine without complications (ICD-10) Diabetes mellitus type 2, insulin dependent ?E11.9 - Type 2 diabetes mellitus without complications (ICD-10) ?Z79.4 - watermelon inspector (current) use of insulin (ICD-10) Hyperlipidemia ?E78.5 - Hyperlipidemia, unspecified (ICD-10) Ischemic cardiomyopathy ?I25.5 - Ischemic cardiomyopathy (ICD-10) CAD (coronary artery disease) ?I25.10 - Atherosclerotic heart disease of [place] coronary artery without angina pectoris (ICD-10) Hypertension ?I10 - Essential (primary) hypertension (ICD-10) Crohn's disease ?K50.90 - Crohn's disease, unspecified, without complications (ICD-10) Surgical History Presence of coronary angioplasty implant and graft ?Z95.5 - Presence of coronary angioplasty implant and graft (ICD-10) Social History (Updated 02/01/24 @ 23:44 by Jerad Saleh MD) Narrative: He lives alone in [place]. Is next door neighbor is Dilip Vallejo. He indicates that Dilip would be his healthcare power of staff attorney. Code status is full. He continues to smoke cigarettes. He does not drink alcohol. Reports no recreational drug use. What is your current living situation?: I presently have a place to live Problems where you live: no known problems Problems where you live details: pt lives in [facility] In the past 12 months, utilities in danger of being shut off: no In past 12 months, lack of transportation kept you from medical appts, meetings, work, or getting things needed for daily living: no In the past 12 mos, have been you worried that your food would run out before you had money to buy more?: never true In the past 12 mos, the food you bought just didn't last and you didn't have money to buy more?: never true Highest level of school completed/degree received: 11th grade Smoking Status: Current every day smoker What tobacco products do you use: cigarettes Years smoked: 15 Do you use any of these nicotine containing products: None Second hand tobacco smoke exposure: Yes How often do you have a drink containing alcohol: never How often do you have six or more drinks on one occasion: Never AUDIT-C Alcohol total score: 0 Non-prescribed substance use: denies use Caffeine: Yes (Soda) How often does anyone, including family, friends and others, physically hurt you : never How often does anyone, including family, friends and others, insult or talk down to you: never How often does anyone, including family, friends and others, threaten you with harm: never How often does anyone, including family, friends and others, scream or curse at you: never service: No Exam Narrative: Exam Narrative: General: Well-developed and well-nourished, no acute distress Head: Atraumatic and normocephalic Eyes: Pupils are equal reactive, extraocular motions intact, conjunctiva clear ENT: Marked swelling of the lower lip, small amount of purulent drainage of the lateral lower lip, for 4 cm of induration and swelling of the anterior submental area with question of 1-2 cm abscess in the area. No sublingual swelling. Neck: No midline cervical tenderness, full spontaneous range of motion the neck, trachea midline, no adenopathy Heart: Regular rate and rhythm no murmurs or thrills Lungs: Clear to auscultation bilaterally without wheezes or crackles Abdomen: Soft, nontender, nondistended with active bowel sounds Musculoskeletal: No tenderness, deformity, or edema Neurologic: Awake, alert, and oriented x3, no gross focal neurologic deficits, cranial nerves intact as tested Psych: Mood and affect are appropriate Skin: No rashes Const: Vital Signs, click to edit/add: Vital Signs - 24 hr 02/01/24 22:14 02/02/24 00:19 Temperature 98.9 F Pulse Rate [Pulse Oximeter] 106 H Respiratory Rate 16 Blood Pressure [Ri ght Upper Arm] 121/81 Pulse Oximetry 96 95 Oxygen Delivery Me thod Room Air Course Course ED Course: Patient seen and examined from December 26 a when patient was admitted with facial cellulitis which was MSSA, discharged on Augmentin, patient had debridement in the OR on December 31 of a lip abscess and submental abscess. Patient re-presented today with similar symptoms started a couple days ago. On exam, swelling of the lower lip and anterior submental area, no sublingual swelling, no breathing or swallowing difficulty. Patient with mild tachycardia but no hypotension and no fever. Care discussed with Dr. Hernandez who recommends admission, IV antibiotics. CT scan will be done and if there is a drainable fluid collection will attempt bedside drainage. Reevaluation(s) Time of Reevaluation #1: 22:36 Reevaluation #1: With care discussed with Dr. Saleh hospitalist for admission. Will keep patient in the emergency department until CT and labs are done Time of Reevaluation #2: 23:43 Reevaluation #2: Labs ordered and independently interpreted by me, basic panel with hyperglycemia, CBC with leukocytosis but no other acute findings. Time of Reevaluation #3: 01:07 Reevaluation #3: CT scan independently interpreted by me with no drainable fluid collection, radiology interpretation agrees. Early Alonso's angina noted on CT report, however no sublingual swelling, edema is isolated to the anterior some mental area, no rapid progression. Patient will be admitted for further evaluation and treatment Vital Signs Vital signs: Initial Vital Signs Temperature 98.9 F 02/01/24 22:14 Temperature Source Temporal Artery Scan 02/01/24 22:14 Pulse Rate 106 H 02/01/24 22:14 Respiratory Rate 16 02/01/24 22:14 Blood Pressure 121/81 02/01/24 22:14 Blood Pressure Mean 94 02/01/24 22:14 Blood Pressure Position Sitting 02/01/24 22:14 Pulse Oximetry 96 02/01/24 22:14 Oxygen Delivery Method Room Air 02/01/24 22:14 Vital Signs Temperature 98.9 F 02/01/24 22:14 Pulse Rate 106 H 02/01/24 22:14 Respiratory Rate 16 02/01/24 22:14 Blood Pressure 121/81 02/01/24 22:14 Pulse Oximetry 96 02/01/24 22:14 Oxygen Delivery Method Room Air 02/01/24 22:14 Temperature 98.0 F 02/03/24 07:46 Pulse Rate 90 02/03/24 07:46 Respiratory Rate 18 02/03/24 07:46 Blood Pressure 125/81 02/03/24 07:46 Pulse Oximetry 95 05/19/24 07:46 Oxygen Delivery Method Room Air 02/03/24 07:46 Medications Administered Medications: Generic Name Dose Route Start Last Admin Trade Name Caitlyn PRN Reason Stop Dose Admin Acetaminophen 650 mg 02/01/24 23:29 02/02/24 08:21 Acetaminophen 325 Mg Tablet PO 650 mg Q4H PRN Administration Hydrocodone Bitart/Acetaminophen 1 tab 02/02/24 10:12 02/03/24 03:18 Hydrocodone/Acetamin 7.5-325 Tablet PO 1 tab Q6H PRN Administration Aspirin 81 mg 02/02/24 09:00 02/02/24 08:32 Aspirin 81 Mg Tablet Ec PO 81 mg DAILY TRAVIS Administration Atorvastatin Calcium 40 mg 02/02/24 09:00 02/02/24 08:21 Atorvastatin Calcium 40 Mg Tablet PO 40 mg DAILY TRAVIS Administration Ampicillin Sodium/Sulbactam 100 mls @ 200 mls/hr 02/02/24 16:00 02/03/24 03:17 Sodium 3 gm/ Sodium Chloride IVPB 200 mls/hr Q6H TRAVIS Administration Insulin Aspart 0 unit 02/02/24 07:30 02/02/24 20:54 Insulin Aspart 100 Unit/Ml SUBCUT 4 unit ACHS TRAVIS Administration Protocol Insulin Aspart 5 unit 02/02/24 08:00 02/02/24 16:47 Insulin Aspart 100 Unit/Ml SUBCUT 5 unit TIDWM TRAVIS Administration Insulin Detemir 15 unit 02/02/24 09:00 02/02/24 20:53 Insulin Detemir (Levemir) 100 Unit/Ml SUBCUT 15 unit BID TRAVIS Administration Lisinopril 2.5 mg 02/02/24 09:00 02/02/24 08:21 Lisinopril 5 Mg Tablet PO 2.5 mg DAILY TRAVIS Administration Metoprolol Tartrate 12.5 mg 02/02/24 09:00 02/02/24 20:53 Metoprolol Tartrate 25 Mg Tablet PO 12.5 mg BID TRAVIS Administration Morphine Sulfate 2 mg 02/02/24 10:14 02/02/24 11:06 Morphine 2 Mg/Ml Inj IVP 2 mg Q4H PRN Administration Omeprazole 20 mg 02/02/24 09:00 02/02/24 08:21 Omeprazole [address] PO 20 mg DAILY TRAVIS Administration Sodium Chloride 5 ml 02/02/24 09:00 02/02/24 20:53 Sodium Chloride 0.9 % (Flush) 10 Ml Syringe IVF 5 ml BID TRAVIS Administration Discontinued Medications Generic Name Dose Route Start Last Admin Trade Name Caitlyn PRN Reason Stop Dose Admin Hydromorphone HCl 0.5 mg 02/01/24 23:15 02/01/24 23:39 Hydromorphone 0.5 Mg/0.5 Ml Inj IVP 02/01/24 23:16 0.5 mg ONCE ONE Administration Piperacillin Sod/Tazobactam 100 mls @ 100 mls/hr 02/01/24 22:36 02/01/24 23:39 Sod 3.375 gm/ Sodium Chloride IVPB 02/01/24 22:37 Infused ONCE ONE Infusion Piperacillin Sod/Tazobactam 100 mls @ 200 mls/hr 02/02/24 05:00 02/02/24 12:24 Sod 3.375 gm/ Sodium Chloride IVPB Infused Q6H TRAVIS Infusion Medical Decision Making Lab Data Labs: Lab Results 02/01/24 Range/Units 22:50 WBC 15.50 H (4.50-11.00) K/uL RBC 4.51 (4.30-5.90) m/uL Hgb 12.5 L (13.5-17.5) gm/dL Hct 37.6 (37.0-53.0) % MCV 83 (80-100) fL MCH 28 (26-34) pg MCHC 33 (32-36) gm/dL RDW Coeff of Irma 13.7 (11.5-15.5) % Plt Count 433 (140-440) K/uL Neut % (Auto) 81.0 H (42.0-72.0) % Lymph % (Auto) 9.5 L (20-44) % White % (Auto) 7.5 (0.0-11.0) % Eos % (Auto) 0.8 (0.0-7.0) % Baso % (Auto) 0.2 (0.0-3.0) % Neut # (Auto) 12.60 H (1.7-7.0) K/uL Lymph # (Auto) 1.50 (0.90-2.90) K/uL White # (Auto) 1.20 H (0.00-0.90) K/UL Eos # (Auto) 0.10 (0.00-0.50) K/uL Baso # (Auto) 0.00 (0.00-0.30) K/uL Abs Immat Gran (auto) 0.20 (0.00-0.30) K/uL Imm/Tot Granulo (auto) 1.0 % Sodium 133 L (135-149) mmol/L Potassium 4.3 (3.6-5.1) mmol/L Chloride 99 (96-114) mmol/L Carbon Dioxide 26 (20-32) mmol/L Anion Gap 8 (7-15) mEq/L BUN 15 (7-30) mg/dL Creatinine 1.1 (0.5-1.5) mg/dL Estimated Creat Clear 82.72 Estimated GFR 80 ml/min Glucose 299 H (60-115) mg/dL Lactate 1.4 (0.5-1.9) mmol/L Calcium 9.4 (8.4-10.6) mg/dL Discharge Plan Discharge Clinical Impression: Cellulitis of face, Diabetes mellitus type 2, insulin dependent Patient Disposition: Admitted As Inpatient
[2024-02-01 22:14] VITALS: BP 121/81; PULSE 106; RESP 16; TEMP 37.2; O2SAT 96; BMI 26.5
--- NOTE | 2024-02-01 22:30 | CT_ITS ---
Patient: ARLETTE ANDINO Facility:?[facility] Patient ID:?[id number] Site Patient ID:?[id number]. Site :?[id number] Study:?CT-Facial W/IV-02/01/2024 11:55:27 PM Ordering Physician:JUAN CARLOS Final Report: INDICATION: Lip and submental swelling, likely abscess. TECHNIQUE: CT maxillofacial with 93 cc Isovue 370 IV contrast. COMPARISON: None. FINDINGS: Orbits and globes: Unremarkable. Globes are intact. No sign of intraorbital hemorrhage or emphysema. Sinuses: No acute or significant findings. Soft tissues: Swelling of the lower lip. Inflammatory stranding within the subcutaneous fat of the submental region. No rim enhancing fluid collection to suggest abscess identified. There is subtle inflammatory stranding of the floor of the mouth as well without confluent edema. Normal epiglottis. No prevertebral soft tissue swelling. Facial bones: No fractures or bone lesions. Specifically the nasal bones, temporomandibular joints, maxilla and mandible appear intact. IMPRESSION: Lower lip swelling, and subcutaneous inflammatory changes in the submental region, compatible with cellulitis. Slight involvement of the floor of the mouth. Early Alonso`s angina can not be entirely excluded. No abscess identified. Please note that all CT scans at this facility use dose modulation, iterative reconstruction, and/or weight-based dosing when appropriate to reduce radiation dose to as low as reasonably achievable. Dictated by Mat Liu MD @ 02/02/2024 1:02:11 AM Signed by:?Mat Liu MD @02/02/2024 1:02:11 AM (Electronic Signature)
[2024-02-01 22:56] LABS: Lactate* 1.4 mmol/L (0.5-1.9)
[2024-02-01] MEDS: PIPERACILLIN/TAZOBACTAM 3.375 GM in 0.9 % SODIUM CHLORIDE Mini-bag 100 ML IVPB (22:59)
[2024-02-01 23:10] LABS: Basophils Percent Auto 0.2 % (0.0-3.0); Eosinophils Percent Auto 0.8 % (0.0-7.0); Hematocrit 37.6 % (37.0-53.0); Hemoglobin* 12.5 gm/dL (13.5-17.5); Lymphocytes Percent Auto 9.5 % (20-44); Mean Corpuscular HGB Conc 33 gm/dL (32-36); Mean Corpuscular Hemoglobin 28 pg (26-34); Mean Corpuscular Volume 83 fL (80-100); Monocytes Percent Auto 7.5 % (0.0-11.0); Platelet Count* 433 K/uL (140-440); RDW Coefficient of Variation % 13.7 % (11.5-15.5); Red Blood Count 4.51 m/uL (4.30-5.90)
[2024-02-01 23:14] LABS: Chloride* 99 mmol/L (96-114)
[2024-02-01 23:15] LABS: Potassium* 4.3 mmol/L (3.6-5.1); Sodium* 133 mmol/L (135-149)
[2024-02-01 23:17] LABS: Creatinine* 1.1 mg/dL (0.5-1.5); Est. Creatinine Clearance* 82.72; Estimated Glomerular Filt Rate 80 ml/min
[2024-02-01 23:18] LABS: Anion Gap 8 mEq/L (7-15); Calcium* 9.4 mg/dL (8.4-10.6); Carbon Dioxide* 26 mmol/L (20-32); Glucose* 299 mg/dL (60-115)
[2024-02-01 23:20] LABS: Slide Review Reflex No
--- NOTE | 2024-02-01 23:35 | P.IMHP_ITS ---
Hospitalist- H&P: HPI History of Present Illness Date Seen: 02/01/24 Chief complaint: tooth infection Narrative: Akira Merchant is a 53 year old male with history of hospitalization for facial cellulitis 5 weeks ago returns with redevelopment of facial cellulitis over the last 2 weeks. He has not had a fever but he is having pain in his face. He was hospitalized here 5 weeks ago with facial cellulitis. Cultures grew MSSA. He required I and D by Dr. Hernandez. Hospitalized for a week. Discharged to home on Augmentin for 2 weeks. Finished that course of antibiotics around 2 weeks ago. Since then his facial infection is been getting worse. He is mostly edentulous but he has 1 mandibular incisor that is adjacent to the area of inflammation in his lower lip. He also has some broken off teeth. On his mandible. He has Crohn's disease and is on Remicade infusion every 6 weeks. Next infusion is February 11. He reports his Crohn's is mildly flaring upright now with some diarrhea and perhaps a little bleeding. He has diabetes and reports his blood sugars have been fairly well controlled. He continues to smoke but is thinking about giving it up.. Review of Systems Narrative: Review of systems is unremarkable except as noted above [facility] Medical History (Updated 02/01/24 @ 23:54 by Jerad Saleh MD) Smoking ?F17.200 - Nicotine dependence, unspecified, uncomplicated (ICD-10) Dental decay ?K02.9 - Dental caries, unspecified (ICD-10) Facial abscess ?L02.01 - Cutaneous abscess of face (ICD-10) Methamphetamine abuse ?F15.10 - Other stimulant abuse, uncomplicated (ICD-10) Tobacco dependence ?F17.200 - Nicotine dependence, unspecified, uncomplicated (ICD-10) Renal insufficiency ?N28.9 - Disorder of kidney and ureter, unspecified (ICD-10) Crohn's colitis ?K50.10 - Crohn's disease of large intestine without complications (ICD-10) Diabetes mellitus type 2, insulin dependent ?E11.9 - Type 2 diabetes mellitus without complications (ICD-10) ?Z79.4 - intermodal owner operator truck driver (current) use of insulin (ICD-10) Hyperlipidemia ?E78.5 - Hyperlipidemia, unspecified (ICD-10) Ischemic cardiomyopathy ?I25.5 - Ischemic cardiomyopathy (ICD-10) CAD (coronary artery disease) ?I25.10 - Atherosclerotic heart disease of [place] coronary artery without angina pectoris (ICD-10) Hypertension ?I10 - Essential (primary) hypertension (ICD-10) Crohn's disease ?K50.90 - Crohn's disease, unspecified, without complications (ICD-10) Surgical History Presence of coronary angioplasty implant and graft ?Z95.5 - Presence of coronary angioplasty implant and graft (ICD-10) Social History (Updated 02/01/24 @ 23:44 by Jerad Saleh MD) Narrative: He lives alone in [place]. Is next door neighbor is Dilip Vallejo. He indicates that Dilip would be his healthcare power of criminal defense attorney. Code status is full. He continues to smoke cigarettes. He does not drink alcohol. Reports no recreational drug use. What is your current living situation?: I presently have a place to live Problems where you live: no known problems Problems where you live details: pt lives in [facility] In the past 12 months, utilities in danger of being shut off: no In past 12 months, lack of transportation kept you from medical appts, meetings, work, or getting things needed for daily living: no In the past 12 mos, have been you worried that your food would run out before you had money to buy more?: never true In the past 12 mos, the food you bought just didn't last and you didn't have money to buy more?: never true Highest level of school completed/degree received: 11th grade Smoking Status: Current every day smoker What tobacco products do you use: cigarettes Years smoked: 15 Do you use any of these nicotine containing products: None Second hand tobacco smoke exposure: Yes How often do you have a drink containing alcohol: never How often do you have six or more drinks on one occasion: Never AUDIT-C Alcohol total score: 0 Non-prescribed substance use: denies use Caffeine: Yes How often does anyone, including family, friends and others, physically hurt you : never How often does anyone, including family, friends and others, insult or talk down to you: never How often does anyone, including family, friends and others, threaten you with harm: never How often does anyone, including family, friends and others, scream or curse at you: never service: No Meds Home Medications and Allergies Home Medications Medication Instructions Recorded Confirmed Type acetaminophen 500 mg tablet 1,000 mg PO Q6H PRN 12/27/23 02/01/24 History aspirin 81 mg capsule 81 mg PO DAILY 12/27/23 02/01/24 History atorvastatin 40 mg tablet 40 mg PO DAILY 12/27/23 02/01/24 History diphenhydramine HCl 25 mg tablet 25 mg PO QPM 12/27/23 02/01/24 History lisinopril 2.5 mg tablet 2.5 mg PO DAILY 12/27/23 02/01/24 History metoprolol tartrate 25 mg tablet 12.5 mg PO BID 12/27/23 02/01/24 History pantoprazole 40 mg granules 40 mg PO DAILY 12/27/23 02/01/24 History delayed-release for susp in packet Home Medication Comments: Patient was on lisinopril and metoprolol but ran out in the last couple weeks Allergies Allergy/AdvReac Type Severity Reaction Status Date / Time oxycodone [From OxyContin] Allergy Intermediate Verified 01/09/24 09:32 Exam Narrative: Exam Narrative: He is alert and appears in no obvious distress. He gives his own history. Eyes normal. Oropharynx is mostly edentulous. He has 1 mandibular incisor on the left which is adjacent to the inflamed mucosa of his lower lip was also some superficial mucosal changes possibly he has slight ulceration. Is also a got fractured incisors on his mandible. Oropharynx is otherwise unremarkable. He has ulceration on the left side of his lower lip. This was reportedly cultured. Reports this area has been draining some pus the fluid. He has moderate swelling of his lower lip especially on left side. Mild to moderate swelling over his chin below the lower lip. There is also a little bit of swelling just under the mentum. I do not palpate any area of fluctuance. Neck is supple without adenopathy. No stridor. Respirations are clear to auscultation. Cardiovascular: S1, S2, regular rate and rhythm. No murmur gallop rub. Abdomen: Bowel sounds are active. Abdomen is soft. Has mild diffuse tenderness in his abdomen which he says is consistent with his recent mild flare of his Crohn's disease. He reports no abdominal pain but just some mild tenderness. He moves all 4 extremities well. Good capillary refill good peripheral pulses no edema no rash except on his face Const: Vital Signs, click to edit/add: Vital Signs - 24 hr 02/01/24 22:14 Temperature 98.9 F Pulse Rate [Pulse Oximeter] 106 H Respiratory Rate 16 Blood Pressure [Ri ght Upper Arm] 121/81 Pulse Oximetry 96 Oxygen Delivery Me thod Room Air Documenting provider has reviewed patient's vital signs: yes Hospitalist - H&P: Result Labs Labs: Short CBC 02/01/24 Range/Units 22:50 WBC 15.50 H (4.50-11.00) K/uL Hgb 12.5 L (13.5-17.5) gm/dL Hct 37.6 (37.0-53.0) % Plt Count 433 (140-440) K/uL BMP 02/01/24 22:50 Sodium 133 L Potassium 4.3 Chloride 99 Carbon Dioxide 26 Creatinine 1.1 Glucose 299 H Calcium 9.4 Assessment and Plan Assessment and plan (1) Facial abscess: Problem comment: Suspect facial abscess, recurrent. Initiate treatment for MSSA with Zosyn. Await culture. MRSA nasal swab. Obtain facial CT to evaluate for abscess. If abscess is present consult Dr. Hernandez. Status: Acute (2) Lip abscess: Status: Acute (3) Cellulitis of face: Problem comment: On last admission grew MSSA. Discharged on Augmentin. Infection almost cleared and then got worse after stopping Augmentin. Consider repeat infectious disease consult Status: Acute (4) Hypertension: Problem comment: Restart lisinopril and metoprolol Status: Chronic (5) Diabetes mellitus type 2, insulin dependent: Problem comment: Continue home insulin and sliding scale insulin and monitor blood sugars Status: Chronic (6) Crohn's colitis: Problem comment: Plan continued Remicade infusions. Likely causing some immunosuppression Status: Chronic (7) Ischemic cardiomyopathy: Problem comment: Monitor for symptoms. Continue Lisinopril, metoprolol, aspirin, statin Status: Chronic (8) Dental decay: Problem comment: Needs a dentist. Needs to have his remaining tooth removed. Status: Acute (9) Smoking: Problem comment: Encouraged smoking cessation. He is open to this. Reports he does not need nicotine replacement Status: Acute Plan Patient is admitted to the hospital for recurrent facial cellulitis and abscess. Restart IV antibiotics. Evaluate for abscess with CT. Consult ENT if necessary. Consult Infectious Disease pending cultures. Total time spent today is 60 minutes, 40 minutes in coordination of care discussing with patient and other providers ongoing evaluation management of facial cellulitis
[2024-02-01] MEDS: HYDROmorphone 0.5 mg/0.5 ml inj IVP (23:39)
[2024-02-02] VITALS (11 sets, daily range): BP systolic 104–136; BP diastolic 68–95; PULSE 89–107; RESP 16–18; TEMP 36.7–37.7; O2SAT 92–98; BMI 25.1
[2024-02-02 00:03] LABS: Blood Urea Nitrogen* 15 mg/dL (7-30)
[2024-02-02] MEDS: ACETAMINOPHEN 325 MG TABLET 650 MG PO ×2 (01:33→08:21)
[2024-02-02] MEDS: PIPERACILLIN/TAZOBACTAM 3.375 GM in 0.9 % SODIUM CHLORIDE Mini-bag 100 ML IVPB ×2 (04:39→11:29)
--- NOTE | 2024-02-02 06:02 | PC.NURSE ---
Pt returns to floor with facial cellulitis. Was discharged five weeks ago. No abscess present. Lower lip swollen. Afebrile. IND in room
[2024-02-02 06:28] LABS: Basophils Percent Auto 0.2 % (0.0-3.0); Eosinophils Percent Auto 1.5 % (0.0-7.0); Hematocrit 34.5 % (37.0-53.0); Hemoglobin* 11.4 gm/dL (13.5-17.5); Immature Granulocytes Pct Auto 0.1 %; Lymphocytes Percent Auto 10.1 % (20-44); Mean Corpuscular HGB Conc 33 gm/dL (32-36); Mean Corpuscular Hemoglobin 28 pg (26-34); Mean Corpuscular Volume 84 fL (80-100); Monocytes Percent Auto 7.3 % (0.0-11.0); Neutrophils Percent Auto 80.8 % (42.0-72.0); Platelet Count* 393 K/uL (140-440); RDW Coefficient of Variation % 13.6 % (11.5-15.5); Red Blood Count 4.13 m/uL (4.30-5.90); White Blood Count* 16.47 K/uL (4.50-11.00)
[2024-02-02 06:29] LABS: Slide Review Reflex No
[2024-02-02 06:47] LABS: Chloride* 104 mmol/L (96-114); Potassium* 3.8 mmol/L (3.6-5.1); Sodium* 134 mmol/L (135-149)
[2024-02-02 06:50] LABS: Creatinine* 0.9 mg/dL (0.5-1.5); Estimated Glomerular Filt Rate 102 ml/min
[2024-02-02 06:51] LABS: Anion Gap 7 mEq/L (7-15); Blood Urea Nitrogen* 15 mg/dL (7-30); Carbon Dioxide* 23 mmol/L (20-32); Glucose* 188 mg/dL (60-115)
[2024-02-02] MEDS: INSULIN ASPART 100 UNIT/ML SUBCUT ×7 (08:18→20:54)
[2024-02-02] MEDS: METOPROLOL TARTRATE 25 MG TABLET 12.5 MG PO ×2 (08:20→20:53)
[2024-02-02] MEDS: SODIUM CHLORIDE 0.9 % (FLUSH) 10 ML SYRINGE 5 ML IVF ×2 (08:21→20:53)
[2024-02-02] MEDS: OMEPRAZOLE 20 MG CAPSULE DR PO (08:21)
[2024-02-02] MEDS: ATORVASTATIN CALCIUM 40 MG TABLET PO (08:21)
[2024-02-02] MEDS: lisinopriL 5 MG TABLET 2.5 MG PO (08:21)
[2024-02-02] MEDS: ASPIRIN 81 MG TABLET EC PO (08:32)
[2024-02-02] MEDS: MORPHINE 2 MG/ML inj IVP (11:06)
--- NOTE | 2024-02-02 12:18 | P.IMPN_ITS ---
Progress Note: A&P Assessment and plan (1) Cellulitis of face: Problem details: Perioral area, lower lip without CT findings of abscess Recurrent, possibly never resolved, worsened since off oral antibiotic. Last admission (12/27/23), grew MSSA - initially treated with Zosyn and vanco, then switched to Ancef then Unasyn, then oral Augmentin, per ENT and ID recommendations S/p I&D with irrigation and packing of submental and lip abscess on 12/31 Leukocytosis with left shift, afebrile, BC x2 pending, wound culture pending, Gram stain negative, MRSA pending CT shows lower lip swelling, subcutaneous inflammatory changes in the submental region, compatible with cellulitis. No abscess identified. Mention of possible early Alonso's angina not being entirely excluded. - discussed with Dr. Hernandez this morning, in absence of sublingual swelling, likely not Ludwigs. Continue IV antibiotics. Uncontrolled diabetes complicating Will switch Zosyn to Unasyn per previous ID recommendations on 01/01. Consider re-consult ID pending clinical response Pain management as needed Status: Acute (2) Hypertension: Problem details: Continue lisinopril and metoprolol Status: Chronic (3) Diabetes mellitus type 2, insulin dependent: Problem details: A1c 10.4 in December Continue home insulin and sliding scale insulin and monitor blood sugars Status: Chronic (4) Crohn's colitis: Problem details: Plan continued Remicade infusions. Likely causing some immunosuppression Status: Chronic (5) Ischemic cardiomyopathy: Problem details: Monitor for symptoms. Continue Lisinopril, metoprolol, aspirin, statin Status: Chronic (6) Dental decay: Problem details: Needs a dentist. Needs to have his remaining tooth removed. Status: Acute (7) Smoking: Problem details: Encouraged smoking cessation Status: Acute Time Spent With Patient Total time spent: Total time spent caring for the patient today was 45 minutes. This includes time spent for the visit reviewing the chart, time spent during the visit, time spent after the visit and documentation and planning in coordination of care. Subjective Date Seen: 02/02/24 Interval history: Patient admitted last night. Reports no significant change this morning. Swelling of lower lip unchanged. No difficulty swallowing. No fevers overnight. Patient is still living in [place], in a camper, on his friends land. 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 Denies recent facial injury or picking at scabs. Smokes tobacco, does not chew tobacco. Exam Narrative: Exam Narrative: PHYSICAL EXAM General: Unkempt male, NAD HEENT: Normocephalic, no swelling of maxillary, mandibular region. Swelling noted submental. On oral exam, poor dentition, few teeth remaining, no drainage. No swelling of tongue, ventral surface examined, or palate. Cardiovascular: RRR, S1S2. No pitting edema Pulmonary: CTA bilaterally without rhonchi, rales, expiratory wheezes. No dyspnea Neurological: Alert, answering questions appropriately, cranial nerves intact, no focal findings Extremities: No gross joint deformity or swelling. AROMI. Neurovascularly intact Skin: Warm, dry. In general, nail beds, skin dirty Const: Vital Signs, click to edit/add: Vital Signs - 24 hr 02/01/24 22:14 02/02/24 00:19 02/02/24 00:30 Temperature 98.9 F 98.4 F Pulse Rate [Left R adial] Pulse Rate [Pulse Oximeter] 106 H 98 Respiratory Rate 16 16 Blood Pressure [Le ft Arm] Blood Pressure [Ri ght Upper Arm] 121/81 118/89 Pulse Oximetry 96 95 96 [facility] 02/02/24 01:33 02/02/24 01:40 02/02/24 01:42 Temperature 98.1 F 98.1 F 98.1 F Pulse Rate [Left R adial] 91 91 Pulse Rate [Pulse Oximeter] Respiratory Rate 16 16 Blood Pressure [Le ft Arm] 136/95 H 136/95 H Blood Pressure [Ri ght Upper Arm] Pulse Oximetry 98 98 [facility] Room Air 02/02/24 01:42 02/02/24 01:58 02/02/24 07:00 Temperature 98.1 F 98.2 F Pulse Rate [Left R adial] 91 100 Pulse Rate [Pulse Oximeter] Respiratory Rate 16 16 18 Blood Pressure [Le ft Arm] 136/95 H 134/95 H Blood Pressure [Ri ght Upper Arm] Pulse Oximetry 98 98 96 [facility] Room Air Room Air 02/02/24 11:00 Temperature 98.5 F Pulse Rate [Left R adial] 89 Pulse Rate [Pulse Oximeter] Respiratory Rate 16 Blood Pressure [Le ft Arm] 113/79 Blood Pressure [Ri ght Upper Arm] Pulse Oximetry 95 Oxygen Delivery Me thod Room Air Labs Labs: Laboratory Results - last 24 hr 02/01/24 02/02/24 22:50 06:00 WBC 15.50 H 16.47 H RBC 4.51 4.13 L Hgb 12.5 L 11.4 L Hct 37.6 34.5 L MCV 83 84 MCH 28 28 MCHC 33 33 RDW Coeff of Irma 13.7 13.6 Plt Count 433 393 Neut % (Auto) 81.0 H 80.8 H Lymph % (Auto) 9.5 L 10.1 L [place] % (Auto) 7.5 7.3 Eos % (Auto) 0.8 1.5 Baso % (Auto) 0.2 0.2 Neut # (Auto) 12.60 H 13.30 H Lymph # (Auto) 1.50 1.70 [place] # (Auto) 1.20 H 1.20 H Eos # (Auto) 0.10 0.20 Baso # (Auto) 0.00 0.00 Abs Immat Gran (auto) 0.20 0.00 Imm/Tot Granulo (auto) 1.0 0.1 Sodium 133 L 134 L Potassium 4.3 3.8 Chloride 99 104 Carbon Dioxide 26 23 Anion Gap 8 7 BUN 15 15 Creatinine 1.1 0.9 Estimated Creat Clear 82.72 101.10 Estimated GFR 80 102 Glucose 299 H 188 H Lactate 1.4 Calcium 9.4 9.0 C-Reactive Protein 22.0 H
[2024-02-02] MEDS: HYDROCODONE/ACETAMIN 7.5-325 TABLET 1 TAB PO ×2 (14:56→20:53)
[2024-02-02] MEDS: AMPICILLIN/SULBACTAM 3 GM in 0.9 % SODIUM CHLORIDE Mini-bag 100 ML IVPB ×2 (16:48→22:40)
--- NOTE | 2024-02-02 18:33 | PC.NURSE ---
End of Shift: The patient is cooperative... flat affect with minimal conversation. VSS on RA. The patient reports 6-8 out of pain in lower lip. PRN morphine and norco given. The bottom of the lip is swollen... reduced somewhat throughout the day, very dry yellow/dark dried skin. The patient reports eating and drinking fine despite the pain and swelling. Blood sugars in he 200's throughout the day, insulin was given. PO intake and fluid intake is reassuring. IV ax infused throughout the day. Calls appropriately. Gavi BELTRE BSN
[2024-02-03] VITALS (7 sets, daily range): BP systolic 102–125; BP diastolic 64–81; PULSE 80–96; RESP 16–18; TEMP 36.3–38; O2SAT 93–96
[2024-02-03] MEDS: AMPICILLIN/SULBACTAM 3 GM in 0.9 % SODIUM CHLORIDE Mini-bag 100 ML IVPB ×4 (03:17→21:55)
[2024-02-03] MEDS: HYDROCODONE/ACETAMIN 7.5-325 TABLET 1 TAB PO ×3 (03:18→17:36)
--- NOTE | 2024-02-03 06:11 | PC.NURSE ---
Shift note: Pt continue to have swelling upper lip. Alert and oriented. Pain level has been rated at 6. Pt had low grade fever of 100 at 1900 and complained of pain of 6. [place] 1 tab given and temperature dropped to 98.9 at 1930. Pt appeared unclean and accepted to have shower this morning.
[2024-02-03 06:35] LABS: Basophils Percent Auto 0.1 % (0.0-3.0); Eosinophils Percent Auto 1.2 % (0.0-7.0); Hematocrit 32.3 % (37.0-53.0); Hemoglobin* 10.8 gm/dL (13.5-17.5); Immature Granulocytes Pct Auto 1.1 %; Lymphocytes Percent Auto 12.2 % (20-44); Mean Corpuscular HGB Conc 33 gm/dL (32-36); Mean Corpuscular Hemoglobin 28 pg (26-34); Mean Corpuscular Volume 84 fL (80-100); Monocytes Percent Auto 7.4 % (0.0-11.0); Platelet Count* 364 K/uL (140-440); RDW Coefficient of Variation % 13.6 % (11.5-15.5); Red Blood Count 3.83 m/uL (4.30-5.90); White Blood Count* 13.61 K/uL (4.50-11.00)
[2024-02-03 06:44] LABS: Slide Review Reflex No
[2024-02-03 06:55] LABS: Chloride* 106 mmol/L (96-114); Potassium* 3.8 mmol/L (3.6-5.1); Sodium* 134 mmol/L (135-149)
[2024-02-03 06:58] LABS: Creatinine* 0.9 mg/dL (0.5-1.5); Estimated Glomerular Filt Rate 102 ml/min
[2024-02-03 06:59] LABS: Anion Gap 3 mEq/L (7-15); Blood Urea Nitrogen* 18 mg/dL (7-30); Calcium* 8.9 mg/dL (8.4-10.6); Carbon Dioxide* 25 mmol/L (20-32); Glucose* 148 mg/dL (60-115)
[2024-02-03 07:24] LABS: C Reactive Protein* 15.9 mg/dL (0.5-1.0)
[2024-02-03] MEDS: INSULIN ASPART 100 UNIT/ML SUBCUT ×6 (08:15→21:53)
[2024-02-03] MEDS: MORPHINE 2 MG/ML inj IVP (08:17)
[2024-02-03] MEDS: SODIUM CHLORIDE 0.9 % (FLUSH) 10 ML SYRINGE 5 ML IVF ×2 (08:17→21:55)
[2024-02-03] MEDS: OMEPRAZOLE 20 MG CAPSULE DR PO (08:19)
[2024-02-03] MEDS: ATORVASTATIN CALCIUM 40 MG TABLET PO (08:20)
[2024-02-03] MEDS: METOPROLOL TARTRATE 25 MG TABLET 12.5 MG PO ×2 (08:20→21:55)
[2024-02-03] MEDS: ASPIRIN 81 MG TABLET EC PO (08:20)
[2024-02-03] MEDS: lisinopriL 5 MG TABLET 2.5 MG PO (08:20)
--- NOTE | 2024-02-03 15:12 | P.IMPN_ITS ---
Progress Note: A&P Assessment and plan (1) Cellulitis of face: Problem details: Perioral area, lower lip without CT findings of abscess. Recurrent, possibly never resolved, worsened since off oral antibiotic. Last admission (12/27/23), grew MSSA - initially treated with Zosyn and vanco, then sw itched to Ancef then Unasyn, then oral Augmentin, per ENT and ID recommendations. S/p I&D with irrigation and packing of submental and lip abscess on 12/31. Leukocytosis with left shift, afebrile, BC x2 pending, wound culture grew MRSA resistant to erythromycin and ciprofloxacin and sensitive to other medications. CT shows lower lip swelling, subcutaneous inflammatory changes in the submental region, compatible with cellulitis. No abscess identified. Mention of possible early Alonso's angina not being entirely excluded. - discussed with Dr. Hernandez this morning, in absence of sublingual swelling, likely not Ludwigs. Continue IV cefazolin. Uncontrolled diabetes complicating. Switched Zosyn to Unasyn per previous ID recommendations on 01/01. Consider re- consult ID pending clinical response. Pain management as needed. Status: Acute (2) Hypertension: Problem details: Continue lisinopril and metoprolol. Status: Chronic (3) Diabetes mellitus type 2, insulin dependent: Problem details: A1c 10.4 in December. Continue home insulin and sliding scale insulin and monitor blood sugars Status: Chronic (4) Crohn's colitis: Problem details: Plan continued Remicade infusions. Likely causing some immunosuppression. Status: Chronic (5) Ischemic cardiomyopathy: Problem details: Monitor for symptoms. Continue Lisinopril, metoprolol, aspirin, statin Status: Chronic (6) Dental decay: Problem details: Needs a dentist. Needs to have his remaining tooth removed - most likely source of reinfection. Status: Acute (7) Smoking: Problem details: Encouraged smoking cessation. Status: Acute Plan 1. Reviewed impression with patient 2. Continue current treatment as specified. Time Spent With Patient Total time spent: 30 minutes Subjective Date Seen: 02/03/24 Interval history: Hospital day 2. Lower lip swelling is decreasing. Patient notes drainage from lower lip. Denies fever, rigors, diaphoresis. Claims he completed the course of oral antibiotics and his lip immediately started to slowly swell and hurt more. He finally came in couple nights ago and is responding to IV antibiotics at this time. Patient is still living in [place], in a camper, on his friends land. 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 Denies recent facial injury or picking at scabs. Smokes tobacco, does not chew tobacco. Exam Narrative: Exam Narrative: Examine him in his hospital room. Vision and hearing adequate. Alert and oriented to self, place, time, situation. Friendly, articulate, cooperative. Neck is supple. Poor dentition with multiple missing teeth and dental caries noted. Possibly source of recurrent infection. Lungs are clear to auscultation. Heart tones with regular rhythm. Abdomen benign. Independent in transfer, station, and gait. No focal motor neurologic deficit. Const: Vital Signs, click to edit/add: Vital Signs - 24 hr 02/02/24 19:00 02/02/24 22:44 02/02/24 22:44 Temperature 100 F H 98.9 F Pulse Rate [Left R adial] 107 H 100 100 Respiratory Rate 16 16 16 Blood Pressure [Le ft Arm] 104/68 125/73 Pulse Oximetry 92 95 Oxygen Delivery Me thod Room Air Room Air 02/03/24 03:00 02/03/24 07:46 02/03/24 11:54 Temperature 99.5 F 98.0 F 98.5 F Pulse Rate [Left R adial] 96 90 80 Respiratory Rate 16 18 16 Blood Pressure [Le ft Arm] 115/78 125/81 122/79 Pulse Oximetry 93 95 96 Oxygen Delivery Me thod Room Air Room Air Room Air 02/03/24 14:31 Temperature 97.8 F Pulse Rate [Left R adial] 82 Respiratory Rate 16 Blood Pressure [Le ft Arm] 104/71 Pulse Oximetry 95 Oxygen Delivery Me thod Room Air Labs Labs: Laboratory Results - last 24 hr 02/03/24 05:49 WBC 13.61 H RBC 3.83 L Hgb 10.8 L Hct 32.3 L MCV 84 MCH 28 MCHC 33 RDW Coeff of Irma 13.6 Plt Count 364 Neut % (Auto) 78.0 H Lymph % (Auto) 12.2 L [place] % (Auto) 7.4 Eos % (Auto) 1.2 Baso % (Auto) 0.1 Neut # (Auto) 10.60 H Lymph # (Auto) 1.70 [place] # (Auto) 1.00 H Eos # (Auto) 0.20 Baso # (Auto) 0.00 Abs Immat Gran (auto) 0.10 Imm/Tot Granulo (auto) 1.1 Sodium 134 L Potassium 3.8 Chloride 106 Carbon Dioxide 25 Anion Gap 3 L BUN 18 Creatinine 0.9 Estimated Creat Clear 101.10 Estimated GFR 102 Glucose 148 H Calcium 8.9 C-Reactive Protein 15.[address] scan - face: Radiologist's impression: 02/02/2024 IMPRESSION: Lower lip swelling, and subcutaneous inflammatory changes in the submental region, compatible with cellulitis. Slight involvement of the floor of the mouth. Early Alonso`s angina can not be entirely excluded. No abscess identified.
[2024-02-03 16:15] LABS: Fecal Occult Blood* Positive (Negative)
--- NOTE | 2024-02-03 16:35 | PC.NURSE ---
Pt alert and oriented. Pt had complaints of pain ranging from 4-7; see EMAR for intervention.Pt up independently in room. Pt's guac sample collected and brought to lab.
[2024-02-03 19:30] LABS: H pylori Ag Stool* Negative (Negative)
[2024-02-03] MEDS: ACETAMINOPHEN 325 MG TABLET 650 MG PO (19:55)
[2024-02-03] MEDS: 0.9 % SODIUM CHLORIDE 250 ml IV (22:14)
[2024-02-04] VITALS (8 sets, daily range): BP systolic 98–114; BP diastolic 62–78; PULSE 88–99; RESP 18–20; TEMP 36–38.1; O2SAT 93–95
[2024-02-04] MEDS: HYDROCODONE/ACETAMIN 7.5-325 TABLET 1 TAB PO ×4 (02:25→20:59)
[2024-02-04] MEDS: AMPICILLIN/SULBACTAM 3 GM in 0.9 % SODIUM CHLORIDE Mini-bag 100 ML IVPB ×2 (03:41→09:37)
--- NOTE | 2024-02-04 05:09 | PC.NURSE ---
Patient alert, oriented and cooperative with cares. Remains on contact precautions. Independent in room. PRN Tylenol given for temp of 100.4. PRN [place] given for pain rated 6/10. Stool h. pylori negative. ?
[2024-02-04 06:16] LABS: Basophils Absolute Auto 0.02 K/uL (0.00-0.30); Basophils Percent Auto 0.2 % (0.0-3.0); Eosinophils Absolute Auto 0.16 K/uL (0.00-0.50); Eosinophils Percent Auto 1.6 % (0.0-7.0); Hematocrit 29.1 % (37.0-53.0); Hemoglobin* 9.6 gm/dL (13.5-17.5); Immature Granulocytes Abs Auto 0.12 K/uL (0.00-0.30); Immature Granulocytes Pct Auto 1.2 %; Lymphocytes Percent Auto 14.3 % (20-44); Mean Corpuscular HGB Conc 33 gm/dL (32-36); Mean Corpuscular Hemoglobin 28 pg (26-34); Mean Corpuscular Volume 84 fL (80-100); Monocytes Percent Auto 8.4 % (0.0-11.0); Neutrophils Percent Auto 74.3 % (42.0-72.0); Platelet Count* 310 K/uL (140-440); RDW Coefficient of Variation % 13.5 % (11.5-15.5); Red Blood Count 3.45 m/uL (4.30-5.90); White Blood Count* 10.03 K/uL (4.50-11.00)
[2024-02-04 06:17] LABS: Slide Review Reflex No
[2024-02-04 06:29] LABS: Chloride* 104 mmol/L (96-114); Potassium* 3.8 mmol/L (3.6-5.1); Sodium* 136 mmol/L (135-149)
[2024-02-04 06:32] LABS: Anion Gap 7 mEq/L (7-15); Blood Urea Nitrogen* 18 mg/dL (7-30); Carbon Dioxide* 25 mmol/L (20-32); Est. Creatinine Clearance* 90.99; Estimated Glomerular Filt Rate 90 ml/min
[2024-02-04 06:33] LABS: Calcium* 8.7 mg/dL (8.4-10.6); Glucose* 94 mg/dL (60-115)
[2024-02-04 06:35] LABS: C Reactive Protein* 8.5 mg/dL (0.5-1.0)
[2024-02-04] MEDS: ASPIRIN 81 MG TABLET EC PO (08:39)
[2024-02-04] MEDS: OMEPRAZOLE 20 MG CAPSULE DR PO (08:39)
[2024-02-04] MEDS: ATORVASTATIN CALCIUM 40 MG TABLET PO (08:39)
[2024-02-04] MEDS: lisinopriL 5 MG TABLET 2.5 MG PO (08:39)
[2024-02-04] MEDS: METOPROLOL TARTRATE 25 MG TABLET 12.5 MG PO ×2 (08:39→20:59)
[2024-02-04] MEDS: INSULIN ASPART 100 UNIT/ML SUBCUT ×5 (08:41→21:00)
[2024-02-04] MEDS: SODIUM CHLORIDE 0.9 % (FLUSH) 10 ML SYRINGE 5 ML IVF ×2 (08:42→21:02)
--- NOTE | 2024-02-04 11:13 | PM.IMPN1 ---
Progress Note: A&P Assessment and plan (1) Cellulitis of face: Problem details: Perioral area, lower lip without CT findings of abscess. Recurrent, possibly never resolved, worsened since off oral antibiotic. Last admission (12/27/23), grew MSSA - initially treated with Zosyn and vanco, then switched to Ancef then Unasyn, then oral Augmentin, per ENT and ID recommendations. S/p I&D with irrigation and packing of submental and lip abscess on 12/31. Leukocytosis with left shift, afebrile, BC x2 pending, wound culture grew MRSA resistant to erythromycin and ciprofloxacin and sensitive to other medications. CT shows lower lip swelling, subcutaneous inflammatory changes in the submental region, compatible with cellulitis. No abscess identified. Mention of possible early Alonso's angina not being entirely excluded. - discussed with Dr. Hernandez this morning, in absence of sublingual swelling, likely not Ludwigs. Continue IV cefazolin. Uncontrolled diabetes complicating. Switched Zosyn to Unasyn per previous ID recommendations on 01/01. Given improvement clinically and biochemically, will switch to oral Augmentin and oral doxycycline for another 10 days. Will start empiric probiotic as well. Consider re-consult ID pending clinical response. Pain management as needed. Will need oral surgery assessment for possible extraction of remaining teeth. Status: Acute (2) Hypertension: Problem details: Continue lisinopril and metoprolol. Status: Chronic (3) Diabetes mellitus type 2, insulin dependent: Problem details: A1c 10.4 in December. Continue home insulin and sliding scale insulin and monitor blood sugars Status: Chronic (4) Crohn's colitis: Problem details: Plan continued Remicade infusions. Likely causing some immunosuppression. Status: Chronic (5) Ischemic cardiomyopathy: Problem details: Monitor for symptoms. Continue with Lisinopril, metoprolol, aspirin, statin. Status: Chronic (6) Dental decay: Problem details: Needs a dentist or Oral surgery. Needs to have his remaining tooth removed - most likely source of reinfection. Status: Acute (7) Smoking: Problem details: Encouraged smoking cessation. Status: Acute Plan 1. Reviewed with patient 2. Answered his questions 3. If tolerating oral antibiotics and continue to do well may possibly discharge as early as tomorrow Time Spent With Patient Total time spent: 35 minute Subjective Date Seen: 02/04/24 Interval history: Hospital day 3, admission date 02/02/2024. Lower lip pain and swelling continues decreasing. Patient notes minimal drainage from lower lip. Denies fever, rigors, diaphoresis. Claims he completed the course of oral antibiotics and his lip immediately started to slowly swell and hurt more. He finally came in couple nights ago and is responding to IV antibiotics at this time. Patient is still living in [place], in a camper, on his friends land. 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 Denies recent facial injury or picking at scabs. Smokes tobacco, does not chew tobacco. Poor dentition. Dental caries. Multiple missing teeth. Exam Narrative: Exam Narrative: Examine him in his hospital room. Appears comfortable and in no acute distress. Vision and hearing are adequate. Alert and oriented to self, place, time, situation. Friendly, cooperative. Continues have a persistently swollen lower lip with induration and without fluctuance. Multiple missing teeth. Only 2 visible teeth. Dental caries. Const: Vital Signs, click to edit/add: Vital Signs - 24 hr 02/03/24 11:54 02/03/24 14:31 02/03/24 19:00 Temperature 98.5 F 97.8 F 100.4 F H Pulse Rate [Left R adial] 80 82 96 Respiratory Rate 16 16 18 Blood Pressure [Le ft Arm] 122/79 104/71 120/72 Pulse Oximetry 96 95 93 Oxygen Delivery Me thod Room Air Room Air Room Air 02/03/24 21:54 02/03/24 22:15 02/04/24 02:18 Temperature 97.7 F 97.4 F L 99.6 F Pulse Rate [Left R adial] 82 97 Respiratory Rate 17 18 Blood Pressure [Le ft Arm] 102/64 109/73 Pulse Oximetry 93 93 Oxygen Delivery Me thod Room Air Room Air 02/04/24 09:02 Temperature 99.8 F H Pulse Rate [Left R adial] 99 Respiratory Rate 20 Blood Pressure [Le ft Arm] 112/78 Pulse Oximetry 94 Oxygen Delivery Ca thod Room Air Labs Labs: Laboratory Results - last 24 hr 02/03/24 02/03/24 02/04/24 16:23 Unknown 06:05 WBC 10.03 RBC 3.45 L Hgb 9.6 L Hct 29.1 L MCV 84 MCH 28 MCHC 33 RDW Coeff of Irma 13.5 Plt Count 310 Neut % (Auto) 74.3 H Lymph % (Auto) 14.3 L [place] % (Auto) 8.4 Eos % (Auto) 1.6 Baso % (Auto) 0.2 Neut # (Auto) 7.50 H Lymph # (Auto) 1.40 [place] # (Auto) 0.80 Eos # (Auto) 0.16 Baso # (Auto) 0.02 Abs Immat Gran (auto) 0.12 Imm/Tot Granulo (auto) 1.2 Sodium 136 Potassium 3.8 Chloride 104 Carbon Dioxide 25 Anion Gap 7 BUN 18 Creatinine 1.0 Estimated Creat Clear 90.99 Estimated GFR 90 Glucose 94 Calcium 8.7 C-Reactive Protein 8.5 H Stool Occult Blood Positive Stool H. pylori Ag Negative
[2024-02-04] MEDS: LACTOBACILLUS ACIDOPHILUS 1 TABLET 2 TAB PO ×2 (12:24→17:35)
[2024-02-04] MEDS: ACETAMINOPHEN 325 MG TABLET 650 MG PO (15:08)
[2024-02-04] MEDS: AMOXICILLIN/CLAVULANATE 875 mg/125 mg TABLET PO (17:35)
--- NOTE | 2024-02-04 20:49 | PC.NURSE ---
End of shift [id number] - Pt alert, oriented, cooperative. Up independently in room, continent of bowel and bladder. Pt tolerating RA, regular diet, fluids. Pt reported pain in lower lip as 4-6/10 with medication used per MAR to maintain pain level at 5 or less during shift. Pt reported scant amount of serosanguineous drainage from lip, RN observed lower lip to be swollen, dry, and with scabs present. Pt appears to be resting comfortably in bed at end of shift.
[2024-02-04] MEDS: DOXYCYCLINE HYCLATE 100 MG PO (20:59)
[2024-02-05 03:00] VITALS: RESP 18
[2024-02-05] MEDS: ACETAMINOPHEN 325 MG TABLET 650 MG PO (03:56)
[2024-02-05 06:27] LABS: Basophils Absolute Auto 0.02 K/uL (0.00-0.30); Basophils Percent Auto 0.2 % (0.0-3.0); Eosinophils Absolute Auto 0.09 K/uL (0.00-0.50); Eosinophils Percent Auto 1.1 % (0.0-7.0); Hemoglobin* 9.7 gm/dL (13.5-17.5); Immature Granulocytes Abs Auto 0.02 K/uL (0.00-0.30); Immature Granulocytes Pct Auto 0.2 %; Lymphocytes Percent Auto 12.1 % (20-44); Mean Corpuscular HGB Conc 33 gm/dL (32-36); Mean Corpuscular Hemoglobin 28 pg (26-34); Mean Corpuscular Volume 84 fL (80-100); Monocytes Percent Auto 10.1 % (0.0-11.0); Neutrophils Percent Auto 76.3 % (42.0-72.0); Platelet Count* 309 K/uL (140-440); RDW Coefficient of Variation % 13.3 % (11.5-15.5); Red Blood Count 3.44 m/uL (4.30-5.90); White Blood Count* 8.32 K/uL (4.50-11.00)
[2024-02-05 06:30] LABS: Slide Review Reflex No
[2024-02-05 06:38] LABS: Chloride* 103 mmol/L (96-114); Potassium* 4.1 mmol/L (3.6-5.1); Sodium* 134 mmol/L (135-149)
[2024-02-05 06:41] LABS: Anion Gap 6 mEq/L (7-15); Blood Urea Nitrogen* 17 mg/dL (7-30); Carbon Dioxide* 25 mmol/L (20-32); Creatinine* 0.9 mg/dL (0.5-1.5); Estimated Glomerular Filt Rate 102 ml/min; Glucose* 130 mg/dL (60-115)
[2024-02-05 06:42] LABS: Calcium* 8.6 mg/dL (8.4-10.6)
--- NOTE | 2024-02-05 08:00 | PC.NURSE ---
[id number] Pt independent in room, slight temp increase to 100.4 temporal with 0300 vitals, decreased with prn tylenol. pain managed with oral pain medication. tolerating oral intake. some drainage noted to left lower lip.
[2024-02-05] MEDS: AMOXICILLIN/CLAVULANATE 875 mg/125 mg TABLET PO (08:12)
[2024-02-05] MEDS: DOXYCYCLINE HYCLATE 100 MG PO (08:12)
[2024-02-05] MEDS: LACTOBACILLUS ACIDOPHILUS 1 TABLET 2 TAB PO (08:12)
[2024-02-05] MEDS: ATORVASTATIN CALCIUM 40 MG TABLET PO (08:12)
[2024-02-05] MEDS: ASPIRIN 81 MG TABLET EC PO (08:12)
[2024-02-05] MEDS: lisinopriL 5 MG TABLET 2.5 MG PO (08:13)
[2024-02-05] MEDS: OMEPRAZOLE 20 MG CAPSULE DR PO (08:13)
[2024-02-05] MEDS: METOPROLOL TARTRATE 25 MG TABLET 12.5 MG PO (08:13)
[2024-02-05] MEDS: HYDROCODONE/ACETAMIN 7.5-325 TABLET 1 TAB PO (08:13)
[2024-02-05] MEDS: INSULIN ASPART 100 UNIT/ML SUBCUT (08:13)
[2024-02-05] MEDS: SODIUM CHLORIDE 0.9 % (FLUSH) 10 ML SYRINGE 5 ML IVF (08:14)
[2024-02-05 10:32] VITALS: BP 111/68; PULSE 88; RESP 16; TEMP 36.6; O2SAT 95
[2024-02-05] MEDS: CHLORHEXIDINE GLUCONATE 473 ML MOUTHWASH 15 ML SWISH/SPIT (12:13)
--- NOTE | 2024-02-05 13:03 | PC.NURSE ---
Discharge - Pt alert, oriented, cooperative. Up independently in room, tolerating RA and regular diet/fluids. Denies SOB, nausea and reports pain and swelling in lower lip to be improved. Pt reports scant discharge from lower lip, RN observed lip to be dry and edematous. Discharge education given, paperwork signed with pt verbalizing understanding. IV removed with catheter intact. Pt d/c'd to home with friend via wheelchair at approximately 1235.
--- NOTE | 2024-02-05 16:57 | P.DS_ITS ---
DS: Providers Provider Date Seen: 02/05/24 Date of admission: 02/01/24 23:30 Primary care physician: Not a Local Provider Admitting Clinician: Jerad Saleh MD Attending Physician on discharge: Pedro Miles MD Date of Discharge: 02/05/24 DS: Diagnosis Discharge Diagnosis (1) Cellulitis of face: Status: Acute Problem details: Perioral area, lower lip without CT findings of abscess. Recurrent, possibly never resolved, worsened since off oral antibiotic. Last admission (12/27/23), grew MSSA - initially treated with Zosyn and vanco, then switched to Ancef then Unasyn, then oral Augmentin, per ENT and ID recommendations. S/p I&D with irrigation and packing of submental and lip abscess on 12/31. Leukocytosis with left shift, afebrile, BC x2 pending, wound culture grew MRSA resistant to erythromycin and ciprofloxacin and sensitive to other medications. CT shows lower lip swelling, subcutaneous inflammatory changes in the submental region, compatible with cellulitis. No abscess identified. Mention of possible early Aolnso's angina not being entirely excluded. - discussed with Dr. Hernandez this morning, in absence of sublingual swelling, likely not Ludwigs. Continue IV cefazolin. Uncontrolled diabetes complicating. Switched Zosyn to Unasyn per previous ID recommendations on 01/01. Given improvement clinically and biochemically, will switch to oral Augmentin and oral doxycycline for another 10 days. Will start empiric probiotic as well. Consider re-consult ID pending clinical response. Pain management as needed. Will need oral surgery assessment for possible extraction of remaining teeth. (2) MSSA infection, non-invasive: Status: Acute Problem details: - lower lip (3) Dental decay: Status: Acute Problem details: Needs a dentist or Oral surgery. Needs to have his remaining tooth removed - most likely source of reinfection. (4) Smoking: Status: Acute Problem details: Encouraged smoking cessation. DS: Summary Hospital Course Hospital Course: Admission history of present illness: ?Akira Merchant is a 53 year old male with history of hospitalization for facial cellulitis 5 weeks ago returns with redevelopment of facial cellulitis over the last 2 weeks. He has not had a fever but he is having pain in his face. He was hospitalized here 5 weeks ago with facial cellulitis. Cultures grew MSSA. He required I and D by Dr. Hernandez. Hospitalized for a week. D ischarged to home on Augmentin for 2 weeks. Finished that course of antibiotics around 2 weeks ago. Since then his facial infection is been getting worse. He is mostly edentulous but he has 1 mandibular incisor that is adjacent to the area of inflammation in his lower lip. He also has some broken off teeth. On his mandible. He has Crohn's disease and is on Remicade infusion every 6 weeks. Next infusion is February 11. He reports his Crohn's is mildly flaring upright now with some diarrhea and perhaps a little bleeding. He has diabetes and reports his blood sugars have been fairly well controlled. He continues to smoke but is thinking about giving it up.? Please see diagnosis above for details of responsiveness to interventions undertaken during the course hospitalization and plans. Time Spent with Patient Time attestation: Total time spent providing and/or coordinating discharge services: Exam Narrative: Exam Narrative: Examine him in his hospital room. Appears comfortable and in no acute distress. Vision and hearing are adequate. Alert and oriented to self, place, time, situation. Friendly, cooperative. Continues have a persistently swollen lower lip with induration and without fluctuance. The erythema, warmth, and firmness of the induration is much improved even compared to yesterday. Multiple missing teeth. Only 2 visible teeth. Dental caries. Const: Vital Signs, click to edit/add: Vital Signs - 24 hr 02/04/24 17:36 02/04/24 19:00 02/04/24 23:00 Temperature 96.8 F L 98.1 F Pulse Rate [Left R adial] 88 Respiratory Rate 18 18 Blood Pressure [Le ft Arm] 114/75 Pulse Oximetry 95 Oxygen Delivery Me thod Room Air 02/05/24 03:00 02/05/24 10:32 Temperature 97.9 F Pulse Rate [Left R adial] 88 Respiratory Rate 18 16 Blood Pressure [Le ft Arm] 111/68 Pulse Oximetry 95 Oxygen Delivery Me thod Room Air DS: Data Data Completed and Pending Completed studies during hospitalization: Procedures Drainage of Face Subcutaneous Tissue and Fascia, Open Approach, Diagnostic (12/27/23) Drainage of Lower Lip, Open Approach, Diagnostic (12/27/23) Drainage of Oral Cavity and Throat, Open Approach (12/27/23) Excision of Face Subcutaneous Tissue and Fascia, Open Approach (12/27/23) Excision of Facial Muscle, Open Approach (12/27/23) Labs on day of discharge: Labs from last 24 hours 02/05/24 06:15 WBC 8.32 RBC 3.44 L Hgb 9.7 L Hct 29.0 L MCV 84 MCH 28 MCHC 33 RDW Coeff of Irma 13.3 Plt Count 309 Neut % (Auto) 76.3 H Lymph % (Auto) 12.1 L Carbon % (Auto) 10.1 Eos % (Auto) 1.1 Baso % (Auto) 0.2 Neut # (Auto) 6.30 Lymph # (Auto) 1.00 Carbon # (Auto) 0.80 Eos # (Auto) 0.09 Baso # (Auto) 0.02 Abs Immat Gran (auto) 0.02 Imm/Tot Granulo (auto) 0.2 Sodium 134 L Potassium 4.1 Chloride 103 Carbon Dioxide 25 Anion Gap 6 L BUN 17 Creatinine 0.9 Estimated Creat Clear 101.10 Estimated GFR 102 Glucose 130 H Calcium 8.6 Preliminary micro results at discharge 02/01/24 22:50 Blood Culture - Preliminary Blood NO GROWTH AFTER 72 HOURS 02/01/24 22:50 Blood Culture - Preliminary Blood NO GROWTH AFTER 72 HOURS Discharge Plan Discharge Disposition: Home, Self-Care Date of Admission: 02/01/24 23:30 Attending Provider on Discharge: Pedro Miles Primary Care Provider: Provider,Not a Local Condition: Improved Anticipated Discharge Date/Time: 02/05/24 11:00 Discharge Medications: New acetaminophen 325 mg Tablet 650 mg PO QID PRN30 Days Qty: 50 0RF doxycycline hyclate 100 mg Tablet 100 mg PO BID 10 Days Qty: 20 0RF amoxicillin-pot clavulanate 875-125 mg Tablet 1 tab PO BIDWM 10 Days Qty: 20 0RF Lactobacillus acidophilus 0.5 mg (100 million cell) Tablet 2 mg PO TIDWM 90 Days Qty: 360 1RF chlorhexidine gluconate 0.12 % Mouthwash 15 ml SWISH/SPIT QID 7 Days Qty: 473 0RF Continued insulin aspart U-100 [Novolog FlexPen U-100 Insulin] 100 unit/mL (3 mL) insulin pen 5 unit subcut TIDWM Rx Instructions: fast acting insulin, with meals insulin glargine [Lantus Solostar U-100 Insulin] 100 unit/mL (3 mL) insulin pen 15 unit subcut BID aspirin 81 mg capsule 81 mg PO DAILY atorvastatin 40 mg tablet 40 mg PO DAILY diphenhydramine HCl 25 mg tablet 25 mg PO HS lisinopril 2.5 mg tablet 2.5 mg PO DAILY metoprolol tartrate 25 mg tablet 12.5 mg PO BID pantoprazole [address] for susp in packet 40 mg PO DAILY Discontinued acetaminophen 500 mg tablet 1,000 mg PO Q6H PRN Discharge Orders: Discharge Order (Routine); Ordered 02/05/24 Ordered By: Pedro Miles Patient Education: Chlorhexidine (Into the mouth), Doxycycline (By mouth), Acetaminophen (By mouth), Amoxicillin (By mouth), Probiotic (By mouth) (Acidophilus Probiotic Blend, Culturelle,..., How to Stop Smoking (GEN), Dental Abscess (GEN), Dental Cavities (GEN), Cellulitis (GEN), Mouth Care (GEN) Additional Instructions: 1. See dentist in next 5-10 days regarding dental extractions 2. F/u with primary property caretaker in next 5-10 days Activity Level: No Restrictions and Activity as Tolerated Discharge Diet: Diabetic Follow Up Appointments: Provider,Not a Local [Primary Care Provider] - (Establish primary care with a provider. You need to be seen by someone in 5-10 days. Did try to make an appointment with the [facility] but unable due to them having no records on you. You also need to make an appointment to see a dentist.) Forms: [email or web address] Info Instructions
== END 2024-02-05 12:35 | disposition home or self-care (01) | DRG 383 ==
LOC: ED 02-02 00:59 → MEDSURG 02-02 01:19
PROVIDERS: Internal Medicine; Physician Assistant; Admitting Provider Family Medicine; Emergency Provider Family Medicine; Visit Provider Family Medicine
DX: L03.211 Cellulitis of face (principal); K12.2 Cellulitis and abscess of mouth; B95.61 Methicillin susceptible Staphylococcus aureus infection as the cause of diseases classified elsewhere; K02.9 Dental caries, unspecified; F15.10 Other stimulant abuse, uncomplicated; D84.821 Immunodeficiency due to drugs; Z79.60 Long term (current) use of unspecified immunomodulators and immunosuppressants; E11.9 Type 2 diabetes mellitus without complications; Z79.4 Long term (current) use of insulin; K50.10 Crohn's disease of large intestine without complications; N28.9 Disorder of kidney and ureter, unspecified; I25.10 Atherosclerotic heart disease of native coronary artery without angina pectoris; F17.210 Nicotine dependence, cigarettes, uncomplicated; Z95.5 Presence of coronary angioplasty implant and graft; I25.5 Ischemic cardiomyopathy; E78.5 Hyperlipidemia, unspecified; I10 Essential (primary) hypertension
CPT/HCPCS: 36415; 70487; 80048; 82270; 82962; 83605; 85025; 86140; 87040; 87070; 87081; 87186; 87205; 87338; 94761; 99285; A9270; J0295; J1170; J2270; J2543; J7050; Q9967

== ENCOUNTER 2025-01-04 19:33 | Emergency (ER) | payer MEDICAID, SELFPAY ==
[2025-01-04] VITALS (7 sets, daily range): BP systolic 99–151; BP diastolic 57–130; PULSE 84–130; RESP 16–48; TEMP 36.9–37; O2SAT 93–100; BMI 27.9
--- OUTSIDE RECORDS SUMMARY | 2025-01-04 19:35 | XMS_ITS | Clinical Summary ---
Author Organization [facility] Address [address] [place] [id number] Care Team Providers Care Fabrication Department Supervisor Name Role Phone Aaron Lambert DO Primary Care Provider [phone] Allergies Active Allergy Reactions Criticality Noted Date Comments Hydrocodone Itching Low 06/01/2019 Unlisted Allergen (Include Detail In Comments) GI Upset 06/01/2019 All oral pain meds give GI upset per Patient except Tylenol and Ibuprofen which don't work PT denies Medications Blood-Glucose Meter (ACCU-CHEK SHANIA PLUS METER) test 2 times daily 1 Kit 9 5:19 PM K 9 [employer] 08/26/20 19 Active lancets (Accu-Chek Softclix Lancets)Indicati ons:Diabetes mellitus with insulin therapy (HC) Test 2 times daily 100 Each 5 2 12:57 PM CDT 03/16/20 21 Active inFLIXimab-dyyb (Inflectra) 100 mg injectionIndicat ions:Crohn's disease of both small and large intestine without complication (HC) 900 mg IV every 7 weeks for 1 year 90 mL 11 11/28/19 24 Active acetaminophen (TYLENOL EXTRA STRGTH) 500 mg tabletIndication s:Crohn's disease of both small and large intestine without complication (HC) Take 2 tablets (1000 mg) by mouth prior to Inflectra infusion. 20 Tablet 11 4 9:00 AM CDT 12/07/19 24 Active diphenhydrAMINE (BENADRYL) 25 mg tabletIndication s:Crohn's disease of both small and large intestine without complication (HC) Take 1 tablet (25 mg) by mouth prior to Inflectra infusion 1 Tablet 11 4 9:00 AM CDT 12/07/19 24 Active Insulin Winston, Disposable, (bd insulin pen needle uf mini) 31 gauge x 11/30Indications :Type 2 diabetes mellitus with hyperglycemia, with long-term current use of insulin (HC) For use with insulin pens, 4 per day. Diagnosis: E11.65, Z79.4 100 Each 3 02/26/20 24 Active lisinopriL (PRINIVIL; ZESTRIL) 2.5 mg tabletIndication s:Non-STEMI (non-ST elevated myocardial infarction) (HC) Take 1 Tablet (2.5 mg) by mouth once daily. 90 Tablet 3 02/26/20 24 Active metoprolol tartrate (LOPRESSOR) 25 mg tabletIndication s:Non-STEMI (non-ST elevated myocardial infarction) (HC) Take 1 Tablet (25 mg) by mouth once daily. 90 Tablet 3 02/26/20 24 Active atorvastatin (LIPITOR) 40 mg tabletIndication s:Hyperlipidemia LDL goal <70 Take 1 Tablet (40 mg) by mouth at bedtime. 90 Tablet 3 02/26/20 24 Active aspirin chewable 81 mg chewable tabletIndication s:Non-STEMI (non-ST elevated myocardial infarction) (HC) Chew 1 Tablet (81 mg) by mouth once daily. 90 Tablet 3 02/26/20 24 Active insulin aspart, U-100, (NOVOLOG FLEXPEN) 100 unit/mL (3 mL) penIndications:T ype 2 diabetes mellitus with hyperglycemia, with long-term current use of insulin (HC) INJECT 5 UNITS SUBCUTANEOUSLY THREE TIMES DAILY WITH MEALS 15 mL 3 05/15/20 24 Active insulin glargine, U-100, (Lantus Solostar U-100 Insulin) 100 unit/mL (3 mL) penIndications:T ype 2 diabetes mellitus with hyperglycemia, with long-term current use of insulin (HC) Inject 17 units subcutaneous two times daily. 15 mL 05/15/20 24 Active blood sugar diagnostic stripIndications :Type 2 diabetes mellitus with hyperglycemia, with long-term current use of insulin (HC) Dispense item covered by pt ins. E11.9 NIDDM type II - Test 2 times/day. Reason: High A1C 200 Each 1 08/29/20 24 Active pantoprazole (PROTONIX) 40 mg delayed-release tabletIndication s:Gastroesophage al reflux disease with esophagitis without hemorrhage Take 1 Tablet (40 mg) by mouth two times daily before meals. 180 Tablet 3 08/29/20 24 Active Active Problems Problem Noted Date Diagnosed Date Type 2 diabetes mellitus wit h hyperosmolarity without nonketotic hyperglycemic-hyperosmolar coma (NKHHC) 06/13/2022 Cellulitis of face 06/05/2022 Immunocompromised state 06/05/2022 Coronary artery disease invo lving [place] coronary artery of [place] heart without angina pectoris 11/03/2020 Crohn's colitis 11/03/2020 Acute blood loss anemia 11/03/2020 Acute lower GI bleeding 11/03/2020 Ischemic cardiomyopathy 11/03/2020 Mixed hyperlipidemia 09/17/2020 Presence of coronary angioplasty implant and gra ft 08/09/2019 Overview (06/05/2022): 03/12/2012 NAREN pLAD 03/21/2012 NAREN mRCA 08/09/2019 NAREN LAD (distal to 2012 stent) Hypokalemia 05/23/2019 Colitis, acute 05/23/2019 Hyponatremia with extracellular fluid depletion 07/10/2017 Small bowel obstruction 10/15/2016 Type 2 diabetes mellitus wit h hyperglycemia, with long-term current use of insulin 10/15/2016 Myalgia 10/14/2016 Unilateral recurrent inguina l hernia without obstruction or gangrene 10/14/2016 Tobacco dependence 10/14/2016 Mild renal insufficiency 10/14/2016 Noncompliance with medication regimen 10/14/2016 Diabetes mellitus with insulin therapy 1 Elevated blood pressure 10/12/2008 Hyperlipidemia 07/08/2008 Crohn's disease Resolved Problems Problem Noted Date Diagnosed Date Resolved Date Acute systolic heart failure 03/17/2021 06/13/2022 Type 2 diabetes mellitus wit h hyperglycemia, with long-term current use of insulin 09/17/2020 Acute ulcerative colitis wit hout complications 10/14/2016 05/23/2019 Coronary artery disease invo lving [place] coronary artery of [place] heart with angina pectoris 10/14/2016 11/03/2020 Encounters Date Type Department Care Team Description 12/31/2024 Telephone [facility] [place] [address] [facility] [place] [address] [place], [facility] Appointment 11/11/2024 Telephone [facility] [address] [facility] [address] Aaron Lambert DO Lab (Lab orders needed) 10/22/2024 Telephone [facility] [address] [place] [address] John Garcia MD Questions (Infusion orders) 10/16/2024 Telephone [facility] [address] [place] [address] John Garcia MD Orders (Clarification) 10/16/2024 Orders Only [facility] [address] [facility] [place] [address] Aaron Lambert DO Letter (Needed for infusions at [facility] in [place]... from Last 3 Months Immunizations Immunization Administration Dates Next Due Influenza Virus, Unspecified 07/20/2015 Influenza, IIV4 (=>6mos) MDV 07/20/2015 Pneumococcal Poly,23-Valent (Pneumovax) 07/20/20 15 Pneumococcal conj 13-Valent (Prevnar 13) 019 Td (Age >=7 Years) 08/07/2019,04/13/2005 Td, Preservative Free (age >= 7 Years) 5 Family History Medical History Relation Name Comments No Known Problems Mother at ag e 46 of natural causes. Relation Name Status Comments Father Alive Mother Social History Tobacco Use Types Packs/Day Years Used Date Smoking Tobacco: Every Day Cigarettes Smokeless Tobacco: Never Tobacco Cessation:Ready to Q uit: No; Counseling Given: Yes Comments:1/2 pk per day Alcohol Use Standard Drinks/Week Comments Not Currently 0 (1 standard drink = 0.6 oz pur e alcohol) PHQ-2 Answer Date Recorded PHQ-2 TOTAL SCORE 0 02/26/2024 Social Connections Answer Date Recorded Do you often feel lonely or isolated from those around you? 0 2024 Financial Resource Strain Answer Date R ecorded Difficulty of Paying Living Expenses 3 2024 Difficulty of Paying Living Expenses Not on file 2024 Food Insecurity Answer Date Recorded Do you worry your food will run out before you are able to buy more? 1 2024 Transportation Needs Answer Date Record ed Does lack of transportation keep you from medica l appointments? 1 2024 Does lack of transportation keep you from work, meetings or getting things that you need? 1 2024 Housing Stability Answer Date Recorded What is your housing situation today? 1 2024 Utilities Answer Date Recorded Do you have trouble paying f or utilities (for example, heat, electricity, water, phone)? 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 Not on file Not on file No t on file Obstetrics History Last Filed Vital Signs Vital Sign Reading Time Taken Comments Blood Pressure 130/79 09/03/2024 11:32 AM K 9 [employer] OFF[employer] Pulse 85 09/03/2024 11:32 AM K 9 [employer] Temperature 36.6 C (97.8 F) 09/03/2024 11:32 AM K 9 [employer] OFF[employer]ER Respiratory Rate 18 09/03/2024 11:3 2 AM K 9 [employer] OFF[employer] Oxygen Saturation 99% 09/03/2024 11: 32 AM K 9 [employer] Inhaled Oxygen Concentration - - Weight 87.9 kg (193 lb 11.2 oz) 024 11:32 AM K 9 [employer] Height 180.3 cm (5' 11) 02/26/2024 2:10 PM CDT Body Mass Index 27.02 02/26/2024 2:10 PM CDT Plan of Treatment Upcoming Encounters Date Type Department Care Team (Late st Contact Info) Description 01/07/2025 2:05 PM CDT Office Visit [facility] [address] [facility] [place] [address] Aaron Lambert DO [address] [place] [address] 02/02/2025 12:00 PM CDT Appointment [facility] [address] [facility] [address] [place] [address] Health Maintenance Due Date Last Done Comments COVID-19 vaccine series (#1) 1975 Tdap 1981 Hepatitis B series for Diabe gunjan (1 of 3 - 19+ 3-dose series) 1989 Zoster (shingles) series for age 50+ (1 of 2) 1989 Pneumococcal series for age 50+ (3 of 3 - PCV20 or PCV21) 08/07/2024 08/07/2019, 07/20/2015 BMI (ht and wt on same day) for age 18+ 02/25/2025 02/26/2024, 06/13/2022, 10/21/2020, Additional history exists Depression screening for age 12+ 02/25/2025 02/26/2024, 06/20/2022, 06/13/2022, Additional history exists Influenza Vaccine (Season Ended) 2025 07/20/20 15, 07/20/2015 Lipids for age 45-75 02/25/2029 02/26/2024, 06/13/2022, 03/16/2021, Additional history exists Tetanus booster 08/07/2029 08/07/2019, 03/18, 04/13/2005 Colonoscopy through age 75 11/05/2030 11/05/2020, Hepatitis C screening for ag e 18-79 Completed 10/24/2017 HIV for age 15-65 Completed 02/26/2024 Procedures Procedure Name Priority Date/Time Associated Diagnosis Comments ANTI HIV 1/2 Routine 02/26/2024 2:29 PM CDT Screening for HIV (human immunodeficiency virus) LIPID PANEL W REFLEX MEASURED LDL Routine 02/26/2024 2:29 PM CDT Annual physical exam COLONOSCOPY 11/05/2020 8:59 AM K 9 [employer] ANTI HCV Routine 10/24/2017 2:46 PM K 9 [employer]ER Crohn's disease of both small and large intestine without complication (HC) Diarrhea, unspecified type from Last 3 Months or Most Recently Relevant to Health Maintenance Results * (ABNORMAL) LIPID PANEL W REFLEX MEASURED LDL (02/26/2024 2:29 PM CDT) CHOLESTEROL,TOTAL 176 100 - 199 mg/dL 02/27/2024 4:02 AM CDT [facility] Comment: Cholesterol, Total Reference Ranges Desirable <200 mg/dL Borderline 200-239 mg/dL High >=240 mg/dL TRIGLYCERIDES 275(H) <150 mg/dL 02/27/2024 4:02 AM CDT [facility] HDL CHOLESTEROL 33(L) >40 mg/dL 4:02 AM CDT [facility] NON-HDL CHOLESTEROL 143 <145 mg/dl 02/27/2024 4:02 AM CDT [facility] CHOL/HDL RATIO 5.33(H) <4.50 02/27/2024 4:02 AM CDT [facility] LDL CHOLESTEROL 88 <=130 mg/dL 02/27/2024 4:02 AM CDT [facility] VLDL CHOLESTEROL 55(H) <=30 mg/dL 02/27/2024 4:02 AM CDT [facility] PROVIDER ORDERED STATUS RANDOM 02/27/2024 4:02 AM CDT [facility] Blood BLOOD SPECIMEN / Unknown Venipuncture / Unknown 02/26/2024 2:29 PM CDT 02/26/2024 2:31 PM CDT us Aaron Lambert DO CHEMISTRY Final Result [facility] [address] [place] [address], [place] * ANTI HIV 1/2 [40981.0] (02/26/2024 2:29 PM CDT) HIV-1/HIV-2 SCREEN Non-Reacti ve Non-Reacti ve 02/27/2024 3:48 AM CDT [facility] Comment:HIV-1 p24 and HIV-1/ HIV-2 Ab Not Detected. Blood BLOOD SPECIMEN / Unknown Venipuncture / Unknown 02/26/2024 2:29 PM CDT 02/26/2024 2:31 PM CDT Aaron Lambert DO SEND OUTS Final Result [facility] [address] [place] [address], [place] * COLONOSCOPY (11/05/2020 8:59 AM K 9 [employer] OFFICER) 11/05/2020 8:59 AM K 9 [employer] OFF[employer]ER Narrative Transcriptions Evelio Sorensen MD - 11/05/2020 9:36 AM CST [facility] Patient Name: Akira Merchant Procedure Date: 11/05/2020 Gender: Male Date of : 1970 Admit Type: Inpatient Procedure: Colonoscopy Proceduralist: Evelio Sorensen [facility] Referring MD: Kvng Rachel Indications/Pre-Op Diagnosis: Hematochezia, Personal history of Crohn's disease Medications: Monitored Anesthesia Care Procedure Description: The patient had risks, benefits and alternatives explained to andgave informed consent. The patient had a stable cardiopulmonary status and judged an adequate candidate for conscious sedation. The colonoscope was passed through the anus and advanced to theterminal ileum, with identification of the appendiceal orifice and IC valve.The colonoscopy was performed without difficulty. The patient toleratedthe procedure well. The quality of the bowel preparation was fair. Complications: No immediate complications. Estimated Blood Loss & Specimen: Estimated blood loss: none. Specimen collected: Yes and sent to Laboratory Findings: The distal ileum contained small multiple 2-5mm ulcers. No bleedingwas present. Biopsies were taken with a cold forceps for histology. Multiple ulcers were found in the transverse colon, in the ascending colon and in the cecum. No bleeding was present. Biopsies were taken with a cold forceps for histology (labeled RIGHT COLON). Multiple three mm ulcers were found in the rectum, in the sigmoidcolon and in the descending colon. No bleeding was present. Biopsies were taken with a cold forceps for histology (labeled LEFT COLON). Numerous small to medium polyps were found in the entire colon. The polyps appeared to be pseudopolyps from chronic colitis. Prep not adequate for polyp surveillance. Impressions/Post-Op Diagnosis: - Preparation of the colon was fair. - Numerous pseuodpolyps - Moderately-severe active Crohn's ileocolitis. SES-CD score =10 (outof maximum 15). -No active bleeeding at this time. Bleeding has been from activeCrohn's colitis. Recommendation: - Resume regular diet. - Continue present medications: Prednisone 40mg qday. Will needlonger taper while he restarts his remicade. Prednisone 40mg qday x 7 day,30mg x 7 day, 20mg x 7 day, 10mg x 7 day, 5mg x 7 day, then stop. Willneed increased monitoring of blood sugars on prednisone. - Continue Remicade induction. - Await pathology results. - Should have colonoscopy in 6 months to check response to Remicadeand to survey numerous polyps. Evelio Sorensen MD 11/05/2020 9:36:12 AM This report has been signed electronically. Note Initiated On: 11/05/2020 8:59 AM us Evelio Sorensen MD PROCEDURE ORD Final Resu lt * ANTI HCV (10/24/2017 2:46 PM K 9 [employer] OFFICER) HEPATITIS C ANTIBODY Non-Reacti ve Non-Reacti ve 10/24/2017 8:23 PM K 9 [employer] OFFICER [facility] Blood BLOOD SPECIMEN / Unknown Venipuncture / Unknown 10/24/2017 2:46 PM K 9 POLICE OFFICER 10/24/2017 3:47 PM K 9 POLICE OFFICER Narrative [facility] - 10/24/2017 8:23 PM K 9 [employer] OFF[employer]ER Antibodies to HCV not detected; does not exclude the possibility of exposure to HCV. us John Garcia MD SEND OUTS Final Res ult [facility] [address] [place] [address], [place] from Last 3 Months or Most Recently Relevant to Health Maintenance Insurance MEDICAID Advance Directives * DNR (Latest Code Status on File) Date Activated Date Inactivated Comments 06/05/2022 7:43 PM 06/09/2022 1:06 PM Question Answer Comments Code Status Discussion: Reviewed Preferences * Full Code Date Activated Date Inactivated Comments 06/05/2022 12:52 PM 06/05/2022 7:43 PM Question Answer Comments Code Status Discussion: Unable to Assess Preferences, Provider to review later * Full Code Date Activated Date Inactivated Comments 11/03/2020 3:44 AM 11/07/2020 1:51 PM Question Answer Comments Code Status Discussion: Per Advance Care Plan * Full Code Date Activated Date Inactivated Comments 10/16/2020 9:49 PM 10/17/2020 3:04 PM Question Answer Comments Code Status Discussion: Discussed * Full Code Date Activated Date Inactivated Comments 09/17/2020 2:42 PM 09/18/2020 1:45 PM Question Answer Comments Code Status Discussion: Not Discussed Care Teams Fabrication Department Supervisor Relationship Specialty Start Date End Date Aaron Lambert DO [address] [place] [address] PCP - General Family Practice 08/25/24
--- OUTSIDE RECORDS SUMMARY | 2025-01-04 19:35 | XMS_ITS | Clinical Summary ---
Author Organization [facility] Address [address] [place] [address] Care Team Providers Care Pharmacy Aide Name Role Phone Elsewhere, Pcp Primary Care Provider Unavailabl e Source Comments Patient records contain information from all sites at [facility]. For routine questions regarding patient records, call [phone] during business hours, M-F 8:00 AM - 5:00 PM Central Time. Record requests for emergency care only can be directed to [phone] at any time.[facility] Allergies No known active allergies Medications * This document contains information received from the source organization and may not represent a complete record from that organization. adalimumab (HUMIRA SYRINGE) 40 mg/0.8 mL syringe kit Inject 40 mg under the skin every 14 (fourteen) days. Active cyclobenzaprine (FLEXERIL) 10 mg tablet Take 10 mg by mouth 3 (three) times a day. Active insulin aspart U-100 (NovoLOG FlexPen) 100 unit/mL (3 mL) injection Inject 0-12 Units under the skin 3 (three) times a day with meals. Active insulin detemir U-100 (LEVEMIR FlexTouch) 100 unit/mL (3 mL) injection Inject 40 Units under the skin at bedtime. Active predniSONE (DELTASONE) 20 mg tablet Take 2.5 tablets (50 mg total) by mouth daily. Continue to decrease by 10 mg weekly as previously instructed. Crohn's Flare - ordered 08/05 9 Active Additional Information Patient not taking.Reported on 10/24/2024 atorvastatin (LIPITOR) 40 mg tablet Take 1 tablet (40 mg total) by mouth at bedtime. 90 tablet 3 9 Active metoprolol tartrate (LOPRESSOR) 25 mg tablet Take 0.5 tablets (12.5 mg total) by mouth 2 (two) times a day. 90 tablet 3 9 Active Additional Information Patient not taking.Reported on 10/24/2024 lisinopril (PRINIVIL,ZESTR IL) 5 mg tablet Take 1 tablet (5 mg total) by mouth daily. 90 tablet 3 9 Active Additional Information Patient taking differently: 2.5 mgoral Daily, Reported on 10/24/2024 insulin glargine 100 unit/mL (3 mL) pen Inject 17 Units under the skin 2 (two) times a day. Pharmacy select brand per patient insurance/prefer ence. Active metoprolol succinate (Toprol XL) 25 mg 24 hr tablet Take 25 mg by mouth daily. Do not crush or chew. Active omeprazole (PriLOSEC) [address] capsule Take 20 mg by mouth daily before morning meal. Active Active Problems Problem Noted Date Diagnosed Date Crohn's Disease 10/21/2024 Coronary Stent Status Post 08/09/2019 Overview (08/09/2019): 03/12/2012 JOSELUIS pLAD 03/21/2012 JOSELUIS mRCA 08/09/2019 JOSELUIS LAD (distal to 2011 stent) Hypertensive Heart Disease Without Heart Failure 08/09/2019 Hyperlipidemia 08/09/2019 Nicotine Dependence Cigarettes 08/09/2019 Acute Systolic (Congestive) Heart Failure 2018 Non-ST Elevation Myocardial Infarction 9 Colitis Crohn's 10/26/2016 Overview (02/06/2017): Colitis Crohn's Manager Field Service Use Of Insulin Active 07/28/2015 Overview (02/06/2017): Manager Field Service Use Of Insulin Active Atherosclerotic Heart Diseas e Of [place] Coronary Artery Without Angina Pectoris 05/01/2012 Overview (08/09/2019): 03/12/2012 JOSELUIS pLAD 03/21/2012 JOSELUIS mRCA 08/09/2019 JOSELUIS LAD (distal to 2011 stent) Diabetes Mellitus Type 2 05/01/2012 Encounters Date Type Department Care Team Description 12/12/2024 1:00 PM CDT Infusion Department of Infusion Therapy in [address] [address] John Garcia M.D. Crohn's Disease (HCC) (Primary Dx) 10/24/2024 12:15 PM LOT BOSS Infusion Department of Infusion Therapy in [address] [address] John Garcia M.D. Crohn's Disease (HCC) (Primary Dx) 10/23/2024 Documentation Department of Infusion Therapy in [address] [address] John Garcia M.D. 10/22/2024 Orders Only Department of Oncology in [address] [phone] Vernell Pierce, D., R.Ph. 10/21/2024 Documentation Department of Infusion Therapy in [address] [address] John Garcia M.D. 10/21/2024 Orders Only Department of Infusion Therapy in [address] [address] John Garcia M.D. Crohn's Disease (HCC) (Primary Dx) from Last 3 Months Immunizations Immunization Administration Dates Next Due Influenza, Unspecified 07/20/2015 PPSV23 07/20/2015 Td Preservative Free (TENIVAC, DECAVAC) 04/13/20 05 Family History Medical History Relation Name Comments Diabetes Brother Hyperlipidemia Brother Hypertension Brother Alcohol abuse Father Drug abuse Father Relation Name Status Comments Brother Father Social History Tobacco Use Types Packs/Day Years Used Date Smoking Tobacco: Every Day PHQ-2 Answer Date Recorded PHQ-2 Score 0 08/09/2019 Nutrition Answer Date Recorded Nutrition: EVOO Fat Source 13 06/01 Nutrition: Servings of Fruits/Vegetables per Day Not on file 06/01/2020 Dental Answer Date Recorded Dental: Regular Dentist Unknown 11/16/19 21 Sex and Gender Information Value Date Recorded Sex Assigned at Male 08/01/2022 10:11 AM LOT BOSS Legal Sex Male 10:19 AM LOT BOSS Gender Identity Male 08/01/2022 10:11 AM LOT BOSS Sexual Orientation Straight 08/01/2022 10 :11 AM LOT BOSS Last Filed Vital Signs Vital Sign Reading Time Taken Comments Blood Pressure 121/73 12/12/2024 2:16 PM CDT Pulse 75 12/12/2024 2:16 PM CDT Temperature 36.6 C (97.9 F) 12/12/2024 2:16 PM CDT Respiratory Rate 16 12/12/2024 2:16 PM CDT Oxygen Saturation 97% 12/12/2024 1:11 PM CDT Inhaled Oxygen Concentration - - Weight 94 kg (207 lb 3.7 oz) 12/12/2024 1:11 PM CDT Height 178 cm (5' 10.08) 08/08/2019 9:40 PM LOT BOSS Body Mass Index 29.67 08/08/2019 9:40 PM LOT BOSS Plan of Treatment Health Maintenance Due Date Last Done Comments CT Colonography 1970 Cologuard 1970 Dilated Eye Exam 1970 HIV Screening 1970 Hepatitis C Screening 1970 Tobacco Cessation counseling 1970 COVID-19 Vaccine (#1) 1975 Hepatitis B Vaccines (1 of 3 - 19+ 3-dose series) 1989 Zoster Vaccines (1 of 2) 1989 Diabetes Education 02/27/2017 10/26/2016 Diabetic Office Visit with Foot Exam 10/26/2017 10/26/2016 Urine Albumin 10/26/2017 10/26/2016, 07/19, 07/27/2015, Additional history exists DTaP,Tdap,and Td Vaccines (1 - Tdap) 08/08/2019 08/07/2019, 04/13/2005 Pneumococcal vaccine (50+ years) (3 of 3 - PPSV23, PCV20 or PCV21) 07/20/2020 08/07/2019, 07/20/2015 Hemoglobin A1C 05/28/2024 02/26/2024, 05/18, 03/16/2021, Additional history exists Influenza Vaccine (#1) 2024 07/20/2015 Depression Screening (Annual PHQ-2) 09/17/2024 Creatinine Level (Kidney Function Test) 02/25/2025 02/26/2024, 06/13/2022, 06/09/2022, Additional history exists Lipid (Cholesterol) Screening 02/25/2025 02/26/2024, 06/13/2022, 03/16/2021, Additional history exists Colonoscopy 11/05/2025 11/05/2020, 06/18, 12/29/2014 Colorectal Cancer Surveillance 11/05/2025 Office Visit for Blood Pressure Check / Re-check 12/12/2025 12/12/2024 Hepatitis B Screening Discontinued 06/04/2020 , 05/30/2019, 12/24/2014 HPV Vaccines Aged Out No longer eligi ble based on patient's age to complete this topic IPV Vaccines Aged Out No longer eligi ble based on patient's age to complete this topic Medical Devices Implanted Type Area Clinical Quality Analyst Device Identifier Shelf Expiration Date Model / Serial / Lot Integrity Stent 3.5 X 15 - P[employer]itt [id number] Implanted:Qty: 1 on 03/12/2012 Cardiac Stent Medtronic Description:Device Manufactu rer - [employer]. Device Status Text - [id number]. Xience Stent 3.0 X 15 - [place] [id number] Implanted:Qty: 1 on 03/21/2012 Cardiac Stent Grewal Description:Device Manufactu rer - [employer]. Device Status Text - [id number]. Stnt Ronyx Joseluis Rx 3.5x30 - [id number] Implanted:Qty: 1 on 08/09/2019 by Carlos Cruz M.D., Ph.D. at [facility] Cardiac Stent N/A: Coronary Medtronic 12/23/2020 [id number] / / [id number] Description:pLAD Procedures Procedure Name Priority Date/Time Associated Diagnosis Comments HEMOGLOBIN A1C, B Timed 08/09/2019 4:3 7 AM LOT BOSS LIPID PANEL, S Timed 08/09/2019 4:37 AM LOT BOSS BASIC METABOLIC PANEL, S/P Timed 08/09/2019 12:13 AM LOT BOSS COLONOSCOPY Routine 07/12/2017 7:56 AM CDT ALBUMIN, RANDOM, U Routine 10/26/2016 3: 59 PM LOT BOSS HEPATITIS B SURFACE ANTIGEN Routine 12/24/2014 11:05 AM CDT from Last 3 Months or Most Recently Relevant to Health Maintenance Results * (ABNORMAL) Lipid Panel (08/09/2019 4:37 AM LOT BOSS) Pathologist [facility] Cholesterol, Total 138 mg/dL 2018 6:26 AM LOT BOSS DTL Comment: ----REFERENCE VALUE---- Desirable: < 200 Borderline high: 200 - 239 High: > or = 240 Triglycerides 258(H) mg/dL 08/09/2019 6:26 AM LOT BOSS DTL Comment: ----REFERENCE VALUE---- Normal: <150 Borderline high: 150-199 High: 200-499 Very high: > or =500 Cholesterol, HDL, S 35(L) >=40 mg/dL 08/09/2019 6:26 AM LOT BOSS DTL Calculated LDL 51 mg/dL 08/09/2019 6:26 AM LOT BOSS DTL Comment: ----REFERENCE VALUE---- Desirable: <100 Above Desirable: 100-129 Borderline high: 130-159 High: 160-189 Very high: > or =190 Cholesterol, Non-HDL, Calculated 103 mg/dL 08/09/2019 6:26 AM LOT BOSS DTL Comment: ----REFERENCE VALUE---- Desirable: <130 Above Desirable: 130-159 Borderline high: 160-189 High: 190-219 Very high: > or =220 Blood (Blood, Venous) 08/09/2019 4:37 AM LOT BOSS 08/09/2019 4:55 AM LOT BOSS us Kristine Quigley M.D., Ph.D. LAB BLOOD ADD-ON Breana l Result [facility] [address] [place] [address], [place] [facility] [facility] [place] [address] [place] [address] * (ABNORMAL) Hemoglobin A1c (08/09/2019 4:37 AM LOT BOSS) Hemoglobin A1c, B 8.2(H) 4.0 - 5.6 % 08/09/2019 5:22 AM LOT BOSS DTL Comment: Hemoglobin A1c values greater than or equal to 6.5 percent are diagnostic for diabetes mellitus. Diagnosis should be confirmed by repeat testing. In diabetic patients, HbA1c goals should be discussed with healthcare provider. Blood (Blood, Venous) 08/09/2019 4:37 AM LOT BOSS 08/09/2019 4:55 AM LOT BOSS us Kristine Quigley M.D., Ph.D. LAB BLOOD ADD-ON Breana l Result [facility] [address] [place] [address], [place] [address] [place] [address] * (ABNORMAL) BMP (Basic Metabolic Panel) (08/09/2019 12:13 AM LOT BOSS) Pathologist [facility] Potassium, S 4.1 3.6 - 5.2 mmol/L 08/09/2019 1:06 AM LOT BOSS DTL Sodium, S 132(L) 135 - 145 mmol/L 08/09/2019 1:06 AM LOT BOSS DTL Chloride, S 96(L) 98 - 107 mmol/L 08/09/2019 1:06 AM LOT BOSS DTL Bicarbonate, S 24 22 - 29 mmol/L 08/09/2019 1:06 AM LOT BOSS DTL Anion Gap 12 7 - 15 08/09/2019 1:06 AM LOT BOSS DTL BUN (Blood Urea Nitrogen), S 17 8 - 24 mg/dL 08/09/2019 1:06 AM LOT BOSS DTL Creatinine 1.05 0.74 - 1.35 mg/dL 08/09/2019 1:06 AM LOT BOSS DTL eGFR-Non Black/ 83 >=60 mL/min/BSA 08/09/2019 1:06 AM LOT BOSS DTL Comment: ----ADDITIONAL INFORMATION---- Estimated GFR calculated using the 2009 CKD_EPI creatinine equation. eGFR-Black/Afri can [place] >90 >=60 mL/min/BSA 08/09/2019 1:06 AM [facility] BOSS DTL Comment: ----ADDITIONAL INFORMATION---- Estimated GFR calculated using the 2009 CKD_EPI creatinine equation. Calcium, Total, S 8.7 8.6 - 10.0 mg/dL 08/09/2019 1:06 AM LOT BOSS DTL Glucose, S 243(H) 70 - 140 mg/dL 08/09/2019 1:06 AM LOT BOSS DTL Blood (Blood, Venous) 08/09/2019 12:13 AM LOT BOSS 08/09/2019 12:29 AM LOT BOSS us Kristine Quigley M.D., Ph.D. LAB BLOOD ADD-ON Breana l Result Performing Organization Address City/[facility] Co de Phone Number [facility] [address] [place] [address], [place] [facility] [facility] [place] [address] [place] [address] * Colonoscopy (07/12/2017 7:56 AM CDT) 07/12/2017 7:56 AM CDT us Alicia JcN.P. GI PROCEDURE ORDERABLES Fi nal Result Performing Organization Address [facility] de Phone Number HISTORICAL [facility] IMAGING CONVERSION * (ABNORMAL) Microalbumin, Random, Urine (10/26/2016 3:59 PM LOT BOSS) Creatinine, Random, U 423(H) 40 - 278 MGDL POWERCHART HXU Albumin % 63.7 MGL POWERCHART Albumin/Creatin ine Ratio 15 0 - 17 MGG POWERCHART Urine 10/26/2016 3:59 PM LOT BOSS us Ruth Shanks APRN, C.N.P., R.N. LAB URINE ORDE RABLES Final Result Performing Organization Address City/[facility] Co de Phone Number POWERCHART * Hepatitis B Surface Antigen (12/24/2014 11:05 AM CDT) HBs Antigen, S Negative Negative POWERCHART Comment: Test Performed by: [facility] [address] [place] [address] Burrer Operator: Kaveh Nuñez II, M.D., Ph.D. Blood 12/24/2014 11:0 5 AM CDT Nghia Thurston P.A.-C. LAB MICROBIOLOGY - BLO OD ORDERABLES Final Result POWERCHART from Last 3 Months or Most Recently Relevant to Health Maintenance Insurance [place] Advance Directives For more information, please contact: [phone] * Full Code (Latest Code Status on File) Date Activated Date Inactivated Comments 08/08/2019 11:49 PM 08/09/2019 8:19 PM Question Answer Comments Full Code: Discussed Care Teams Pharmacy Aide Relationship Specialty Start Date End Date Elsewhere, Pcp PCP - General Family Medicine 12/27/17
--- OUTSIDE RECORDS SUMMARY | 2025-01-04 19:35 | XMS_ITS | Encounter Summary ---
Author Organization [facility] Address [address] [place] [address] Care Team Providers Care Lead Accountant Name Role Phone Elsewhere, Pcp Primary Care Provider Unavailabl e Reason for Visit * Reason Comments Outpatient Infusion infliximab * Episode Based Medications (Routine) - Authorized Specialty Diagnoses / Procedures Referred By Contac t Referred To Contact Diagnoses Crohn's Disease (HCC) Procedures INJECTION, INFLECTRA [place] INFLIXIMAB INJECTION External, Ordering Provider[facility]isca [facility] Region Referral ID Status Reason Start Date Expiration Date V isits Requested Visits Authorized [id number] Authorized 10/21/2024 09/16/2025 8 8 Encounter Details Date Type Department Care Team (Late st Contact Info) Description 12/12/2024 1:00 PM CDT Infusion Department of Infusion Therapy in [place] [address] [place] [address] John Garcia M.D. [address] [place] [phone] Crohn's Disease (HCC) (Primary Dx) Social History Tobacco Use Types Packs/Day Years [...] Sex Assigned at Male 08/01/2022 10:11 AM PROPERTY ADMINISTRATOR Legal Sex Male 10:19 AM PROPERTY ADMINISTRATOR Gender Identity Male 08/01/2022 10:11 AM PROPERTY ADMINISTRATOR Sexual Orientation Straight 08/01/2022 10 :11 AM PROPERTY ADMINISTRATOR documented as of this encounter Last Filed Vital Signs Vital Sign Reading Time Taken Comments Blood Pressure 121/73 12/12/2024 2:16 PM CDT Pulse 75 12/12/2024 2:16 PM CDT Temperature 36.6 C (97.9 F) 12/12/2024 2:16 PM CDT Respiratory Rate 16 12/12/2024 2:16 PM CDT Oxygen Saturation 97% 12/12/2024 1:11 PM CDT Inhaled Oxygen Concentration - - Weight 94 kg (207 lb 3.7 oz) 12/12/2024 1:11 PM CDT Height - - Body Mass Index 29.67 08/08/2019 9:40 PM PROPERTY ADMINISTRATOR documented in this encounter Plan of Treatment Not on file documented as of this encounter Visit Diagnoses Diagnosis Crohn's Disease (HCC)- Primary documented in this encounter Administered Medications Inactive Administered Medications - up to 3 most recent administrations Medication Order MAR Action Action Date Dose Rate Site acetaminophen tablet 1,000 mg (TylenoL) 1,000 mg, oral, Once, On Sun12/12/24 at 1330, For 1 dose, 30 minutes prior to Infliximab.Indications:Cr ohn's Disease (HCC) Given 12/12/2024 1:32 PM CDT 1,000 mg diphenhydrAMINE capsule 25 mg (BenadryL) 25 mg, oral, Once, On Sun12/12/24 at 1330, For 1 dose, 30 minutes prior to Infliximab.Indications:Cr ohn's Disease (HCC) Given 12/12/2024 1:32 PM CDT 25 mg inFLIXimab 900 mg in NaCl 0.9% IVPB (Remicade) 900 mg, intravenous, Once, On Sun12/12/24 at 1400, For 1 dose, Administer over 2 hours. Use an in-line, sterile, non-pyrogenic, low protein-binding filter with 1.2 micron pore size or less. Final concentration should be between 0.4-4 mg/mL., Infusion rate adjustment: If patient has tolerated 3 tapered infusions at the same dose, accelerated infusions authorized, Restriction Criteria (Pharmacy will review and approve if criteria met): Authorized by Gastroenterology, Rheumatology, Dermatology or Hematology Oncology, Product to dispense: Insurance mandated: inFLIXimab (REMICADE)Indications:[place] hn's Disease (HCC) Rate/Dose Change 12/12/2024 2:16 PM CDT 300 mL/hr New Bag 12/12/2024 2:00 PM CDT 900 mg 100 mL/hr documented in this encounter Additional Health Concerns Assessment Noted Time PHQ-9 Depression Total Score: 1 08/09/20 19 8:57 AM PROPERTY ADMINISTRATOR documented as of this encounter Care Teams Lead Accountant Relationship Specialty Start Date End Date Elsewhere, Pcp PCP - General Family Medicine 12/27/17 documented as of this encounter
--- NOTE | 2025-01-04 19:47 | ED.GENADULT ---
HPI - General Adult General Date Seen: 01/04/25 <Ariana Schofield MD - Last Filed: 01/04/25 19:47> Chief complaint: Shortness of Breath/Dyspnea <Ariana Schofield MD - Last Filed: 01/04/25 19:47> Stated complaint: chest pain <Ariana Schofield MD - Last Filed: 01/04/25 19:47> Time Seen by Provider: 01/04/25 19:47 <Ariana Schofield MD - Last Filed: 01/04/25 19:47> Source: patient <Ariana Schofield MD - Last Filed: 01/04/25 19:47> Mode of arrival: ambulatory <Ariana Schofield MD - Last Filed: 01/04/25 19:47> Limitations: no limitations <Ariana Schofield MD - Last Filed: 01/04/25 19:47> Related Data Home medications: Home Medications ?Medication ?Instructions ?Recorded ?Confirmed aspirin 81 mg capsule 81 mg PO DAILY 12/27/23 02/01/24 atorvastatin 40 mg tablet 40 mg PO DAILY 12/27/23 02/01/24 diphenhydramine HCl 25 mg tablet 25 mg PO HS 12/27/23 02/02/24 lisinopril 2.5 mg tablet 2.5 mg PO DAILY 12/27/23 02/01/24 metoprolol tartrate 25 mg tablet 12.5 mg PO BID 12/27/23 02/01/24 pantoprazole 40 mg granules 40 mg PO DAILY 12/27/23 02/01/24 delayed-release for susp in packet insulin aspart U-100 100 unit/mL 5 unit subcut TIDWM 02/02/24 02/02/24 (3 mL) subcutaneous pen (Novolog FlexPen U-100 Insulin aspart) insulin glargine 100 unit/mL (3 15 unit subcut BID 02/02/24 02/02/24 mL) subcutaneous pen (Lantus Solostar U-100 Insulin) Previous Rx's ?Medication ?Instructions ?Recorded Lactobacillus acidophilus 0.5 mg 2 mg (4 x 0.5 mg (100 million 02/05/24 (100 million cell) tablet cell)) PO TIDWM 90 days #360 tabs acetaminophen 325 mg tablet 650 mg (2 x 325 mg) PO QID PRN 30 02/05/24 days #50 tabs amoxicillin 875 mg-potassium 1 tab PO BIDWM 10 days #20 tabs 02/05/24 clavulanate 125 mg tablet chlorhexidine gluconate 0.12 % 15 ml SWISH/SPIT QID 7 days #473 mL 02/05/24 mouthwash doxycycline hyclate 100 mg tablet 100 mg PO BID 10 days #20 tabs 02/05/24 doxycycline monohydrate 100 mg 100 mg PO BID 10 days #20 caps 02/06/24 capsule <Ariana Schofield MD - Last Filed: 01/04/25 19:47> Allergies/adverse reactions: Allergies Allergy/AdvReac Type Severity Reaction Status Date / Time oxycodone (From OxyContin) Allergy Intermediate Verified 01/09/24 09:32 <Ariana Schofield MD - Last Filed: 01/04/25 19:47> [facility] Medical History: Medical History Lip abscess ?K13.0 - Diseases of lips (ICD-10) Smoking ?F17.200 - Nicotine dependence, unspecified, uncomplicated (ICD-10) Dental decay ?K02.9 - Dental caries, unspecified (ICD-10) Facial abscess ?L02.01 - Cutaneous abscess of face (ICD-10) Methamphetamine abuse ?F15.10 - Other stimulant abuse, uncomplicated (ICD-10) Tobacco dependence ?F17.200 - Nicotine dependence, unspecified, uncomplicated (ICD-10) Renal insufficiency ?N28.9 - Disorder of kidney and ureter, unspecified (ICD-10) Crohn's colitis ?K50.10 - Crohn's disease of large intestine without complications (ICD-10) Diabetes mellitus type 2, insulin dependent ?E11.9 - Type 2 diabetes mellitus without complications (ICD-10) ?Z79.4 - shelter (current) use of insulin (ICD-10) Hyperlipidemia ?E78.5 - Hyperlipidemia, unspecified (ICD-10) Ischemic cardiomyopathy ?I25.5 - Ischemic cardiomyopathy (ICD-10) CAD (coronary artery disease) ?I25.10 - Atherosclerotic heart disease of [place] coronary artery without angina pectoris (ICD-10) Hypertension ?I10 - Essential (primary) hypertension (ICD-10) Crohn's disease ?K50.90 - Crohn's disease, unspecified, without complications (ICD-10) <Ariana Schofield MD - Last Filed: 01/04/25 19:47> Surgical History: Surgical History Presence of coronary angioplasty implant and graft ?Z95.5 - Presence of coronary angioplasty implant and graft (ICD-10) <Ariana Schofield MD - Last Filed: 01/04/25 19:47> Social History: Social History (Updated 02/01/24 @ 23:44 by Jerad Saleh MD) Narrative: He lives alone in [place]. Is next door neighbor is Dilip Vallejo. He indicates that Dilip would be his healthcare power of title attorney. Code status is full. He continues to smoke cigarettes. He does not drink alcohol. Reports no recreational drug use. What is your current living situation?: I presently have a place to live Problems where you live: no known problems Problems where you live details: pt lives in [facility] In the past 12 months, utilities in danger of being shut off: no In past 12 months, lack of transportation kept you from medical appts, meetings, work, or getting things needed for daily living: no In the past 12 mos, have been you worried that your food would run out before you had money to buy more?: never true In the past 12 mos, the food you bought just didn't last and you didn't have money to buy more?: never true Highest level of school completed/degree received: 11th grade Smoking Status: Current every day smoker What tobacco products do you use: cigarettes Years smoked: 15 Do you use any of these nicotine containing products: None Second hand tobacco smoke exposure: Yes How often do you have a drink containing alcohol: never How often do you have six or more drinks on one occasion: Never AUDIT-C Alcohol total score: 0 Non-prescribed substance use: denies use Caffeine: Yes (Soda) How often does anyone, including family, friends and others, physically hurt you: never How often does anyone, including family, friends and others, insult or talk down to you: never How often does anyone, including family, friends and others, threaten you with harm: never How often does anyone, including family, friends and others, scream or curse at you: never service: No <Ariana Schofield MD - Last Filed: 01/04/25 19:47> Exam Const: Vital Signs, click to edit/add: Vital Signs - 24 hr 01/04/25 19:40 01/04/25 20:19 01/04/25 20:31 Temperature 98.5 F Pulse Rate [Left P ulse Oximeter] 130 H 104 H Respiratory Rate 48 H 16 Blood Pressure [Ri ght Upper Arm] 151/130 H 124/77 Pulse Oximetry 100 96 96 Oxygen Delivery Me thod Room Air Nasal Cannula Oxygen Flow Rate 2 01/04/25 21:20 01/04/25 21:50 01/04/25 22:11 Temperature 98.6 F Pulse Rate [Left P ulse Oximeter] 115 H 94 99 Respiratory Rate 18 16 16 Blood Pressure [Ri ght Upper Arm] 110/69 103/63 99/57 L Pulse Oximetry 96 97 97 Oxygen Delivery Me thod Nasal Cannula Room Air Nasal Cannula Oxygen Flow Rate 2 2 01/04/25 23:29 Temperature Pulse Rate [Left P ulse Oximeter] 84 Respiratory Rate 16 Blood Pressure [Ri ght Upper Arm] 126/87 Pulse Oximetry 93 Oxygen Delivery Me thod Room Air Oxygen Flow Rate <Ariana Schofield MD - Last Filed: 01/04/25 19:47> Vital Signs, click to edit/add: Vital Signs - 24 hr 01/04/25 19:40 01/04/25 20:19 01/04/25 20:31 Temperature 98.5 F Pulse Rate [Left P ulse Oximeter] 130 H 104 H Respiratory Rate 48 H 16 Blood Pressure [Ri ght Upper Arm] 151/130 H 124/77 Pulse Oximetry 100 96 96 Oxygen Delivery Me thod Room Air Nasal Cannula Oxygen Flow Rate 2 01/04/25 21:20 01/04/25 21:50 01/04/25 22:11 Temperature 98.6 F Pulse Rate [Left P ulse Oximeter] 115 H 94 99 Respiratory Rate 18 16 16 Blood Pressure [Ri ght Upper Arm] 110/69 103/63 99/57 L Pulse Oximetry 96 97 97 Oxygen Delivery Me thod Nasal Cannula Room Air Nasal Cannula Oxygen Flow Rate 2 2 01/04/25 23:29 Temperature Pulse Rate [Left P ulse Oximeter] 84 Respiratory Rate 16 Blood Pressure [Ri ght Upper Arm] 126/87 Pulse Oximetry 93 Oxygen Delivery Me thod Room Air Oxygen Flow Rate <Mat Morel MD - Last Filed: 01/06/25 14:51> Course Course ED Course: Patient signed out to Dr. Morel at shift change- 12:05 a.m. on 01/05 54-year-old male who presented on the evening shift after having smoked methamphetamine at home. He was complaining of dry mouth and shortness of breath. however, shortness of breath seemed to be his way of expressing that his mouth was dry, Report is that it did not sound like he was really having dyspnea. workup for causes for shortness of breath was undertaken and was normal. Patient received Zyprexa for agitation and is now restful. He had been brought in by his friend yesterday evening who left shortly after the patient arrived. Plan will be for the patient to sleep here in the ER until he is alert, and clinically sober. Dr. Logan anticipates discharge home in the morning ( or sooner, if the patient ignacio and is able to arrange a ride). I recheck the patient. He was resting in bed. He was still groggy but arouses to voice. Suspect that he probably is sedated from his Zyprexa and also probably is in the catecholamine washout phase after his meth binge. Oxygen sats normal. Recheck again 7:30 a.m.. Still groggy but more arousable. Signed out to my daytime partner at 8:00 a.m.. Anticipate that as he continues to sober, he will likely be able to discharge. <Mat Morel MD - Last Filed: 01/06/25 14:51> Vital Signs Vital signs: Initial Vital Signs Temperature 98.5 F 01/04/25 19:40 Temperature Source Temporal Artery Scan 01/04/25 19:40 Pulse Rate 130 H 01/04/25 19:40 Respiratory Rate 48 H 01/04/25 19:40 Blood Pressure 151/130 H 01/04/25 19:40 Blood Pressure Mean 137 H 01/04/25 19:40 Blood Pressure Position Semi-Fowlers 01/04/25 19:40 Pulse Oximetry 100 01/04/25 19:40 Oxygen Delivery Method Room Air 04/20/25 19:40 Vital Signs Temperature 98.5 F 01/04/25 19:40 Pulse Rate 130 H 01/04/25 19:40 Respiratory Rate 48 H 01/04/25 19:40 Blood Pressure 151/130 H 01/04/25 19:40 Pulse Oximetry 100 01/04/25 19:40 Oxygen Delivery Method Room Air 01/04/25 19:40 Temperature 98.6 F 01/04/25 21:50 Pulse Rate 70 01/05/25 05:05 Respiratory Rate 16 01/05/25 05:05 Blood Pressure 126/87 01/05/25 00:46 Pulse Oximetry 93 01/05/25 05:05 Oxygen Delivery Method Room Air 01/05/25 05:05 Oxygen Flow Rate 0 01/05/25 05:05 <Ariana Schofield MD - Last Filed: 01/04/25 19:47> Initial Vital Signs Temperature 98.5 F 01/04/25 19:40 Temperature Source Temporal Artery Scan 01/04/25 19:40 Pulse Rate 130 H 01/04/25 19:40 Respiratory Rate 48 H 01/04/25 19:40 Blood Pressure 151/130 H 01/04/25 19:40 Blood Pressure Mean 137 H 01/04/25 19:40 Blood Pressure Position Semi-Fowlers 01/04/25 19:40 Pulse Oximetry 100 01/04/25 19:40 Oxygen Delivery Method Room Air 01/04/25 19:40 Vital Signs Temperature 98.5 F 01/04/25 19:40 Pulse Rate 130 H 01/04/25 19:40 Respiratory Rate 48 H 01/04/25 19:40 Blood Pressure 151/130 H 01/04/25 19:40 Pulse Oximetry 100 01/04/25 19:40 Oxygen Delivery Method Room Air 01/04/25 19:40 Temperature 98.6 F 01/04/25 21:50 Pulse Rate 70 01/05/25 05:05 Respiratory Rate 16 01/05/25 05:05 Blood Pressure 126/87 01/05/25 00:46 Pulse Oximetry 93 01/05/25 05:05 Oxygen Delivery Method Room Air 01/05/25 05:05 Oxygen Flow Rate 0 01/05/25 05:05 <Mat Morel MD - Last Filed: 01/06/25 14:51> Medications Administered Medications: Discontinued Medications Generic Name Dose Route Start Last Admin Trade Name Freq PRN Reason Stop Dose Admin Potassium Chloride 10 meq in 100 mls @ 100 mls/hr 01/04/25 21:00 01/04/25 23:22 Potassium Chloride IVPB 01/04/25 23:29 Infused Q90M TRAVIS Infusion Olanzapine 5 mg 01/04/25 19:49 01/04/25 19:55 Olanzapine 5 Mg/Ml Inj IM 01/04/25 19:50 5 mg ONCE ONE Administration <Ariana Schofield MD - Last Filed: 01/04/25 19:47> Discontinued Medications Generic Name Dose Route Start Last Admin Trade Name Freq PRN Reason Stop Dose Admin Potassium Chloride 10 meq in 100 mls @ 100 mls/hr 01/04/25 21:00 01/04/25 23:22 Potassium Chloride IVPB 01/04/25 23:29 Infused Q90M TRAVIS Infusion Olanzapine 5 mg 01/04/25 19:49 01/04/25 19:55 Olanzapine 5 Mg/Ml Inj IM 01/04/25 19:50 5 mg ONCE ONE Administration <Mat Morel MD - Last Filed: 01/06/25 14:51> Medical Decision Making Lab Data Labs: Lab Results 01/04/25 01/04/25 01/04/25 Range/Units 19:40 19:50 19:56 WBC 12.15 H (4.50-11.00) K/uL RBC 3.87 L (4.30-5.90) m/uL Hgb 10.5 L (13.5-17.5) gm/dL Hct 32.1 L (37.0-53.0) % MCV 83 (80-100) fL MCH 27 (26-34) pg MCHC 33 (32-36) gm/dL RDW Coeff of [place] 13.9 (11.5-15.5) % Plt Count 435 (140-440) K/uL Neut % (Auto) 52.4 (42.0-72.0) % Lymph % (Auto) 32.7 (20-44) % [place] % (Auto) 11.7 H (0.0-11.0) % Eos % (Auto) 2.6 (0.0-7.0) % Baso % (Auto) 0.5 (0.0-3.0) % Neut # (Auto) 6.40 (1.7-7.0) K/uL Lymph # (Auto) 4.00 H (0.90-2.90) K/uL [place] # (Auto) 1.40 H (0.00-0.90) K/UL Eos # (Auto) 0.30 (0.00-0.50) K/uL Baso # (Auto) 0.10 (0.00-0.30) K/uL Abs Immat Gran (auto) 0.00 (0.00-0.30) K/uL Imm/Tot Granulo (auto) 0.1 % Sodium 140 (135-149) mmol/L Potassium 2.8 L* (3.6-5.1) mmol/L Chloride 103 (96-114) mmol/L Carbon Dioxide 20 (20-32) mmol/L Anion Gap 17 H (7-15) mEq/L BUN 26 (7-30) mg/dL Creatinine 1.5 (0.5-1.5) mg/dL Estimated Creat Clear 59.96 Estimated GFR 55 ml/min Glucose 207 H (60-115) mg/dL Calcium 9.1 (8.4-10.6) mg/dL Magnesium 1.8 (1.5-2.6) mg/dL Total Bilirubin 0.5 (0.1-1.5) mg/dL AST 39 H (12-35) U/L ALT 35 (4-50) U/L Alkaline Phosphatase 109 (40-150) U/L Total Protein 8.3 (6.0-8.3) g/dL Albumin 4.4 (3.3-5.0) g/dL Urine Opiates Screen Negative (Negative) Ur Oxycodone Screen Negative (Negative) Urine Methadone Screen Negative (Negative) Ur Barbiturates Screen Negative (Negative) U Tricyclic Antidepress Negative (Negative) Ur Phencyclidine Scrn Negative (Negative) Ur Amphetamines Screen POSITIVE A (Negative) U Methamphetamines Scrn POSITIVE A (Negative) U Benzodiazepines Scrn Negative (Negative) Urine Cocaine Screen Negative (Negative) U Marijuana (THC) Screen POSITIVE A (Negative) Ur Drug Screen Comment See Note Ethyl Alcohol < 0.01 (0.01-0.03) % POC Troponin I 0.00 L (0.01-0.04) ng/ml <Ariana Schofield MD - Last Filed: 01/04/25 19:47> Lab Results 01/04/25 01/04/25 01/04/25 Range/Units 19:40 19:50 19:56 WBC 12.15 H (4.50-11.00) K/uL RBC 3.87 L (4.30-5.90) m/uL Hgb 10.5 L (13.5-17.5) gm/dL Hct 32.1 L (37.0-53.0) % MCV 83 (80-100) fL MCH 27 (26-34) pg MCHC 33 (32-36) gm/dL RDW Coeff of [place] 13.9 (11.5-15.5) % Plt Count 435 (140-440) K/uL Neut % (Auto) 52.4 (42.0-72.0) % Lymph % (Auto) 32.7 (20-44) % [place] % (Auto) 11.7 H (0.0-11.0) % Eos % (Auto) 2.6 (0.0-7.0) % Baso % (Auto) 0.5 (0.0-3.0) % Neut # (Auto) 6.40 (1.7-7.0) K/uL Lymph # (Auto) 4.00 H (0.90-2.90) K/uL [place] # (Auto) 1.40 H (0.00-0.90) K/UL Eos # (Auto) 0.30 (0.00-0.50) K/uL Baso # (Auto) 0.10 (0.00-0.30) K/uL Abs Immat Gran (auto) 0.00 (0.00-0.30) K/uL Imm/Tot Granulo (auto) 0.1 % Sodium 140 (135-149) mmol/L Potassium 2.8 L* (3.6-5.1) mmol/L Chloride 103 (96-114) mmol/L Carbon Dioxide 20 (20-32) mmol/L Anion Gap 17 H (7-15) mEq/L BUN 26 (7-30) mg/dL Creatinine 1.5 (0.5-1.5) mg/dL Estimated Creat Clear 59.96 Estimated GFR 55 ml/min Glucose 207 H (60-115) mg/dL Calcium 9.1 (8.4-10.6) mg/dL Magnesium 1.8 (1.5-2.6) mg/dL Total Bilirubin 0.5 (0.1-1.5) mg/dL AST 39 H (12-35) U/L ALT 35 (4-50) U/L Alkaline Phosphatase 109 (40-150) U/L Total Protein 8.3 (6.0-8.3) g/dL Albumin 4.4 (3.3-5.0) g/dL Urine Opiates Screen Negative (Negative) Ur Oxycodone Screen Negative (Negative) Urine Methadone Screen Negative (Negative) Ur Barbiturates Screen Negative (Negative) U Tricyclic Antidepress Negative (Negative) Ur Phencyclidine Scrn Negative (Negative) Ur Amphetamines Screen POSITIVE A (Negative) U Methamphetamines Scrn POSITIVE A (Negative) U Benzodiazepines Scrn Negative (Negative) Urine Cocaine Screen Negative (Negative) U Marijuana (THC) Screen POSITIVE A (Negative) Ur Drug Screen Comment See Note Ethyl Alcohol < 0.01 (0.01-0.03) % POC Troponin I 0.00 L (0.01-0.04) ng/ml <Mat Morel MD - Last Filed: 01/06/25 14:51> Discharge Plan Discharge Clinical Impression: Methamphetamine use <Ariana Schofield MD - Last Filed: 01/04/25 19:47> Patient Disposition: Home, Self-Care <Ariana Schofield MD - Last Filed: 01/04/25 19:47> Condition: Improved <Ariana Schofield MD - Last Filed: 01/04/25 19:47> Instructions: Methamphetamine Use Disorder (ED) <Ariana Schofield MD - Last Filed: 01/04/25 19:47> Activity Level: No Restrictions <Ariana Schofield MD - Last Filed: 01/04/25 19:47> No Restrictions <Mat Morel MD - Last Filed: 01/06/25 14:51> Discharge Diet: Regular <Ariana Schofield MD - Last Filed: 01/04/25 19:47> Regular <Mat Morel MD - Last Filed: 01/06/25 14:51> Prescriptions: No Action insulin aspart U-100 [Novolog FlexPen U-100 Insulin] 100 unit/mL (3 mL) insulin pen 5 unit subcut TIDWM Rx Instructions: fast acting insulin, with meals insulin glargine [Lantus Solostar U-100 Insulin] 100 unit/mL (3 mL) insulin pen 15 unit subcut BID acetaminophen 325 mg Tablet 650 mg PO QID PRN30 Days Qty: 50 0RF doxycycline hyclate 100 mg Tablet 100 mg PO BID 10 Days Qty: 20 0RF amoxicillin-pot clavulanate 875-125 mg Tablet 1 tab PO BIDWM 10 Days Qty: 20 0RF Lactobacillus acidophilus 0.5 mg (100 million cell) Tablet 2 mg PO TIDWM 90 Days Qty: 360 1RF chlorhexidine gluconate 0.12 % Mouthwash 15 ml SWISH/SPIT QID 7 Days Qty: 473 0RF doxycycline monohydrate 100 mg capsule 100 mg PO BID 10 Days Qty: 20 0RF aspirin 81 mg capsule 81 mg PO DAILY atorvastatin 40 mg tablet 40 mg PO DAILY diphenhydramine HCl 25 mg tablet 25 mg PO HS lisinopril 2.5 mg tablet 2.5 mg PO DAILY metoprolol tartrate 25 mg tablet 12.5 mg PO BID pantoprazole [address] for susp in packet 40 mg PO DAILY <Ariana Schofield MD - Last Filed: 01/04/25 19:47> Follow Up/Referrals: Provider,Not a Local [Primary Care Provider] - <Ariana Schofield MD - Last Filed: 01/04/25 19:47> Stand Alone Forms: MyHealth Info Instructions <Ariana Schofield MD - Last Filed: 01/04/25 19:47>
[2025-01-04] MEDS: OLANZapine 5 MG/ML inj IM (19:55)
--- NOTE | 2025-01-04 19:57 | ED_ITS ---
HPI - General Adult General Date Seen: 01/04/25 Chief complaint: Shortness of Breath/Dyspnea Stated complaint: chest pain Time Seen by Provider: 01/04/25 19:47 Source: patient Mode of arrival: ambulatory Limitations: no limitations History of Present Illness HPI narrative: Patient is a 54-year-old male brought in by a friend into the ER, history difficult to obtain, patient was complaining about his mouth being dry and trouble breathing, agitated, flailing around, not providing any other history initially. Ultimately did acknowledge to me that he had smoked a little meth. Related Data Home Medications ?Medication ?Instructions ?Recorded ?Confirmed aspirin 81 mg capsule 81 mg PO DAILY 12/27/23 02/01/24 atorvastatin 40 mg tablet 40 mg PO DAILY 12/27/23 02/01/24 diphenhydramine HCl 25 mg tablet 25 mg PO HS 12/27/23 02/02/24 lisinopril 2.5 mg tablet 2.5 mg PO DAILY 12/27/23 02/01/24 metoprolol tartrate 25 mg tablet 12.5 mg PO BID 12/27/23 02/01/24 pantoprazole 40 mg granules 40 mg PO DAILY 12/27/23 02/01/24 delayed-release for susp in packet insulin aspart U-100 100 unit/mL 5 unit subcut TIDWM 02/02/24 02/02/24 (3 mL) subcutaneous pen (Novolog FlexPen U-100 Insulin aspart) insulin glargine 100 unit/mL (3 15 unit subcut BID 02/02/24 02/02/24 mL) subcutaneous pen (Lantus Solostar U-100 Insulin) Previous Rx's ?Medication ?Instructions ?Recorded Lactobacillus acidophilus 0.5 mg 2 mg (4 x 0.5 mg (100 million 02/05/24 (100 million cell) tablet cell)) PO TIDWM 90 days #360 tabs acetaminophen 325 mg tablet 650 mg (2 x 325 mg) PO QID PRN 30 02/05/24 days #50 tabs amoxicillin 875 mg-potassium 1 tab PO BIDWM 10 days #20 tabs 02/05/24 clavulanate 125 mg tablet chlorhexidine gluconate 0.12 % 15 ml SWISH/SPIT QID 7 days #473 mL 02/05/24 mouthwash doxycycline hyclate 100 mg tablet 100 mg PO BID 10 days #20 tabs 02/05/24 doxycycline monohydrate 100 mg 100 mg PO BID 10 days #20 caps 02/06/24 capsule Allergies Allergy/AdvReac Type Severity Reaction Status Date / Time oxycodone (From OxyContin) Allergy Intermediate Verified 01/09/24 09:32 Review of Systems Status of ROS: Reports: unobtainable due to medical condition [facility] Medical History Lip abscess ?K13.0 - Diseases of lips (ICD-10) Smoking ?F17.200 - Nicotine dependence, unspecified, uncomplicated (ICD-10) Dental decay ?K02.9 - Dental caries, unspecified (ICD-10) Facial abscess ?L02.01 - Cutaneous abscess of face (ICD-10) Methamphetamine abuse ?F15.10 - Other stimulant abuse, uncomplicated (ICD-10) Tobacco dependence ?F17.200 - Nicotine dependence, unspecified, uncomplicated (ICD-10) Renal insufficiency ?N28.9 - Disorder of kidney and ureter, unspecified (ICD-10) Crohn's colitis ?K50.10 - Crohn's disease of large intestine without complications (ICD-10) Diabetes mellitus type 2, insulin dependent ?E11.9 - Type 2 diabetes mellitus without complications (ICD-10) ?Z79.4 - exterminator helper (current) use of insulin (ICD-10) Hyperlipidemia ?E78.5 - Hyperlipidemia, unspecified (ICD-10) Ischemic cardiomyopathy ?I25.5 - Ischemic cardiomyopathy (ICD-10) CAD (coronary artery disease) ?I25.10 - Atherosclerotic heart disease of [place] coronary artery without angina pectoris (ICD-10) Hypertension ?I10 - Essential (primary) hypertension (ICD-10) Crohn's disease ?K50.90 - Crohn's disease, unspecified, without complications (ICD-10) Surgical History Presence of coronary angioplasty implant and graft ?Z95.5 - Presence of coronary angioplasty implant and graft (ICD-10) Social History (Updated 02/01/24 @ 23:44 by Jerad Saleh MD) Narrative: He lives alone in [place]. Is next door neighbor is Dilip Vallejo. He indicates that Dilip would be his healthcare power of patent prosecution attorney. Code status is full. He continues to smoke cigarettes. He does not drink alcohol. Reports no recreational drug use. What is your current living situation?: I presently have a place to live Problems where you live: no known problems Problems where you live details: pt lives in [facility] In the past 12 months, utilities in danger of being shut off: no In past 12 months, lack of transportation kept you from medical appts, meetings, work, or getting things needed for daily living: no In the past 12 mos, have been you worried that your food would run out before you had money to buy more?: never true In the past 12 mos, the food you bought just didn't last and you didn't have money to buy more?: never true Highest level of school completed/degree received: 11th grade Smoking Status: Current every day smoker What tobacco products do you use: cigarettes Years smoked: 15 Do you use any of these nicotine containing products: None Second hand tobacco smoke exposure: Yes How often do you have a drink containing alcohol: never How often do you have six or more drinks on one occasion: Never AUDIT-C Alcohol total score: 0 Non-prescribed substance use: denies use Caffeine: Yes (Soda) How often does anyone, including family, friends and others, physically hurt you : never How often does anyone, including family, friends and others, insult or talk down to you: never How often does anyone, including family, friends and others, threaten you with harm: never How often does anyone, including family, friends and others, scream or curse at you: never service: No Exam Narrative: Exam Narrative: Vital signs reviewed In general, alert, kind of clawing at his mouth, flailing around on the bed intermittently. Head: Normocephalic, atraumatic. Eyes: Sclera clear. Pupils equal and reactive. ENT: Mucous membranes dry. No facial trauma. Neck: Moves neck freely. Heart: Tachycardic regular, no obvious murmur. Lungs: Clear. No increased work of breathing, crackles or wheezes. Chest is atraumatic. Abdomen: Soft, protuberant. Seems nontender. Extremities: Well perfused, pulses intact. No significant edema. No visible trauma. Neurologic: He is alert, speech is difficult to understand. He is oriented to person and place. Moves all extremities spontaneously. Answers question sporadically but does not otherwise follow commands Skin: Warm, dry well perfused. Affect: Altered. Const: Vital Signs, click to edit/add: Vital Signs - 24 hr 01/04/25 19:40 01/04/25 20:19 01/04/25 20:31 Temperature 98.5 F Pulse Rate [Left P ulse Oximeter] 130 H 104 H Respiratory Rate 48 H 16 Blood Pressure [Ri ght Upper Arm] 151/130 H 124/77 Pulse Oximetry 100 96 96 Oxygen Delivery Me thod Room Air Nasal Cannula Oxygen Flow Rate 2 01/04/25 21:20 01/04/25 21:50 01/04/25 22:11 Temperature 98.6 F Pulse Rate [Left P ulse Oximeter] 115 H 94 99 Respiratory Rate 18 16 16 Blood Pressure [Ri ght Upper Arm] 110/69 103/63 99/57 L Pulse Oximetry 96 97 97 Oxygen Delivery Me thod Nasal Cannula Room Air Nasal Cannula Oxygen Flow Rate 2 2 01/04/25 23:29 Temperature Pulse Rate [Left P ulse Oximeter] 84 Respiratory Rate 16 Blood Pressure [Ri ght Upper Arm] 126/87 Pulse Oximetry 93 Oxygen Delivery Me thod Room Air Oxygen Flow Rate Course Course ED Course: Presentation is likely attributable to methamphetamine use, he is agitated and somewhat difficult to control so I am giving him Zyprexa 5 mg IM to start and will see how we do after that. I am ordering basic labs, urine drug screen, alcohol level. EKG showed with the computer is calling an accelerated junctional rhythm, this does to me look like a sinus tachycardia at 1:25 a.m. without acute at T segment changes. Aside from tachycardia, vital signs are otherwise unremarkable, respiratory rate is recorded at 48 however after being at the bedside I am not certain that that is accurate. He is not febrile. O2 sats are 100% on room air. He is not showing any increased work of breathing. Patient has been sleeping since receiving Zyprexa. Vital signs remained stable, tachycardia improved. I do not think he was really tachypneic earlier, I think that was an error recording, respiratory rate now 16. Labs reviewed, drug screen which is positive for marijuana and methamphetamine. Blood alcohol is 0. He is a little bit anemic at 10.5 but this appears to be his baseline. Potassium was low at 2.8, this was replaced. Point of care troponin 0. Patient will likely sleep here overnight, plan for discharge in the morning. No other apparent medical issues at this time. Signed out to tomas POLLOCK. Vital Signs Vital signs: Initial Vital Signs Temperature 98.5 F 01/04/25 19:40 Temperature Source Temporal Artery Scan 01/04/25 19:40 Pulse Rate 130 H 01/04/25 19:40 Respiratory Rate 48 H 01/04/25 19:40 Blood Pressure 151/130 H 01/04/25 19:40 Blood Pressure Mean 137 H 01/04/25 19:40 Blood Pressure Position Semi-Fowlers 01/04/25 19:40 Pulse Oximetry 100 01/04/25 19:40 Oxygen Delivery Method Room Air 01/04/25 19:40 Vital Signs Temperature 98.5 F 01/04/25 19:40 Pulse Rate 130 H 01/04/25 19:40 Respiratory Rate 48 H 01/04/25 19:40 Blood Pressure 151/130 H 01/04/25 19:40 Pulse Oximetry 100 01/04/25 19:40 Oxygen Delivery Method Room Air 01/04/25 19:40 Temperature 98.6 F 01/04/25 21:50 Pulse Rate 70 01/05/25 05:05 Respiratory Rate 16 01/05/25 05:05 Blood Pressure 126/87 01/05/25 00:46 Pulse Oximetry 93 01/05/25 05:05 Oxygen Delivery Method Room Air 01/05/25 05:05 Oxygen Flow Rate 0 01/05/25 05:05 Medications Administered Medications: Discontinued Medications Generic Name Dose Route Start Last Admin Trade Name Freq PRN Reason Stop Dose Admin Potassium Chloride 10 meq in 100 mls @ 100 mls/hr 01/04/25 21:00 01/04/25 23:22 Potassium Chloride IVPB 01/04/25 23:29 Infused Q90M TRAVIS Infusion Olanzapine 5 mg 01/04/25 19:49 01/04/25 19:55 Olanzapine 5 Mg/Ml Inj IM 01/04/25 19:50 5 mg ONCE ONE Administration Medical Decision Making Lab Data Lab results reviewed: Yes I reviewed the patient's lab results Labs: Lab Results 01/04/25 01/04/25 01/04/25 Range/Units 19:40 19:50 19:56 WBC 12.15 H (4.50-11.00) K/uL RBC 3.87 L (4.30-5.90) m/uL Hgb 10.5 L (13.5-17.5) gm/dL Hct 32.1 L (37.0-53.0) % MCV 83 (80-100) fL MCH 27 (26-34) pg MCHC 33 (32-36) gm/dL RDW Coeff of Irma 13.9 (11.5-15.5) % Plt Count 435 (140-440) K/uL Neut % (Auto) 52.4 (42.0-72.0) % Lymph % (Auto) 32.7 (20-44) % Sumner % (Auto) 11.7 H (0.0-11.0) % Eos % (Auto) 2.6 (0.0-7.0) % Baso % (Auto) 0.5 (0.0-3.0) % Neut # (Auto) 6.40 (1.7-7.0) K/uL Lymph # (Auto) 4.00 H (0.90-2.90) K/uL Sumner # (Auto) 1.40 H (0.00-0.90) K/UL Eos # (Auto) 0.30 (0.00-0.50) K/uL Baso # (Auto) 0.10 (0.00-0.30) K/uL Abs Immat Gran (auto) 0.00 (0.00-0.30) K/uL Imm/Tot Granulo (auto) 0.1 % Sodium 140 (135-149) mmol/L Potassium 2.8 L* (3.6-5.1) mmol/L Chloride 103 (96-114) mmol/L Carbon Dioxide 20 (20-32) mmol/L Anion Gap 17 H (7-15) mEq/L BUN 26 (7-30) mg/dL Creatinine 1.5 (0.5-1.5) mg/dL Estimated Creat Clear 59.96 Estimated GFR 55 ml/min Glucose 207 H (60-115) mg/dL Calcium 9.1 (8.4-10.6) mg/dL Magnesium 1.8 (1.5-2.6) mg/dL Total Bilirubin 0.5 (0.1-1.5) mg/dL AST 39 H (12-35) U/L ALT 35 (4-50) U/L Alkaline Phosphatase 109 (40-150) U/L Total Protein 8.3 (6.0-8.3) g/dL Albumin 4.4 (3.3-5.0) g/dL Urine Opiates Screen Negative (Negative) Ur Oxycodone Screen Negative (Negative) Urine Methadone Screen Negative (Negative) Ur Barbiturates Screen Negative (Negative) U Tricyclic Antidepress Negative (Negative) Ur Phencyclidine Scrn Negative (Negative) Ur Amphetamines Screen POSITIVE A (Negative) U Methamphetamines Scrn POSITIVE A (Negative) U Benzodiazepines Scrn Negative (Negative) Urine Cocaine Screen Negative (Negative) U Marijuana (THC) Screen POSITIVE A (Negative) Ur Drug Screen Comment See Note Ethyl Alcohol < 0.01 (0.01-0.03) % POC Troponin I 0.00 L (0.01-0.04) ng/ml Discharge Plan Discharge Clinical Impression: Methamphetamine use Patient Disposition: Home, Self-Care Condition: Improved Instructions: Methamphetamine Use Disorder (ED) Activity Level: No Restrictions Discharge Diet: Regular Prescriptions: No Action insulin aspart U-100 [Novolog FlexPen U-100 Insulin] 100 unit/mL (3 mL) insulin pen 5 unit subcut TIDWM Rx Instructions: fast acting insulin, with meals insulin glargine [Lantus Solostar U-100 Insulin] 100 unit/mL (3 mL) insulin pen 15 unit subcut BID acetaminophen 325 mg Tablet 650 mg PO QID PRN30 Days Qty: 50 0RF doxycycline hyclate 100 mg Tablet 100 mg PO BID 10 Days Qty: 20 0RF amoxicillin-pot clavulanate 875-125 mg Tablet 1 tab PO BIDWM 10 Days Qty: 20 0RF Lactobacillus acidophilus 0.5 mg (100 million cell) Tablet 2 mg PO TIDWM 90 Days Qty: 360 1RF chlorhexidine gluconate 0.12 % Mouthwash 15 ml SWISH/SPIT QID 7 Days Qty: 473 0RF doxycycline monohydrate 100 mg capsule 100 mg PO BID 10 Days Qty: 20 0RF aspirin 81 mg capsule 81 mg PO DAILY atorvastatin 40 mg tablet 40 mg PO DAILY diphenhydramine HCl 25 mg tablet 25 mg PO HS lisinopril 2.5 mg tablet 2.5 mg PO DAILY metoprolol tartrate 25 mg tablet 12.5 mg PO BID pantoprazole [address] for susp in packet 40 mg PO DAILY Follow Up/Referrals: Provider,Not a Local [Primary Care Provider] - Stand Alone Forms: Gingr Info Instructions
[2025-01-04 20:10] LABS: Amphetamine Screen Urine POSITIVE (Negative); Barbiturate Screen Urine Negative (Negative); Benzodiazepines Screen Urine Negative (Negative); Cannabinoid Screen Urine POSITIVE (Negative); Cocaine Screen Urine Negative (Negative); Methadone Screen Urine Negative (Negative); Methamphetamines Screen Urine POSITIVE (Negative); Opiate Screen Urine Negative (Negative); Oxycodone Screen Urine Negative (Negative); Phencyclidine Screen Urine Negative (Negative); Tricyclic Antidepressant Urine Negative (Negative)
--- OUTSIDE RECORDS SUMMARY | 2025-01-04 20:20 | XMS_ITS | Clinical Summary ---
Author Organization [employer] [facility] Address [address] [place] [id number] Care Team Providers Care Courtesy Driver Name Role Phone Aaron Lambert DO Primary Care Provider Allergies Active Allergy Reactions Criticality Noted Date Comments Hydrocodone Itching Low 06/01/2019 Unlisted Allergen (Include Detail In Comments) GI Upset 06/01/2019 All oral pain meds give GI upset per Patient except Tylenol and Ibuprofen which don't work PT denies Medications Blood-Glucose Meter (ACCU-CHEK SHANIA PLUS METER) test 2 times daily 1 Kit 9 5:19 PM ADVERTISING SALES ASSISTANT 08/26/20 19 Active lancets (Accu-Chek Softclix Lancets)Indicati [...] 9:00 AM CDT 12/07/19 24 Active Insulin Plover, Disposable, (bd insulin pen needle uf mini) [...] state 06/05/2022 Coronary artery disease invo lving [place] coronary artery of [place] heart without angina pectoris 11/03/2020 Crohn's colitis [...] 10/14/2016 05/23/2019 Coronary artery disease invo lving [place] coronary artery of [place] heart with angina pectoris 10/14/2016 11/03/2020 Encounters Date Type Department Care Team Description 12/31/2024 Telephone [facility] [place] [facility] [place] [address] [place] [address] [place], [facility] Appointment 11/11/2024 [facility]phone [facility] [address] [facility] [address] Aaron Lambert DO Lab (Lab orders needed) 10/22/2024 Telephone [facility] [address] [place] [address] John Garcia MD Questions (Infusion orders) 10/16/2024 Telephone [facility] [address] [place] [address] John Garcia MD Orders (Clarification) 10/16/2024 Orders Only [facility] [address] [facility] [address] Aaron Lambert DO Letter (Needed for infusions at [place] 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 Not on file Not on file No t on file Obstetrics History Last Filed Vital Signs Vital Sign Reading Time Taken Comments Blood Pressure 130/79 09/03/2024 11:32 AM ADVERTISING SALES ASSISTANT Pulse 85 09/03/2024 11:32 AM ADVERTISING SALES ASSISTANT Temperature 36.6 C (97.8 F) 09/03/2024 11:32 AM ADVERTISING SALES ASSISTANT Respiratory Rate 18 09/03/2024 11:3 2 AM ADVERTISING SALES ASSISTANT Oxygen Saturation 99% 09/03/2024 11: 32 AM ADVERTISING SALES ASSISTANT Inhaled Oxygen Concentration - - Weight 87.9 kg (193 lb 11.2 oz) 024 11:32 AM ADVERTISING SALES ASSISTANT Height 180.3 cm (5' 11) 02/26/2024 2:10 PM CDT Body Mass Index 27.02 02/26/2024 2:10 PM CDT Plan of Treatment Upcoming Encounters Date Type Department Care Team (Late st Contact Info) Description 01/07/2025 2:05 PM CDT Office Visit [facility] [address] [facility] [place] [address] Aaron Lambert DO [address] [place] [address] 02/02/2025 12:00 PM CDT Appointment [facility] [address] [place] [address] Health Maintenance Due Date Last Done Comments [...] Annual physical exam COLONOSCOPY 11/05/2020 8:59 AM ADVERTISING SALES ASSISTANT ANTI HCV Routine 10/24/2017 2:46 PM ADVERTISING SALES ASSISTANT Crohn's disease of both small and large intestine without complication (HC) Diarrhea, unspecified type from Last 3 Months or Most Recently Relevant to Health Maintenance Results * (ABNORMAL) LIPID PANEL W REFLEX MEASURED LDL (02/26/2024 2:29 PM CDT) CHOLESTEROL,TOTAL 176 100 - 199 mg/dL 02/27/2024 4:02 AM CDT [facility] Comment: Cholesterol, Total Reference Ranges Desirable <200 mg/dL Borderline 200-239 mg/dL High >=240 mg/dL TRIGLYCERIDES 275(H) <150 mg/dL 02/27/2024 4:02 AM CDT [facility] HDL CHOLESTEROL 33(L) >40 mg/dL 4:02 AM CDT [facility] NON-HDL CHOLESTEROL 143 <145 mg/dl 02/27/2024 4:02 AM CDT [facility] CHOL/HDL RATIO 5.33(H) <4.50 02/27/2024 4:02 AM CDT [facility] LDL CHOLESTEROL 88 <=130 mg/dL 02/27/2024 4:02 AM CDT [facility] VLDL CHOLESTEROL 55(H) <=30 mg/dL 02/27/2024 4:02 AM CDT [facility] PROVIDER ORDERED STATUS RANDOM 02/27/2024 4:02 AM CDT [facility] Blood BLOOD SPECIMEN / Unknown Venipuncture / Unknown 02/26/2024 2:29 PM CDT 02/26/2024 2:31 PM CDT us Aaron Lambert DO CHEMISTRY Final Result [facility] [address] [place] [address], [place] * ANTI HIV 1/2 [98697.0] (02/26/2024 2:29 PM CDT) HIV-1/HIV-2 SCREEN Non-Reacti ve Non-Reacti ve 02/27/2024 3:48 AM CDT [facility] Comment:HIV-1 p24 and HIV-1/ HIV-2 Ab Not Detected. Blood BLOOD SPECIMEN / Unknown Venipuncture / Unknown 02/26/2024 2:29 PM CDT 02/26/2024 2:31 PM CDT Aaron Lambert DO SEND OUTS Final Result [facility] [address] [place] [address], [place] * COLONOSCOPY (11/05/2020 8:59 AM ADVERTISING SALES ASSISTANT) 11/05/2020 8:59 AM ADVERTISING SALES ASSISTANT Narrative Transcriptions Evelio Sorensen MD - 11/05/2020 9:36 AM CST [facility] Patient Name: Akira Merchant Procedure Date: 11/05/2020 Gender: Male Date of : 1970 Admit Type: Inpatient Procedure: Colonoscopy Proceduralist: Evelio S[facility] Referring MD: Kvng Rachel Indications/Pre-Op Diagnosis: Hematochezia, [...] lt * ANTI HCV (10/24/2017 2:46 PM ADVERTISING SALES ASSISTANT) HEPATITIS C ANTIBODY Non-Reacti ve Non-Reacti ve 10/24/2017 8:23 PM ADVERTISING SALES ASSISTANT [facility] Blood BLOOD SPECIMEN / Unknown Venipuncture / Unknown 10/24/2017 2:46 PM ADVERTISING SALES ASSISTANT 10/24/2017 3:47 PM ADVERTISING SALES ASSISTANT Narrative [facility] - 10/24/2017 8:23 PM ADVERTISING SALES ASSISTANT Antibodies to HCV not detected; does not exclude the possibility of exposure to HCV. us John Garcia MD SEND OUTS Final Res ult [facility] [address] [place] [address], [place] from Last 3 Months or Most [...] Code Status Discussion: Not Discussed Care Teams Courtesy Driver Relationship Specialty Start Date End Date Aaron Lambert DO [address] [place] [address] PCP - General Family Practice 08/25/24
--- OUTSIDE RECORDS SUMMARY | 2025-01-04 20:20 | XMS_ITS | Clinical Summary ---
Author Organization [facility] Address [address] [place] [address] Care Team Providers Care Job Foreman Name Role Phone Elsewhere, Pcp Primary Care Provider Unavailabl e Source Comments Patient records contain information from all sites at [facility]. For routine questions regarding patient records, call [phone] during business hours, M-F 8:00 AM - 5:00 PM Central Time. 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 Crohn's Disease (HCC) (Primary Dx) 10/24/2024 12:15 PM TIP CUTTER Infusion Department of Infusion Therapy in [address] [address] John Garcia M.D. Crohn's Disease (HCC) (Primary Dx) 10/23/2024 Documentation Department of Infusion Therapy in [address] [address] John Garcia M.D. 10/22/2024 Orders Only Department of Oncology in [address] [address] Vernell Pierce, D., R.Ph. 10/21/2024 Documentation Department of Infusion Therapy in [address] [address] John Garcia M.D. 10/21/2024 Orders Only Department of Infusion Therapy in [address] [address] John Garcia M.D. Crohn's Disease (HCC) (Primary [...] Sex Assigned at Male 08/01/2022 10:11 AM TIP CUTTER Legal Sex Male 10:19 AM TIP CUTTER Gender Identity Male 08/01/2022 10:11 AM TIP CUTTER Sexual Orientation Straight 08/01/2022 10 :11 AM TIP CUTTER Last Filed Vital Signs Vital Sign Reading [...] 178 cm (5' 10.08) 08/08/2019 9:40 PM TIP CUTTER Body Mass Index 29.67 08/08/2019 9:40 PM TIP CUTTER Plan of Treatment Health Maintenance Due Date [...] this topic Medical Devices Implanted Type Area Tactical Air Control Party Device Identifier Shelf Expiration Date Model / Serial / Lot Integrity Stent 3.5 X 15 - [employer] [id number] Implanted:Qty: 1 on 03/12/2012 Cardiac Stent Medtronic Description:Device Manufactu rer - Live Shuttle. Device Status Text - [id number]. Xience Stent 3.0 X 15 - [employer] [id number] Implanted:Qty: 1 on 03/21/2012 Cardiac Stent Grewal Description:Device Manufactu rer - [employer]. Device Status Text - [id number]. Stnt Ronyx Joseluis Rx 3.5x30 - [id number] Implanted:Qty: 1 on 08/09/2019 by Carlos Cruz M.D., Ph.D. at [facility] Cardiac Stent N/A: Coronary Medtronic 12/23/2020 [id number] / / [id number] Description:pLAD Procedures Procedure Name Priority Date/Time Associated Diagnosis Comments HEMOGLOBIN A1C, B Timed 08/09/2019 4:3 7 AM TIP CUTTER LIPID PANEL, S Timed 08/09/2019 4:37 AM TIP CUTTER BASIC METABOLIC PANEL, S/P Timed 08/09/2019 12:13 AM TIP CUTTER COLONOSCOPY Routine 07/12/2017 7:56 AM CDT ALBUMIN, RANDOM, U Routine 10/26/2016 3: 59 PM TIP CUTTER HEPATITIS B SURFACE ANTIGEN Routine 12/24/2014 11:05 AM CDT from Last 3 Months or Most Recently Relevant to Health Maintenance Results * (ABNORMAL) Lipid Panel (08/09/2019 4:37 AM TIP CUTTER) Pathologist [facility] Cholesterol, Total 138 mg/dL 2018 6:26 AM TIP CUTTER DTL Comment: ----REFERENCE VALUE---- Desirable: < 200 Borderline high: 200 - 239 High: > or = 240 Triglycerides 258(H) mg/dL 08/09/2019 6:26 AM TIP CUTTER DTL Comment: ----REFERENCE VALUE---- Normal: <150 Borderline high: 150-199 High: 200-499 Very high: > or =500 Cholesterol, HDL, S 35(L) >=40 mg/dL 08/09/2019 6:26 AM TIP CUTTER DTL Calculated LDL 51 mg/dL 08/09/2019 6:26 AM TIP CUTTER DTL Comment: ----REFERENCE VALUE---- Desirable: <100 Above Desirable: 100-129 Borderline high: 130-159 High: 160-189 Very high: > or =190 Cholesterol, Non-HDL, Calculated 103 mg/dL 08/09/2019 6:26 AM TIP CUTTER DTL Comment: ----REFERENCE VALUE---- Desirable: <130 Above Desirable: 130-159 Borderline high: 160-189 High: 190-219 Very high: > or =220 Blood (Blood, Venous) 08/09/2019 4:37 AM TIP CUTTER 08/09/2019 4:55 AM TIP CUTTER us Kristine Quigley M.D., Ph.D. LAB BLOOD ADD-ON Breana l Result [facility] [address] [place] [address], [place] [facility] [address] [place] [address] * (ABNORMAL) Hemoglobin A1c (08/09/2019 4:37 AM TIP CUTTER) Hemoglobin A1c, B 8.2(H) 4.0 - 5.6 % 08/09/2019 5:22 AM TIP CUTTER DTL Comment: Hemoglobin A1c values greater than or equal to 6.5 percent are diagnostic for diabetes mellitus. Diagnosis should be confirmed by repeat testing. In diabetic patients, HbA1c goals should be discussed with healthcare provider. Blood (Blood, Venous) 08/09/2019 4:37 AM TIP CUTTER 08/09/2019 4:55 AM TIP CUTTER us Kristine Quigley M.D., Ph.D. LAB BLOOD ADD-ON Breana l Result [facility] [address] [place] [address], [facility] [place] [address] [place] [address] * (ABNORMAL) BMP (Basic Metabolic Panel) (08/09/2019 12:13 AM TIP CUTTER) Pathologist [facility] Potassium, S 4.1 3.6 - 5.2 mmol/L 08/09/2019 1:06 AM TIP CUTTER DTL Sodium, S 132(L) 135 - 145 mmol/L 08/09/2019 1:06 AM TIP CUTTER DTL Chloride, S 96(L) 98 - 107 mmol/L 08/09/2019 1:06 AM TIP CUTTER DTL Bicarbonate, S 24 22 - 29 mmol/L 08/09/2019 1:06 AM TIP CUTTER DTL Anion Gap 12 7 - 15 08/09/2019 1:06 AM TIP CUTTER DTL BUN (Blood Urea Nitrogen), S 17 8 - 24 mg/dL 08/09/2019 1:06 AM TIP CUTTER DTL Creatinine 1.05 0.74 - 1.35 mg/dL 08/09/2019 1:06 AM TIP CUTTER DTL eGFR-Non Black/ 83 >=60 mL/min/BSA 08/09/2019 1:06 AM TIP CUTTER DTL Comment: ----ADDITIONAL INFORMATION---- Estimated GFR calculated using the 2009 CKD_EPI creatinine equation. eGFR-Black/Afri can Trinidadian >90 >=60 mL/min/BSA 08/09/2019 1:06 AM TIP CUTTER DTL Comment: ----ADDITIONAL INFORMATION---- Estimated GFR calculated using the 2009 CKD_EPI creatinine equation. Calcium, Total, S 8.7 8.6 - 10.0 mg/dL 08/09/2019 1:06 AM TIP CUTTER DTL Glucose, S 243(H) 70 - 140 mg/dL 08/09/2019 1:06 AM TIP CUTTER DTL Blood (Blood, Venous) 08/09/2019 12:13 AM TIP CUTTER 08/09/2019 12:29 AM TIP CUTTER us Kristine Quigley M.D., Ph.D. LAB BLOOD ADD-ON Breana l Result Performing Organization Address City/[facility] Co de Phone Number [facility] [address] [place] [address], [facility] [address] [place] [address] * Colonoscopy (07/12/2017 7:56 AM CDT) 07/12/2017 7:56 AM CDT us Alicia JcN.P. GI PROCEDURE ORDERABLES Fi nal Result Performing Organization Address [facility] de Phone Number HISTORICAL [facility] IMAGING CONVERSION * (ABNORMAL) Microalbumin, Random, Urine (10/26/2016 3:59 PM TIP CUTTER) Creatinine, Random, U 423(H) 40 - 278 MGDL POWERCHART HXU Albumin % 63.7 MGL POWERCHART Albumin/Creatin ine Ratio 15 0 - 17 MGG POWERCHART Urine 10/26/2016 3:59 PM TIP CUTTER us Ruth Sahnks APRN, C.N.P., R.N. LAB URINE ORDE RABLES Final Result Performing Organization Address City/[facility] Co de Phone Number POWERCHART * Hepatitis B Surface Antigen (12/24/2014 11:05 AM CDT) HBs Antigen, S Negative Negative POWERCHART Comment: Test Performed by: [facility] [address] [place] [address] Liner Installer: Kaveh Nuñez II, M.D., Ph.D. Blood 12/24/2014 11:0 5 AM CDT Nghia Thurston P.A.-C. LAB MICROBIOLOGY - BLO OD ORDERABLES Final Result POWERCHART from Last 3 Months or Most Recently Relevant to Health Maintenance Insurance [place] MEDICA[employer] Advance Directives For more information, please contact: [phone] * Full Code (Latest Code Status on File) Date Activated Date Inactivated Comments 08/08/2019 11:49 PM 08/09/2019 8:19 PM Question Answer Comments Full Code: Discussed Care Teams Job Foreman Relationship Specialty Start Date End Date Elsewhere, Pcp PCP - General Family Medicine 12/27/17
--- OUTSIDE RECORDS SUMMARY | 2025-01-04 20:21 | XMS_ITS | Encounter Summary ---
Author Organization [facility] Address [address] [place] [address] Care Team Providers Care Department Traffic Freight Router Name Role Phone Elsewhere, Pcp Primary Care Provider Unavailabl e Reason for Visit * Reason Comments Outpatient Infusion infliximab * Episode Based Medications (Routine) - Authorized Specialty Diagnoses / Procedures Referred By Contac t Referred To Contact Diagnoses Crohn's Disease (HCC) Procedures INJECTION, INFLECTRA [place] INFLIXIMAB INJECTION External, Ordering ProviderFrancisca [facility] Region Referral ID Status Reason Start Date Expiration Date V isits Requested Visits Authorized [id number] Authorized 10/21/2024 09/16/2025 8 8 Encounter Details Date Type Department Care Team (Late st Contact Info) Description 12/12/2024 1:00 PM CDT Infusion Department of Infusion Therapy in [place] [id number] [place] [address] John Garcia M.D. [address] [place] [phone] Crohn's Disease (HCC) (Primary Dx) Social History [...] Sex Assigned at Male 08/01/2022 10:11 AM COLORECTAL SURGEON Legal Sex Male 10:19 AM COLORECTAL SURGEON Gender Identity Male 08/01/2022 10:11 AM COLORECTAL SURGEON Sexual Orientation Straight 08/01/2022 10 :11 AM COLORECTAL SURGEON documented as of this encounter Last Filed [...] Body Mass Index 29.67 08/08/2019 9:40 PM COLORECTAL SURGEON documented in this encounter Plan of Treatment [...] Oncology, Product to dispense: Insurance mandated: inFLIXimab ([employer])Indications:Director Cpg hn's Disease (HCC) Rate/Dose Change 12/12/2024 2:16 PM CDT 300 mL/hr New Bag 12/12/2024 2:00 PM CDT 900 mg 100 mL/hr documented in this encounter Additional Health Concerns Assessment Noted Time PHQ-9 Depression Total Score: 1 08/09/20 19 8:57 AM COLORECTAL SURGEON documented as of this encounter Care Teams Department Traffic Freight Router Relationship Specialty Start Date End Date Elsewhere, Pcp PCP - General Family Medicine 12/27/17 documented as of this encounter
[2025-01-04 20:26] LABS: Albumin* 4.4 g/dL (3.3-5.0); Chloride* 103 mmol/L (96-114); Sodium* 140 mmol/L (135-149)
[2025-01-04 20:29] LABS: Alanine Aminotransferase* 35 U/L (4-50); Anion Gap 17 mEq/L (7-15); Aspartate Amino Transferase* 39 U/L (12-35); Blood Urea Nitrogen* 26 mg/dL (7-30); Carbon Dioxide* 20 mmol/L (20-32); Creatinine* 1.5 mg/dL (0.5-1.5); Est. Creatinine Clearance* 59.96; Estimated Glomerular Filt Rate 55 ml/min; Total Protein* 8.3 g/dL (6.0-8.3)
[2025-01-04 20:30] LABS: Alkaline Phosphatase* 109 U/L (40-150); Bilirubin Total* 0.5 mg/dL (0.1-1.5); Calcium* 9.1 mg/dL (8.4-10.6); Glucose* 207 mg/dL (60-115); Magnesium* 1.8 mg/dL (1.5-2.6)
[2025-01-04 20:31] LABS: Ethanol* < 0.01 % (0.01-0.03)
[2025-01-04 20:36] LABS: Potassium* 2.8 mmol/L (3.6-5.1)
[2025-01-04 20:48] LABS: Basophils Percent Auto 0.5 % (0.0-3.0); Eosinophils Percent Auto 2.6 % (0.0-7.0); Hematocrit 32.1 % (37.0-53.0); Hemoglobin* 10.5 gm/dL (13.5-17.5); Immature Granulocytes Pct Auto 0.1 %; Lymphocytes Percent Auto 32.7 % (20-44); Mean Corpuscular HGB Conc 33 gm/dL (32-36); Mean Corpuscular Hemoglobin 27 pg (26-34); Mean Corpuscular Volume 83 fL (80-100); Monocytes Percent Auto 11.7 % (0.0-11.0); Neutrophils Percent Auto 52.4 % (42.0-72.0); Platelet Count* 435 K/uL (140-440); RDW Coefficient of Variation % 13.9 % (11.5-15.5); Red Blood Count 3.87 m/uL (4.30-5.90); White Blood Count* 12.15 K/uL (4.50-11.00)
[2025-01-04] MEDS: POTASSIUM CHLORIDE 10 MEQ/100 ML PIGGYBACK 100 MEQ IVPB ×2 (21:02→22:01)
[2025-01-04 21:30] LABS: Slide Review Reflex No
[2025-01-05 00:46] VITALS: BP 126/87; PULSE 86; RESP 16; O2SAT 91
[2025-01-05 05:05] VITALS: PULSE 70; RESP 16; O2SAT 93
--- NOTE | 2025-01-05 09:26 | ED.NURSE ---
Pt discharged with ride from [employer]. [email or web address] was given a voucher for pt's ride home. Pt was walking with a steady gait and able to converse in complete sentences. Pt was fed breakfast before he left as well. Pt dressed appropriately for the weather.
== END 2025-01-05 09:28 | disposition home or self-care (01) ==
PROVIDERS: Emergency Medicine; Emergency Provider Emergency Medicine
DX: F15.10 Other stimulant abuse, uncomplicated (principal)
CPT/HCPCS: 36415; 80053; 80306; 82077; 83735; 84484; 85025; 93005; 94761; 99284; J3480